=== PATIENT | male | born 1985 | race Caucasian/White ===

== ENCOUNTER 2022-01-25 21:24 | Observation (INO) ==
[2022-01-26 00:40] LABS: Basophils # (auto) 0.04 K/uL (0-0.2); Basophils % (auto) 0.2 %; Hematocrit (blood only) 40.2 % (40.1-51.0); Hemoglobin 14.2 g/dl (14.0-18.0); Immature Granulocytes # (auto) 0.11 K/uL (0.00-0.02); Immature Granulocytes % (auto) 0.6 %; Lymphocytes # (auto) 0.67 K/uL (1.2-3.4); Lymphocytes % (auto) 3.5 %; Mean Corpuscular Hemoglobin 32.7 pg (25.0-34.0); Mean Corpuscular Hgb Conc 35.3 g/dL (32.0-36.0); Mean Corpuscular Volume 92.6 fL (80.0-100.0); Mean Platelet Volume 10.8 fL (9.4-12.4); Monocytes # (auto) 1.21 K/uL (0.24-0.82); Monocytes % (auto) 6.3 %; Neutrophils # (auto) 17.33 K/uL (1.4-6.5); Neutrophils % (auto) 89.4 %; Platelet Count 249 K/uL (130-400); RDW Coefficient of Variation 11.7 % (11.5-14.5); RDW Standard Deviation 39.8 fL (36.4-46.3); Red Blood Count 4.34 M/uL (4.63-6.08); White Blood Count 19.36 K/ul (4.8-10.8)
[2022-01-26 00:53] LABS: Albumin Globulin Ratio 2.2 (0.9-2); Albumin Level 5.2 gm/dl (3.4-5.0); BUN Creatinine Ratio 23.1 (10-20); Bilirubin,Total 0.9 mg/dl (0.2-1.0); Creatinine Clr Calc Pharmacy 102.2 ml/min; Est GFR (African American) 126.1 ml/min; Est GFR (Non-African American) 108.8 ml/min; Globulin 2.4 gm/dl (2.5-4.0); Potassium 3.7 mmol/L (3.5-5.1); Total Protein 7.6 gm/dl (6.0-8.3)
[2022-01-26] MEDS ORDERED: LEVETIRACETAM IV STA (02:01)
[2022-01-26] MEDS ORDERED: SODIUM CHLORIDE 0.9% IV STA (02:01)
[2022-01-26] MEDS ORDERED: levETIRAcetam 1,000 MG in 0.9 % SODIUM CHLORIDE 100 ML IV STA (02:06)
--- NOTE | 2022-01-26 02:53 | History & Physical Report ---
Date of Service January 26, 2022 Assessment & Plan (1) Seizure-like activity: Plan: Patient is a 36 yo male with PMHx of anxiety, ADD, OCD, cyclic vomiting syndrome, and seizure admitted on 01/26/22 for seizure. Seizure - Patient with 2 reported seizures in the past 24 hours - Will admit to [id number] w/ tele - Head CT 01/25: IMPRESSION: No acute intracranial abnormality noting a motion compromised examination. - Mild leukocytosis with WBC 19.36, likely reactive - Lactate wnl at 1.1 and 1.3 - Prolactin elevated at 31.4 - UDS positive for marijuana, otherwise negative - Alcohol level negative - Keppra 1g IV given to patient in ER - Will start patient on Keppra 500mg BID. Further recommendations per neurology. - Ativan 2mg IV to be used prn for seizure activity - Seizure precautions - EEG ordered - Neurology consulted Alcohol use - Patient reports 3-5 glasses of red wine nightly - No reported hx of alcohol withdrawal - Will start AWSS at risk protocol Anxiety - No home medication for anxiety - Unknown current therapy for the anxiety - Patient does feel more stressed recently but denies recent changes in mood Dispo: Admit to [facility] w/ tele Diet: regular Code status: Full code History of Present Illness Chief Complaint: seizure Primary Care Provider: Logan Nails DO Patient is a 36 yo male with PMHx of anxiety, ADD, OCD, cyclic vomiting syndrome, and seizure who presented s/p seizure. Patient was seen in the ER yesterday afternoon for possible seizure. Patient was discharged home after a normal head CT, discussion with neurology, labs, and observation. After returning home, patient had another witnessed seizure episode by family members. Unfortunately there is no family at bedside at this time and history is limited by patient. Patient does have amnesia and does not recall being in the ER yesterday. He states that the last thing he remembers was waking up yesterday morning, going downstairs with his family, and reporting a hot flash / sweats. Patient states that he has had these abnormal hot flash episodes for about 8 years; episodes are described as periods of hot flash, "profuse sweating," nausea, confusion, and diffuse body aches/body burning. The episodes were occurring multiple times weekly but more recently have decreased in frequency, occurring about once every 2 weeks. Patient states that these hot flashes have been worked up many times with no specific diagnosis. Patient also reports a hx of seizures that started in high school but he has not had one "in a long time" and is not on an anti-epileptic medication. Previously had license taken away due to the seizure hx but has had his license back for some time. During the interview, patient did become confused, particularly about his age, and at one point said "well I'm 33 now..." When asked for clarification based on his documented age in the chart being 36, patient stated "no, that's wrong, I'm 33. Or maybe 34. No, 33. Wait, I was born in 1985." Patient did become frustrated by this confusion and memory loss. Patient states that he is currently completing his degree at [employer] in romance language studies. 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 Patient does admit to recent increased stress, especially at work during this football/busy season. He has a hx of anxiety but apart from being more stressed with work he does not feel that his mood has been more anxious. Patient is a regular alcohol user and drinks 3-5 glasses of red wine per night; denies beer or liquor consumption. He does not feel that he has had withdrawal in the past. He uses + medical marijuana, both smokes and uses capsules, multiple times daily; reports higher THC content with the medical marijuana which he buys from a distributor. Patient denies synthetic marijuana use. He denies other drug use. Patient reports mild CLANCY and nausea at this time. Denies CP, SOB, abd pain, vomiting, numbness, or tingling. Allergies Allergy/AdvReac Type Severity Reaction Status Date / Time Sulfa (Sulfonamide Allergy Unknown "SULFA = Verified 01/26/22 00:38 Antibiotics) UNSURE OF REACTION" Home Medications Medication Instructions Recorded Confirmed Type K-99 Mix A Pro 1 dose PO DAILY 01/26/22 01/26/22 History Selicore Binder 1 dose PO DAILY 01/26/22 01/26/22 History cetirizine 10 mg tablet (Zyrtec) 10 mg PO DAILY PRN Congestion 01/26/22 01/26/22 History cod liver oil 1 cap PO DAILY 01/26/22 01/26/22 History coenzyme Q10 100 mg capsule 100 mg PO DAILY 01/26/22 01/26/22 History (CoQ-10) famotidine 20 mg tablet (Pepcid) 20 mg PO DAILY 01/26/22 01/26/22 History magnesium oxide 500 mg tablet 500 mg PO DAILY 01/26/22 01/26/22 History Past Med/Surg History Medical History ADD (attention deficit disorder) Anxiety Cyclical vomiting Depression Hypokalemia OCD (obsessive compulsive disorder) Overdose (05/28/14) Seizures Suicidal ideation Surgical History No significant past surgical history Family History Other No significant family history Social History Smoking Status: Former smoker Tobacco Type: Cigarettes Age Started Using Tobacco: 17; Age Quit Using Tobacco: 33; packs per day: 1; Years Smoked: 16; Second Hand Exposure: No; Hx Alcohol Use: Yes Alcohol type: wine Hx Substance Use: Yes Last Used Substance: Days (ago) Preferred Language: Sammarinese Communication Ability: Effective Visual Impairment: Limited Hearing Ability: Normal Shovel Handle Assembler Required: No Beliefs That Will Affect Care: None marital status: Single Current Living Situation: Family current occupational status: employed Other Information That Helps Us Care for You: No Feels Safe at Home: Yes Safety Concerns: Feels Safe At This Time Childhood Exposure to Second-Hand Smoke: Yes Diet Comment: organic caffeine: Yes Dental Care, Regularly: Yes Physical Activity Frequency: 5-6 Times per Week Physical Activity Frequency Comment: run, cross country skiing weights and cardio Seatbelt Use: always Sunscreen Use: No Assistive Devices: None Review of Systems Review of Systems: see HPI Physical Exam Physical Exam: GENERAL: Laying in bed in no acute distress. Vital signs reviewed. EYES: PERRL. EOMI. Anicteric sclerae. HENT: Moist mucous membranes. RESPIRATORY: Clear to auscultation bilaterally. No wheezing, rales, or rhonchi. CARDIOVASCULAR: Regular rate and rhythm. No murmurs. No JVD. ABDOMEN: Soft, non-tender and non-distended. Normal bowel sounds. EXTREMITIES: No edema. Non-tender. 2+ pedal pulses. SKIN: Warm, dry. NEUROLOGIC: Normal speech. No focal neurological deficits. 5/5 strength in BUE and BLE. PSYCHIATRIC: Cooperative. Appropriate mood and affect. Results & Data Results & Data ([facility]) Vital Signs (Past 12 Hours) Vital Signs Temp Pulse Pulse Resp BP Pulse Ox O2 Del Method 01/26/22 02:00 73 20 115/59 L 97 Room Air 01/26/22 00:55 60 20 128/72 97 01/25/22 22:55 99 Room Air 01/25/22 21:30 36.7 C 67 18 99 Laboratory Results 01/26/22 01/26/22 01/26/22 Range/Units 03:15 03:15 01:19 WBC (4.8-10.8) K/ul RBC (4.63-6.08) M/uL Hgb (14.0-18.0) g/dl Hct (40.1-51.0) % MCV (80.0-100.0) fL MCH (25.0-34.0) pg MCHC (32.0-36.0) g/dL RDW Std Deviation (36.4-46.3) fL RDW Coeff of Debbie (11.5-14.5) % Plt Count (130-400) K/uL MPV (9.4-12.4) fL Immature Gran % (Auto) % Neut % (Auto) % Lymph % (Auto) % Nome % (Auto) % Eos % (Auto) % Baso % (Auto) % Neut # (Auto) (1.4-6.5) K/uL Lymph # (Auto) (1.2-3.4) K/uL Nome # (Auto) (0.24-0.82) K/uL Eos # (Auto) (0-0.50) K/uL Baso # (Auto) (0-0.2) K/uL Immature Gran # (Auto) (0.00-0.02) K/uL Sodium (136-145) mmol/L Potassium (3.5-5.1) mmol/L Chloride (98-107) mmol/L Carbon Dioxide (21-32) mmol/L Anion Gap (3-11) BUN (6-23) mg/dl Creatinine (0.6-1.4) mg/dl Est Cr Clr Drug Dosing ml/min Est GFR ( Amer) ml/min Est GFR (Non-Af Amer) ml/min BUN/Creatinine Ratio (10-20) Glucose (70-99(Fasting)) mg/dl Lactate (0.4-2.0) mmol/L Calcium (8.5-10.1) mg/dl Total Bilirubin (0.2-1.0) mg/dl AST (13-39) U/L ALT (7-52) U/L Alkaline Phosphatase (34-104) U/L Total Protein (6.0-8.3) gm/dl Albumin (3.4-5.0) gm/dl Globulin (2.5-4.0) gm/dl Albumin/Globulin Ratio (0.9-2) Urine Opiates Screen Neg (Neg) Ur Methadone, Qual Neg (Neg) Urine Barbiturates Neg (Neg) Ur Phencyclidine (PCP) Neg (Neg) U Amphetamin/Meth Scrn Neg (Neg) MDMA (Ecstasy) Screen Neg (Neg) U Benzodiazepines Scrn Neg (Neg) Ur Cocaine Metabolite Neg (Neg) U Marijuana (THC) Screen Pos H (Neg) U Marijuana THC Carboxy Pending Drug Screen Comment Pending SARS-CoV-2, RNA, NAAT NEGATIVE (NEGATIVE) 01/26/22 01/25/22 01/25/22 Range/Units 01:02 23:15 23:15 WBC 19.36 H (4.8-10.8) K/ul RBC 4.34 L (4.63-6.08) M/uL Hgb 14.2 (14.0-18.0) g/dl Hct 40.2 (40.1-51.0) % MCV 92.6 (80.0-100.0) fL MCH 32.7 (25.0-34.0) pg MCHC 35.3 (32.0-36.0) g/dL RDW Std Deviation 39.8 (36.4-46.3) fL RDW Coeff of Debbie 11.7 (11.5-14.5) % Plt Count 249 (130-400) K/uL MPV 10.8 (9.4-12.4) fL Immature Gran % (Auto) 0.6 % Neut % (Auto) 89.4 % Lymph % (Auto) 3.5 % Nome % (Auto) 6.3 % Eos % (Auto) 0.0 % Baso % (Auto) 0.2 % Neut # (Auto) 17.33 H (1.4-6.5) K/uL Lymph # (Auto) 0.67 L (1.2-3.4) K/uL Nome # (Auto) 1.21 H (0.24-0.82) K/uL Eos # (Auto) 0.00 (0-0.50) K/uL Baso # (Auto) 0.04 (0-0.2) K/uL Immature Gran # (Auto) 0.11 H (0.00-0.02) K/uL Sodium 135 L (136-145) mmol/L Potassium 3.7 (3.5-5.1) mmol/L Chloride 100 (98-107) mmol/L Carbon Dioxide 21 (21-32) mmol/L Anion Gap 14 H (3-11) BUN 21 (6-23) mg/dl Creatinine 0.91 (0.6-1.4) mg/dl Est Cr Clr Drug Dosing 102.2 ml/min Est GFR ( Amer) 126.1 ml/min Est GFR (Non-Af Amer) 108.8 ml/min BUN/Creatinine Ratio 23.1 H (10-20) Glucose 128 H (70-99(Fasting)) mg/dl Lactate 1.3 (0.4-2.0) mmol/L Calcium 10.0 (8.5-10.1) mg/dl Total Bilirubin 0.9 (0.2-1.0) mg/dl AST 32 (13-39) U/L ALT 21 (7-52) U/L Alkaline Phosphatase 46 (34-104) U/L Total Protein 7.6 (6.0-8.3) gm/dl Albumin 5.2 H (3.4-5.0) gm/dl Globulin 2.4 L (2.5-4.0) gm/dl Albumin/Globulin Ratio 2.2 H (0.9-2) Urine Opiates Screen (Neg) Ur Methadone, Qual (Neg) Urine Barbiturates (Neg) Ur Phencyclidine (PCP) (Neg) U Amphetamin/Meth Scrn (Neg) MDMA (Ecstasy) Screen (Neg) U Benzodiazepines Scrn (Neg) Ur Cocaine Metabolite (Neg) U Marijuana (THC) Screen (Neg) U Marijuana THC Carboxy Drug Screen Comment SARS-CoV-2, RNA, NAAT (NEGATIVE) Diagnostic Findings DAWSON MUNIZ(DAWSON)[id number] Allergy/Adv: Sulfa (Sulfonamide Antibiotics) (More) Close Head CT (Signed) Justin Perez - 01/25/22 Pelvis X-Ray (Signed) Faizan Dougherty - [birth year]19 [employer] [place], [place] [phone] CT Scan Report Patient:DAWSON MUNIZ Admit Date:01/25/22 MR#:[id number] Address1:[address] [place], [place] [address]PARESH MENDOZA Acct ID:[id number] Address2: Date:1985 [facility] Zip:[place] [address] Age:36 Location:ED Sex:M Room/Bed: Att Phy: Diagnosis:SEIZURE Josie Phy:Logan Nails, Service Date:01/25/22 Fam Phy: Interpreting Phy:Justin Perez MDAdmit Phy: Ordering Phy:Joe Irene MD cc: ~ CT SCAN OF THE BRAIN WITHOUT IV CONTRAST CLINICAL HISTORY: Change in mental status. COMPARISON STUDY: No priors TECHNIQUE: Unenhanced axial CT scan of the brain is performed from the vertex to the skull base. A dose lowering technique was utilized adhering to the principles of ALARA. The examination is compromised by motion artifact. The patient was scanned 3 times in an effort to improve image quality. CT DOSE: 1305.31 mGy.cm FINDINGS: Brain parenchyma: The brain parenchyma is normal in appearance. There is no hemorrhage, mass effect, or evidence of acute territorial ischemia by CT criteria. Serrano-white matter differentiation is preserved. No extra-axial fluid collection is seen. Ventricles, sulci, cisterns: Normal in configuration. Intracranial vasculature: The visualized intracranial vasculature at the skull base is normal in appearance. Calvarium: Unremarkable. Sinuses and mastoids: The visualized paranasal sinuses are clear. The mastoid air cells are well pneumatized. Orbits: The bony orbits are grossly intact. IMPRESSION: No acute intracranial abnormality noting a motion compromised examination. ACT 112: Negative or not required by law. Electronically signed by: Justin Perez M.D. 01/25/2022 2:37 PM Dictated:01/25/22 143 Transcribed: 01/25/221433 Supervising Physician Co-Signing Physician Notes Patient seen and examined, chart reviewed, case discussed with Dr. Flood and I agree with the assessment and plan as above. In brief, patient is a 36yo male with h/o ADD/Anxiety, OCD and Cyclic vomiting, he reports a prior history of seizures and was on medications for some time but is unable to provide further details. He presents to the ER x 2 for seizure at home, post ictal confusion and tongue trauma noted. On exam he is awake and alert, answering questions appropriately Skin - intact, no rash HEENT - tongue bruising, neck supple Heart - +S1/S2, regular Lungs - CTA Abd - +BS, soft, NT/ND Ext - warm, well perfused Neuro - grossly intact Labs and images reviewed Assessment/Plan Keppra administered in ER. Will continue 500mg BID MRI EEG Neuro consultation appreciated Remainder as above Resident Activity Tracking Resident Involvement: Resident Care Provided Care Provided: Adult Hospital Medicine
[2022-01-26 04:11] LABS: Amphetamines+Metham, Urine Neg (Neg); Barbiturates, Urine Neg (Neg); Benzodiazepine, Urine Neg (Neg); Cocaine, Urine Neg (Neg); MDMA (Ecstacy), Urine Neg (Neg); Methadone, Urine Neg (Neg); Opiate, Urine Neg (Neg); Phencyclidine, Urine Neg (Neg)
[2022-01-26] MEDS ORDERED: ONDANSETRON INJ 2 MG/ML 2 ML VIAL IV STA (04:24)
[2022-01-26] MEDS ORDERED: ACETAMINOPHEN 325 MG TAB PO PRN (05:23)
[2022-01-26] MEDS ORDERED: LORazepam 2 MG/2 ML SYR IV PRN (05:23)
[2022-01-26] MEDS ORDERED: LORazepam 1 MG TAB PO PRN (05:23)
[2022-01-26] MEDS ORDERED: ONDANSETRON INJ 2 MG/ML 2 ML VIAL IV PRN (05:23)
[2022-01-26] MEDS ORDERED: POLYETHYLENE (MIRALAX) 17 GM PACK PO PRN (05:23)
[2022-01-26] MEDS ORDERED: ALUMINUM/MAGNESIUM SUSP 30 ML UDC PO PRN (05:23)
[2022-01-26] MEDS ORDERED: diphenhydrAMINE 50 MG/ML VIAL IV ONE (05:23)
[2022-01-26] MEDS ORDERED: LORazepam 2 MG in SYRINGE 0 ML IV PRN ×2 (05:32→16:33)
[2022-01-26] MEDS: LACTATED RINGER'S 1,000 ML IV SCH ×3 (06:08→22:29)
[2022-01-26] MEDS: FOLIC ACID 1 MG TAB PO SCH (07:47)
[2022-01-26] MEDS: FAMOTIDINE 20 MG TAB PO SCH (07:47)
[2022-01-26] MEDS: THIAMINE HCL 100 MG TAB PO SCH (07:47)
[2022-01-26] MEDS: levETIRAcetam 500 MG TAB PO SCH ×2 (07:47→19:55)
[2022-01-26] MEDS: MAGNESIUM OXIDE 400 MG TAB PO SCH (07:47)
--- NOTE | 2022-01-26 08:25 | Emergency Department Note ---
Impression & Plan Seizures The patient will be evaluated by the [facility] for further inpatient care ED Provider Note NAME: DAWSON MUNIZ AGE: 36 SEX: M ARRIVES VIA: Walk-In INFORMANT: Patient and his brother by way of phone ED PROVIDER(S): Kelley Rueda DO CHIEF COMPLAINT: Seizure PLAN: Disposition: Admit to the [facility] for further inpatient care Condition: Guarded MEDICAL DECISION MAKING: This is a 36-year-old male patient who presents to the emergency department for recurrent seizure. The patient was seen here in the emergency department christiano ier today for seizure. Work-up at that time was negative. Department of transportation paperwork was submitted. Patient was instructed to follow-up with neurology. Unfortunately, the patient had another seizure this evening. Repeat blood work revealed no significant change. The patient was loaded with IV Keppra. He will require inpatient care and neurology evaluation. Triage Nursing notes reviewed and agree with them. Additional history obtained from the patient's brother by phone Prior medical records reviewed from emergency department visit earlier today Vital Signs: reviewed and unremarkable Differential diagnosis: Recurrent seizure, pseudoseizure, drug abuse ER treatment provided: IV Keppra Diagnostics interpreted by me: Cardiac Monitoring: Normal sinus rhythm at a rate of 64 Laboratory studies: See below HPI: 36/M arrives for evaluation of seizure. Patient was discharged back home from the emergency department late this afternoon/evening and apparently had another seizure around 7 PM according to the patient's brother. Patient states he has a longstanding history of episodes of hot flashes/confusion. He also does have a history of seizures. His mother was concerned that he had another seizure this afternoon after being at the hospital earlier today. ROS: See above HPI for pertinent positives & negatives. A total of 10 systems reviewed and were otherwise negative. PAST MEDICAL HISTORY:See Below PAST SURGICAL HISTORY:See Below FAMILY HISTORY:See Below SOCIAL HISTORY:See Below HOME MEDICATIONS:See list ALLERGIES:See list VITALS:See Below PHYSICAL EXAMINATION: HEENT: Head - normocephalic and atraumatic Pupils are equal, round, and reactive to light. Extraocular eye muscles are intact, and sclera are anicteric. Nose - moist nasal mucosa without discharge. Mouth - moist buccal mucosa. Oropharynx is nonerythematous and there is no tonsillar exudate or edema noted. Neck: Supple; no cervical lymphadenopathy Heart: Regular rate and rhythm. There is a normal S1 and S2 with no murmurs, clicks, or gallops appreciated. Lungs: Clear to auscultation bilaterally with no wheezes, rales, or rhonchi. Abdomen: Soft, completely nontender, nondistended, with good bowel sounds. There are no palpable pulsatile masses or hepatosplenomegaly. There is no guarding, rigidity, or rebound noted. Extremities: No evidence of cyanosis, clubbing, or edema. There are easily palpable peripheral pulses. Skin: warm and diaphoretic with good turgor and no rashes. ED COURSE: Times/Reassessments: 0035: The patient was evaluated in room B5. A complete history and physical was performed. Seizure precautions were taken. An order was placed for continuous cardiac monitoring. The patient was in a normal sinus rhythm at a rate of 64. Previous electronic medical records were reviewed. Laboratory studies were drawn as above. Patient was bolused with IV Keppra. I discussed the case with the [facility]ist and they will evaluate for further management. Kelley Rueda, Past Med/Surg History Medical History ADD (attention deficit disorder) Anxiety Cyclical vomiting Depression Hypokalemia OCD (obsessive compulsive disorder) Overdose (05/28/14) Seizures Suicidal ideation Surgical History No significant past surgical history Family History Other No significant family history Social History Smoking Status: Former smoker Tobacco Type: Cigarettes Age Started Using Tobacco: 17; Age Quit Using Tobacco: 33; packs per day: 1; Years Smoked: 16; Second Hand Exposure: No; Hx Alcohol Use: Yes Alcohol type: wine Hx Substance Use: Yes Last Used Substance: Days (ago) Preferred Language: Spanish Communication Ability: Effective Visual Impairment: Limited Hearing Ability: Normal Gang Pusher Required: No Beliefs That Will Affect Care: None marital status: Single Current Living Situation: Family current occupational status: employed Other Information That Helps Us Care for You: No Feels Safe at Home: Yes Safety Concerns: Feels Safe At This Time Childhood Exposure to Second-Hand Smoke: Yes Diet Comment: organic caffeine: Yes Dental Care, Regularly: Yes Physical Activity Frequency: 5-6 Times per Week Physical Activity Frequency Comment: run, cross country skiing weights and cardio Seatbelt Use: always Sunscreen Use: No Assistive Devices: None Allergies Allergies Allergy/AdvReac Type Severity Reaction Status Date / Time Sulfa (Sulfonamide Allergy Unknown "SULFA = Verified 01/26/22 00:38 Antibiotics) UNSURE OF REACTION" Home Meds Home Medications Medication Instructions Recorded Confirmed K-99 Mix A Pro 1 dose PO DAILY 01/26/22 01/26/22 Selicore Binder 1 dose PO DAILY 01/26/22 01/26/22 cetirizine 10 mg tablet (Zyrtec) 10 mg PO DAILY PRN Congestion 01/26/22 01/26/22 cod liver oil 1 cap PO DAILY 01/26/22 01/26/22 coenzyme Q10 100 mg capsule 100 mg PO DAILY 01/26/22 01/26/22 (CoQ-10) famotidine 20 mg tablet (Pepcid) 20 mg PO DAILY 01/26/22 01/26/22 magnesium oxide 500 mg tablet 500 mg PO DAILY 01/26/22 01/26/22 Results & Data (ED) Vital Signs Vital Signs - 24 hr 01/25/22 21:30 01/25/22 22:55 01/26/22 00:55 Temperature 36.7 C Temperature Source Temporal Artery Scan Pulse Rate 67 Pulse Rate [Left Radial] 60 Pulse Rhythm [Left Radial] Regular Respiratory Rate 18 20 Respiratory Effort / Characteristics Non-Labored Respiratory Depth Normal Blood Pressure [Left Arm] 128/72 Blood Pressure Mean [Left Arm] 90 Blood Pressure Position [Left Arm] Lying Pulse Oximetry 99 99 97 Oxygen Delivery Method Room Air Sepsis Recent Fever Within 48 Hours Yes Sepsis New/Unexplained Change in Mental Status No Sepsis Action Taken by Nursing No Action Required 01/26/22 02:00 Temperature Temperature Source Pulse Rate Pulse Rate [Left Radial] 73 Pulse Rhythm [Left Radial] Respiratory Rate 20 Respiratory Effort / Characteristics Non-Labored Respiratory Depth Normal Blood Pressure [Left Arm] 115/59 L Blood Pressure Mean [Left Arm] 77 Blood Pressure Position [Left Arm] Lying Pulse Oximetry 97 Oxygen Delivery Method Room Air Sepsis Recent Fever Within 48 Hours Sepsis New/Unexplained Change in Mental Status Sepsis Action Taken by Nursing Laboratory Data Result diagrams: 01/27/22 05:36 01/27/22 05:36 Lab Results 01/25/22 01/25/22 01/26/22 Range/Units 23:15 23:15 01:02 WBC 19.36 H (4.8-10.8) K/ul RBC 4.34 L (4.63-6.08) M/uL Hgb 14.2 (14.0-18.0) g/dl Hct 40.2 (40.1-51.0) % MCV 92.6 (80.0-100.0) fL MCH 32.7 (25.0-34.0) pg MCHC 35.3 (32.0-36.0) g/dL RDW Std Deviation 39.8 (36.4-46.3) fL RDW Coeff of Debbie 11.7 (11.5-14.5) % Plt Count 249 (130-400) K/uL MPV 10.8 (9.4-12.4) fL Immature Gran % (Auto) 0.6 % Neut % (Auto) 89.4 % Lymph % (Auto) 3.5 % [place] % (Auto) 6.3 % Eos % (Auto) 0.0 % Baso % (Auto) 0.2 % Neut # (Auto) 17.33 H (1.4-6.5) K/uL Lymph # (Auto) 0.67 L (1.2-3.4) K/uL Highlands # (Auto) 1.21 H (0.24-0.82) K/uL Eos # (Auto) 0.00 (0-0.50) K/uL Baso # (Auto) 0.04 (0-0.2) K/uL Immature Gran # (Auto) 0.11 H (0.00-0.02) K/uL Sodium 135 L (136-145) mmol/L Potassium 3.7 (3.5-5.1) mmol/L Chloride 100 (98-107) mmol/L Carbon Dioxide 21 (21-32) mmol/L Anion Gap 14 H (3-11) BUN 21 (6-23) mg/dl Creatinine 0.91 (0.6-1.4) mg/dl Est Cr Clr Drug Dosing 102.2 ml/min Est GFR ( Amer) 126.1 ml/min Est GFR (Non-Af Amer) 108.8 ml/min BUN/Creatinine Ratio 23.1 H (10-20) Glucose 128 H (70-99(Fasting)) mg/dl Lactate 1.3 (0.4-2.0) mmol/L Calcium 10.0 (8.5-10.1) mg/dl Total Bilirubin 0.9 (0.2-1.0) mg/dl AST 32 (13-39) U/L ALT 21 (7-52) U/L Alkaline Phosphatase 46 (34-104) U/L Total Protein 7.6 (6.0-8.3) gm/dl Albumin 5.2 H (3.4-5.0) gm/dl Globulin 2.4 L (2.5-4.0) gm/dl Albumin/Globulin Ratio 2.2 H (0.9-2) SARS-CoV-2, RNA, NAAT (NEGATIVE) 01/26/22 Range/Units 01:19 WBC (4.8-10.8) K/ul RBC (4.63-6.08) M/uL Hgb (14.0-18.0) g/dl Hct (40.1-51.0) % MCV (80.0-100.0) fL MCH (25.0-34.0) pg MCHC (32.0-36.0) g/dL RDW Std Deviation (36.4-46.3) fL RDW Coeff of Debbie (11.5-14.5) % Plt Count (130-400) K/uL MPV (9.4-12.4) fL Immature Gran % (Auto) % Neut % (Auto) % Lymph % (Auto) % [place] % (Auto) % Eos % (Auto) % Baso % (Auto) % Neut # (Auto) (1.4-6.5) K/uL Lymph # (Auto) (1.2-3.4) K/uL [place] # (Auto) (0.24-0.82) K/uL Eos # (Auto) (0-0.50) K/uL Baso # (Auto) (0-0.2) K/uL Immature Gran # (Auto) (0.00-0.02) K/uL Sodium (136-145) mmol/L Potassium (3.5-5.1) mmol/L Chloride (98-107) mmol/L Carbon Dioxide (21-32) mmol/L Anion Gap (3-11) BUN (6-23) mg/dl Creatinine (0.6-1.4) mg/dl Est Cr Clr Drug Dosing ml/min Est GFR ( Amer) ml/min Est GFR (Non-Af Amer) ml/min BUN/Creatinine Ratio (10-20) Glucose (70-99(Fasting)) mg/dl Lactate (0.4-2.0) mmol/L Calcium (8.5-10.1) mg/dl Total Bilirubin (0.2-1.0) mg/dl AST (13-39) U/L ALT (7-52) U/L Alkaline Phosphatase (34-104) U/L Total Protein (6.0-8.3) gm/dl Albumin (3.4-5.0) gm/dl Globulin (2.5-4.0) gm/dl Albumin/Globulin Ratio (0.9-2) SARS-CoV-2, RNA, NAAT NEGATIVE (NEGATIVE) Administered Medications Acetaminophen (Acetaminophen 325 Mg Tab) 650 mg PO Q4H PRN PRN Reason: pain/fever Stop: 02/25/22 05:22 Last Admin: 01/27/22 02:58 Dose: 650 mg Documented By: [facility] [place] Hydrox/Mg Hydrox/Simethicone (Aluminum/Magnesium Susp 30 Ml Udc) 30 ml PO Q6H PRN PRN Reason: Dyspepsia Stop: 02/25/22 05:22 Last Admin: 01/26/22 07:50 Dose: 30 ml Documented By: GODWIN Famotidine (Famotidine 20 Mg Tab) 20 mg PO DAILY [facility] Stop: 02/25/22 08:59 Last Admin: 01/26/22 07:47 Dose: 20 mg Documented By: GODWIN Folic Acid (Folic Acid 1 Mg Tab) 1 mg PO QAM VIKTOR Stop: 02/25/22 08:59 Last Admin: 01/26/22 07:47 Dose: 1 mg Documented By: GODWIN Lactated Ringer's (Lr) 1,000 mls @ 125 mls/hr IV .Q8H VIKTOR Stop: 02/25/22 05:22 Last Admin: 01/27/22 05:41 Dose: 125 mls/hr Documented By: Infusion: 01/27/22 05:41 Dose: 125 mls/hr Documented By: Admin: 01/26/22 22:29 Dose: 125 mls/hr Documented By: Infusion: 01/26/22 22:13 Dose: 125 mls/hr Documented By: Admin: 01/26/22 14:13 Dose: 125 mls/hr Documented By: Infusion: 01/26/22 14:08 Dose: 125 mls/hr Documented By: Admin: 01/26/22 06:08 Dose: 125 mls/hr Documented By: SASHA Lorazepam 1 mg/ Syringe 1 mls @ 2 mls/min IV UD PRN; Protocol PRN Reason: EtOH Withdrawal AWSS Score 6,7 Stop: 02/25/22 16:32 Last Admin: 01/26/22 19:55 Dose: 2 mls/min Documented By: LOUIE Levetiracetam (Levetiracetam 500 Mg Tab) 500 mg PO BID [facility] Stop: 02/25/22 08:59 Last Admin: 01/26/22 19:55 Dose: 500 mg Documented By: Admin: 01/26/22 07:47 Dose: 500 mg Documented By: GODWIN Magnesium Oxide (Magnesium Oxide 400 Mg Tab) 400 mg PO DAILY [facility] Stop: 02/25/22 08:59 Last Admin: 01/26/22 07:47 Dose: 400 mg Documented By: GODWIN Thiamine HCl (Thiamine Hcl 100 Mg Tab) 100 mg PO QAM [facility] Stop: 02/25/22 08:59 Last Admin: 01/26/22 07:47 Dose: 100 mg Documented By: GODWIN Discontinued Medications Diphenhydramine HCl (Diphenhydramine 50 Mg/Ml Vial) 25 mg IV NOW ONE Stop: 01/26/22 05:24 Last Admin: 01/26/22 06:08 Dose: 25 mg Documented By: SASHA Gadobutrol (Gadobutrol 65ml Vial) 6 ml IV ONCE ONE Stop: 01/26/22 21:21 Last Admin: 01/26/22 21:20 Dose: 6 ml Documented By: TAZ Levetiracetam 2,000 mg/ Sodium (Chloride) 270 mls @ 999 mls/hr IV NOW STA Stop: 01/26/22 02:14 Last Admin: 01/26/22 02:09 Dose: Not Given Documented By: AMBROSIO Levetiracetam 1,000 mg/ Sodium (Chloride) 110 mls @ 999 mls/hr IV NOW STA Stop: 01/26/22 02:12 Last Infusion: 01/26/22 02:37 Dose: 0 mls/hr Documented By: Admin: 01/26/22 02:22 Dose: 999 mls/hr Documented By: AMBROSIO Lorazepam (Lorazepam 1 Mg Tab) 1 mg PO ONE PRN; Protocol PRN Reason: EtoH Withdrawal AWSS 6,7,8,9,10 Last Admin: 01/26/22 10:58 Dose: 1 mg Documented By: GODWIN Ondansetron HCl (Ondansetron Inj 2 Mg/Ml 2 Ml Vial) 4 mg IV NOW STA Stop: 01/26/22 04:25 Last Admin: 01/26/22 04:32 Dose: 4 mg Documented By: AN Discharge Plan Visit Data Chief Complaint: Seizure Stated Complaint: SEIZURE ED Provider: Kelley Rueda Discharge Problem: Seizures Patient Disposition: Admitted As Inpatient Discharge Instructions Interventions: ED Discharge Assessment Last Done: 01/26/22 04:36
--- NOTE | 2022-01-26 08:25 | Hospitalist Progress Note ---
Date of Service January 26, 2022 Assessment & Plan (1) Seizure-like activity: Plan: Patient is a 36 yo male with PMHx of anxiety, ADD, OCD, cyclic vomiting syndrome, and seizure admitted on 01/26/22 for seizure. Seizure - Patient with 2 reported seizures in the past 24 hours - Will admit to medr w/ tele - Head CT 01/25: No acute intracranial abnormality noting a motion compromised examination. - Mild leukocytosis with WBC 19.36, likely reactive - Lactate wnl at 1.1 and 1.3 - Prolactin elevated at 31.4 - UDS positive for marijuana, otherwise negative. Possible link between symptoms and marijuana use. - Alcohol level negative - Keppra 1g IV given to patient in ER * Keppra 500mg BID. Regimen endorsed by neurology. * Ativan 2mg IV to be used prn for seizure activity * Seizure precautions * EEG ordered * Neurology consulted Alcohol use - Patient reports 3-5 glasses of red wine nightly - No reported hx of alcohol withdrawal * AWSS at risk protocol Anxiety - No home medication for anxiety - Unknown current therapy for the anxiety - Patient does feel more stressed recently but denies recent changes in mood. This is contradicted by his immediate family. Plan to suggest counseling in the future. Dispo: Admit to [facility] w/ tele Diet: regular Code status: Full code Admission and Anticipated Discharge Date Admission Date: January 26, 2022 Supervising Physician Co-Signing Physician Notes I saw and evaluated patient and agree with assessment plan as documented by Dr. Barber. Patient was admitted with seizure activity and will have an MRI done. He has been placed on CIWA protocol with mild doses of IV Ativan available only if needed. His brother admits that patient has a large amount of marijuana use on a regular basis. Patient admits that he has been using this marijuana use to self medicate given history of anxiety and depression. There is a lot of family psychosocial stressors including recent history of suicide by patient's father. This is affecting patient overall patient/family dynamics. Patient also consumes alcohol but not on a regular basis so there is some mild likelihood of potential alcohol withdrawal causing the seizures but I feel that this is more potentially secondary to marijuana use. We will appreciate neurology recommendations for further care. Patient may be a candidate to be on Keppra going forward./He is doing well overnight and can tolerate p.o. as well as has no episodes of nausea/vomiting or any further seizure episodes and does not require significant amounts of Ativan I do feel that he would be able to go home tomorrow. We would strongly recommend starting a medicine such as an SSRI for anxiety/depression upon discharge so that patient can follow-up with his outpatient primary care provider. Patient has seen psychiatry in the past but is not currently seeing psychiatry. Subjective Patient is awake and alert in bed upon arrival. He cannot recall what happened to him. He reports low appetite, headache, nausea, and anxiety. He reportedly had his last drink 2 days ago. Per his brother and [id number], he smokes a "massive amount of marijuana." They also report a pattern of mood changes from aggressive and abusive behavior to severe depression. His father apparently recently committed suicide 8 months ago, after which patient relapsed from sobriety and started drinking again. Despite his drug use, he reportedly holds down a job without incident. Review of Systems Review of Systems: All systems reviewed & are unremarkable except as noted in HPI & below Physical Exam Physical Exam: General: Anxious-appearing, but otherwise alert, interactive, and in mild acute distress. HEENT: Normocephalic, atraumatic. EOM intact. Good conjugate gaze. Nares patent. Moist mucosal membranes. Neck: Supple. No lymphadenopathy. Normal ROM. CV: Regular rate and rhythm. Normal S1 and S2. No murmurs gallops or rubs. Respiratory: Normal respiratory effort. Lungs clear to auscultation bilaterally. No crackles, rhonchi, or wheezes. Abdomen: Soft, nondistended abdomen. No bruits heard on auscultation. No tenderness to deep palpation. No guarding or rebound. Extremities: Capillary refill <2 sec. 2+ dp equal bilaterally. No pedal edema. Neuro: Alert and oriented x3. Skin: Clean, dry, and intact. No rashes, bruises, or erythema. Results & Data Results & Data ([facility]) Vital Signs (Past 12 Hours) Vital Signs Temp Pulse Pulse Resp BP BP Pulse Ox 01/26/22 07:40 37.4 C 76 22 115/65 99 01/26/22 05:23 01/26/22 05:07 37.4 C 55 L 16 125/65 100 01/26/22 05:06 01/26/22 04:36 59 L 18 111/61 100 01/26/22 03:32 55 L 16 105/50 L 97 01/26/22 02:00 73 20 115/59 L 97 01/26/22 00:55 60 20 128/72 97 01/25/22 22:55 99 01/25/22 21:30 36.7 C 67 18 99 O2 Del Method 01/26/22 07:40 Room Air 01/26/22 05:23 Room Air 01/26/22 05:07 Room Air 01/26/22 05:06 Room Air 01/26/22 04:36 Room Air 01/26/22 03:32 Room Air 01/26/22 02:00 Room Air 01/26/22 00:55 01/25/22 22:55 Room Air 01/25/22 21:30 Resident Activity Tracking Resident Involvement: Resident Care Provided Care Provided: Adult Hospital Medicine
--- NOTE | 2022-01-26 12:24 | Neurology Consultation ---
Date of Consultation January 26, 2022 Assessment & Plan (1) Seizures: Plan 36-year-old male with a history of cyclic vomiting syndrome beginning in his early 20s, presenting with several seizures recently. He did bite the left half of his tongue and does have a mildly elevated prolactin level. Patient was loaded with IV Keppra. He was started on Keppra 500 mg p.o. twice daily, may continue with this medication. EEG to be completed this morning. I would also like this patient to have a gadolinium enhanced brain MRI, seizure protocol. I will place the order in [employer] Patient will need to remain seizure-free for 6 months before he can resume operating a motor vehicle. A report was apparently already filed during his initial assessment in the emergency department. If routine bedside EEG is negative for epileptiform abnormalities, would consider obtaining an outpatient ambulatory EEG. He will likely need additional outpatient neurology follow-up after this hospitalization. History of Present Illness Reason for Consultation: seizure Requesting Physician: Yessy Flood DO Attending Physician: Vish Cardona DO History of Present Illness The patient is a 36-year-old male who had presented to the emergency department yesterday for further assessment of a seizure-like episode. He has a history of cyclic vomiting syndrome that was diagnosed in his early 20s. Episodes have been characterized by hot flashes, diaphoresis, nausea, emesis. He had presented to the emergency department yesterday after further assessment of a syncopal event that occurred in the context of 1 of these episodes. His eyes apparently rolled back and he started to violently shake, event witnessed by his mother. He apparently has not had emesis associated with these episodes in the past few years. He smokes marijuana regularly and was consuming red wine before the recent event. He had also taken an antihistamine, diphenhydramine. I had discussed his case with the emergency department attending physician, Dr. Irene yesterday. At that point in time, plan was for discharge from the emergency department with instructions for outpatient follow-up in my office including likely MRI and EEG. He was instructed not to drive and a report was filed. The patient apparently had another similar episode and he was brought back to the hospital for further evaluation and management. He is relatively amnestic for these recent events. He did bite the left half of his tongue. He recalls being treated with a seizure medicine several years ago. He does not follow regularly with a neurologist. A CT of the head completed yesterday was negative for hemorrhage or acute process. I did review the images as well as the radiologist's interpretation of this test. This morning, the patient appears mildly uncomfortable, he is diaphoretic and somewhat nauseous, no emesis. He denies headache or focal weakness at this time. He is aware that he bit his tongue. No other obvious injuries. Additional details as above. Allergies Allergy/AdvReac Type Severity Reaction Status Date / Time Sulfa (Sulfonamide Allergy Unknown "SULFA = Verified 01/26/22 00:38 Antibiotics) UNSURE OF REACTION" Home Medications Medication Instructions Recorded Confirmed Type K-99 Mix A Pro 1 dose PO DAILY 01/26/22 01/26/22 History Selicore Binder 1 dose PO DAILY 01/26/22 01/26/22 History cetirizine 10 mg tablet (Zyrtec) 10 mg PO DAILY PRN Congestion 01/26/22 01/26/22 History cod liver oil 1 cap PO DAILY 01/26/22 01/26/22 History coenzyme Q10 100 mg capsule 100 mg PO DAILY 01/26/22 01/26/22 History (CoQ-10) famotidine 20 mg tablet (Pepcid) 20 mg PO DAILY 01/26/22 01/26/22 History magnesium oxide 500 mg tablet 500 mg PO DAILY 01/26/22 01/26/22 History Patient History Medical History ADD (attention deficit disorder) Anxiety Cyclical vomiting Depression Hypokalemia OCD (obsessive compulsive disorder) Overdose (05/28/14) Seizures Suicidal ideation Surgical History No significant past surgical history Family History Other No significant family history Social History Smoking Status: Former smoker Tobacco Type: Cigarettes Age Started Using Tobacco: 17; Age Quit Using Tobacco: 33; packs per day: 1; Years Smoked: 16; Second Hand Exposure: No; Hx Alcohol Use: Yes Alcohol type: wine Hx Substance Use: Yes Last Used Substance: Days (ago) Preferred Language: Setswana Communication Ability: Effective Visual Impairment: Limited Hearing Ability: Normal Prepared Foods Supervisor Required: No Beliefs That Will Affect Care: None marital status: Single Current Living Situation: Family current occupational status: employed Other Information That Helps Us Care for You: No Feels Safe at Home: Yes Safety Concerns: Feels Safe At This Time Childhood Exposure to Second-Hand Smoke: Yes Diet Comment: organic caffeine: Yes Dental Care, Regularly: Yes Physical Activity Frequency: 5-6 Times per Week Physical Activity Frequency Comment: run, cross country skiing weights and cardio Seatbelt Use: always Sunscreen Use: No Assistive Devices: None Review of Systems Constitutional: as per Subjective / HPI and + sweats; no fever and no chills Eyes: no blind spots and no diplopia Ear, Nose, Mouth, Throat: no ear pain and no hearing loss Respiratory: no cough and no dyspnea Cardiovascular: no chest pain and no palpitations Gastrointestinal: as per Subjective / HPI and + nausea Genitourinary: no urinary incontinence Musculoskeletal: no back pain, no neck pain and no myalgia Integumentary: no rash and no lesions Neurologic: as per Subjective / HPI Psychiatric: + anxiety Hematologic / Lymphatic: no easy bleeding and no easy bruising Exam (Neuro) Constitutional: well developed, well nourished and + diaphoretic Eyes: normal visual caba by confrontation, PERRL, normal accommodation and EOM intact bilaterally; no fundoscopic abnormality, no nystagmus and no papilledema Cardiovascular: Vessels: normal carotid upstroke; no carotid bruit Neurologic: Oriented to:: Person, Place and Time Memory: Short Term Intact and Remote Intact Attention: Span Intact and Concentration Intact Language: Naming Objects and Repeating Phrases Speech Fluency: negative Dysarthria Speech Aphasia: negative Aphasia Fund of Knowledge: Current Events, Past History and Vocabulary Cranial Nerves: Normal II (Visual caba full to confrontation, visual acuity normal), III, IV, (Pupils equal round reactive to light and accommodation, eye movements normal), V (Facial sensation intact), VII (There is no facial droop or weakness), VIII (Hearing intact), IX, X (Palate elevates to midline), XI (Shoulder shrug intact) and XII (Tongue protrudes to midline) Motor Strength: Normal Lower Extremities and Normal Upper Extremities; negative Pronator Drift Motor Tone: Normal Lower Extremities and Normal Upper Extremities Muscle Bulk/Involuntary Movements: No Involuntary Movements; negative Muscle Atrophy Sensation: Light Touch Intact, Pain/Temperature Intact, Vibration Intact and Proprioception Intact Coordination: Normal; negative Limited Balance, Dysdiadochokinesia, Finger-Nose Abnormal or Heel-Pearson Abnormal Deep Tendon Reflexes: Rt Triceps: 2+, Lt Triceps: 2+, Rt Biceps: 2+, Lt Biceps: 2+, Rt Brachioradialis: 2+, Lt Brachioradialis: 2+, Rt Patellar: 2+, Lt Patellar: 2+, Rt Ankle: 2+ and Lt Ankle: 2+ Special Tests: negative Babinski Present Gait: Normal Station and Gait Results & Data ([facility]) Vital Signs (Past 12 Hours) Vital Signs Temp Pulse Pulse Resp BP BP Pulse Ox 01/26/22 11:16 37.4 C 62 20 124/63 97 01/26/22 07:40 37.4 C 76 22 115/65 99 01/26/22 05:23 01/26/22 05:07 37.4 C 55 L 16 125/65 100 01/26/22 05:06 01/26/22 04:36 59 L 18 111/61 100 01/26/22 03:32 55 L 16 105/50 L 97 01/26/22 02:00 73 20 115/59 L 97 01/26/22 00:55 60 20 128/72 97 O2 Del Method 01/26/22 11:16 Room Air 01/26/22 07:40 Room Air 01/26/22 05:23 Room Air 01/26/22 05:07 Room Air 01/26/22 05:06 Room Air 01/26/22 04:36 Room Air 01/26/22 03:32 Room Air 01/26/22 02:00 Room Air 01/26/22 00:55 Laboratory Results WBC 19.36, hemoglobin 14.2, hematocrit 40.2, MCV 92.6, platelet count 249, sodium 135, potassium 3.7, BUN 21, creatinine 0.91, glucose 128, magnesium 1.7, AST 32, ALT 21, prolactin 31.41, urine toxicology screen positive for marijuana, SARS-CoV-[address] Findings CT of the head is as described in the HPI, I reviewed the images as well as the radiologist interpretation of this test. An electrocardiogram reveals sinus bradycardia, 53 bpm. Coding Level of Care Code 77798 Initial Inpt Care Lvl 3 Diagnoses Seizures R56.9
--- NOTE | 2022-01-26 13:12 | Electroencephalogram ---
EEG Procedure Note Date of Service January 26, 2022 Start / End Times Start Time: 12:34 PM End Time: 12:54 PM Referring Physician Yessy Flood History Seizure-like episodes, cyclic vomiting syndrome Home Medication List Medication Instructions Recorded Confirmed Type K-99 Mix A Pro 1 dose PO DAILY 01/26/22 01/26/22 History Selicore Binder 1 dose PO DAILY 01/26/22 01/26/22 History cetirizine 10 mg tablet (Zyrtec) 10 mg PO DAILY PRN Congestion 01/26/22 01/26/22 History cod liver oil 1 cap PO DAILY 01/26/22 01/26/22 History coenzyme Q10 100 mg capsule 100 mg PO DAILY 01/26/22 01/26/22 History (CoQ-10) famotidine 20 mg tablet (Pepcid) 20 mg PO DAILY 01/26/22 01/26/22 History magnesium oxide 500 mg tablet 500 mg PO DAILY 01/26/22 01/26/22 History Inpatient Medication List Al Hydrox/Mg Hydrox/Simethicone (Aluminum/Magnesium Susp 30 Ml Udc) 30 ml PO Q6H PRN PRN Reason: Dyspepsia Stop: 02/25/22 05:22 Last Admin: 01/26/22 07:50 Dose: 30 ml Documented By: GODWIN Famotidine (Famotidine 20 Mg Tab) 20 mg PO DAILY [facility] Stop: 02/25/22 08:59 Last Admin: 01/26/22 07:47 Dose: 20 mg Documented By: GODWIN Folic Acid (Folic Acid 1 Mg Tab) 1 mg PO QAM [facility] Stop: 02/25/22 08:59 Last Admin: 01/26/22 07:47 Dose: 1 mg Documented By: GODWIN Lactated Ringer's (Lr) 1,000 mls @ 125 mls/hr IV .Q8H [facility] Stop: 02/25/22 05:22 Last Admin: 01/26/22 06:08 Dose: 125 mls/hr Documented By: SASHA Levetiracetam (Levetiracetam 500 Mg Tab) 500 mg PO BID [facility] Stop: 02/25/22 08:59 Last Admin: 01/26/22 07:47 Dose: 500 mg Documented By: GODWIN Magnesium Oxide (Magnesium Oxide 400 Mg Tab) 400 mg PO DAILY [facility] Stop: 02/25/22 08:59 Last Admin: 01/26/22 07:47 Dose: 400 mg Documented By: GODWIN Thiamine HCl (Thiamine Hcl 100 Mg Tab) 100 mg PO QAM [facility] Stop: 02/25/22 08:59 Last Admin: 01/26/22 07:47 Dose: 100 mg Documented By: GODWIN Discontinued Medications Diphenhydramine HCl (Diphenhydramine 50 Mg/Ml Vial) 25 mg IV NOW ONE Stop: 01/26/22 05:24 Last Admin: 01/26/22 06:08 Dose: 25 mg Documented By: SASHA Levetiracetam 2,000 mg/ Sodium (Chloride) 270 mls @ 999 mls/hr IV NOW STA Stop: 01/26/22 02:14 Last Admin: 01/26/22 02:09 Dose: Not Given Documented By: AMBROSIO Levetiracetam 1,000 mg/ Sodium (Chloride) 110 mls @ 999 mls/hr IV NOW STA Stop: 01/26/22 02:12 Last Infusion: 01/26/22 02:37 Dose: 0 mls/hr Documented By: Admin: 01/26/22 02:22 Dose: 999 mls/hr Documented By: AMBROSIO Lorazepam (Lorazepam 1 Mg Tab) 1 mg PO ONE PRN; Protocol PRN Reason: EtoH Withdrawal AWSS 6,7,8,9,10 Last Admin: 01/26/22 10:58 Dose: 1 mg Documented By: GODWIN Ondansetron HCl (Ondansetron Inj 2 Mg/Ml 2 Ml Vial) 4 mg IV NOW STA Stop: 01/26/22 04:25 Last Admin: 01/26/22 04:32 Dose: 4 mg Documented By: AN Description This is a 21 electrode EEG with a single channel dedicated to limited EKG. The electrodes were placed in accordance with the International 10-20 system. There is a posterior dominant rhythm of 10 Hz which is symmetrically distributed and attenuates with eye opening. There is a normal anterior to posterior organi zation. Photic stimulation is unremarkable. Hyperventilation is not performed. There is a symmetric frontal beta rhythm. There is admixed generalized polymorphic theta activity. There are a few vertex waves and sleep spindles. There is no focal slowing. There are no epileptiform abnormalities. Interpretation Normal-appearing awake/sleepy EEG. A normal EEG does not completely exclude a diagnosis of epilepsy. Further clinical correlation may be needed.
[2022-01-26 13:31] LABS: Lyme Ab IgG w/WB Rflx Negative (Negative); Lyme Ab IgM w/WB Rflx Negative (Negative)
--- NOTE | 2022-01-26 15:54 | Electrocardiogram Report ---
Test Reason : Blood Pressure : / mmHG Vent. Rate : 055 BPM Atrial Rate : 055 BPM P-R Int : 142 ms QRS Dur : 092 ms QT Int : 430 ms P-R-T Axes : 042 032 055 degrees QTc Int : 411 ms Sinus bradycardia with sinus arrhythmia Otherwise normal ECG When compared with ECG of 25-JAN-2022 14:05, No significant change was found Confirmed by Dale Sotelo ([id number]) on 01/26/2022 3:54:23 PM Referred By: REFERRED SELF Confirmed By:Mark Sotelo
[2022-01-26] MEDS ORDERED: Ativan IV Alcohol Withdrawal--Active Protocol IV PRN (16:33)
[2022-01-26] MEDS ORDERED: LORazepam 3 MG in SYRINGE 0 ML IV PRN (16:33)
[2022-01-26] MEDS ORDERED: LORazepam 1 MG in SYRINGE 0 ML IV PRN (16:33)
--- NOTE | 2022-01-26 19:49 | Billing Data ---
Date of Service January 26, 2022 Coding Level of Care Code INT OBSERVATION CARE 50M LVL 2
[2022-01-26] MEDS ORDERED: GADOBUTROL 65ML VIAL IV ONE (21:20)
[2022-01-27] MEDS: LACTATED RINGER'S 1,000 ML IV SCH (05:41)
[2022-01-27 05:56] LABS: Hematocrit (blood only) 39.9 % (40.1-51.0); Hemoglobin 13.9 g/dl (14.0-18.0); Mean Corpuscular Hemoglobin 32.4 pg (25.0-34.0); Mean Corpuscular Hgb Conc 34.8 g/dL (32.0-36.0); Mean Platelet Volume 10.1 fL (9.4-12.4); Platelet Count 233 K/uL (130-400); RDW Coefficient of Variation 11.9 % (11.5-14.5); RDW Standard Deviation 40.5 fL (36.4-46.3); Red Blood Count 4.29 M/uL (4.63-6.08); White Blood Count 14.77 K/ul (4.8-10.8)
[2022-01-27 06:21] LABS: Albumin Globulin Ratio 2.1 (0.9-2); Albumin Level 4.5 gm/dl (3.4-5.0); BUN Creatinine Ratio 18.6 (10-20); Bilirubin,Total 1.2 mg/dl (0.2-1.0); Calcium 9.2 mg/dl (8.5-10.1); Creatinine Clr Calc Pharmacy 108.2 ml/min; Est GFR (African American) 130.2 ml/min; Est GFR (Non-African American) 112.3 ml/min; Globulin 2.1 gm/dl (2.5-4.0); Potassium 3.8 mmol/L (3.5-5.1); Total Protein 6.6 gm/dl (6.0-8.3)
--- NOTE | 2022-01-27 08:10 | Magnetic Resonance Report ---
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 There is no restricted diffusio n. The midline structures appear unremarkable. Mild enlargement of the adenoid tonsils. The imaged up per cervical spine is unremarkable. The study is mildly motion degraded. There is no acute intracranial hemorrhage, midline shift, abnormal extra-axial collection, hydrocepha joe or intracranial mass. Numerous foci of susceptibility artifact noted within the scalp. Cerebral v enous sinuses and major arterial flow voids appear patent. The skull, and orbits are unremarkable. Th e mastoid air cells are clear. There is mild mucosal thickening of the paranasal sinuses and nasal tu rbinates. There is mild cortical thickening with homogeneously increased T2 and FLAIR signal involving the medi al right temporal lobe and hippocampus. No definite underlying mass, or canseco matter heterotopia ident ified. No atrophy to suggest mesial temporal sclerosis. No abnormal enhancement. IMPRESSION: 1. No acute intracranial hemorrhage, acute or subacute territorial infarct. 2. There is cortical thickening with increased T2/FLAIR signal involving the medial right temporal lo be and hippocampus. Based on the patient history, this is suggestive of an acute seizure focus. [facility] is recommended to exclude cortical dysplasia. 3. No abnormal enhancement. ACT 112: Negative or not required by law. The above report was generated using voice recognition software. It may contain grammatical, syntax o r spelling errors. Electronically signed by: Iron Enriquez M.D. 01/27/2022 8:08 AM
[2022-01-27 08:21] LABS: Estimated Average Glucose 100 mg/dl; Hemoglobin A1C 5.1 % (4.5-5.6)
[2022-01-27] MEDS: levETIRAcetam 500 MG TAB PO SCH (09:40)
[2022-01-27] MEDS: FOLIC ACID 1 MG TAB PO SCH (09:40)
[2022-01-27] MEDS: THIAMINE HCL 100 MG TAB PO SCH (09:40)
[2022-01-27] MEDS: FAMOTIDINE 20 MG TAB PO SCH (09:40)
[2022-01-27] MEDS: MAGNESIUM OXIDE 400 MG TAB PO SCH (09:40)
--- NOTE | 2022-01-27 11:30 | Neurology Progress Note ---
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 History of chronic intermittent autonomic symptoms, autonomic seizures? Recent brain MRI does reveal a seizure focus within the right mesial temporal lobe and hippocampal region. Seizure semiology in his case may not be highly specific for temporal lobe epilepsy, however. No dj vu, fear, gustatory, or olfactory symptoms. No reported automatisms. History may suggest focal aware as well as more recent tonic-clonic seizures. Has prominent gastrointestinal/autonomic symptoms, diaphoresis, nausea, episodes of flushing, more recent generalized tonic-clonic seizure, left-sided tongue bite. Increase dosage of Keppra to 750 mg twice daily. Patient will need to remain seizure-free for 6 months before his driving privileges can be reinstated. Department of Transportation was already contacted. I may consider obtaining an ambulatory EEG as well. Follow-up with me or an CRISTIN in outpatient neurology clinic in 2 to 3 weeks. Admission and Anticipated Discharge Date Admission Date: January 26, 2022 Subjective Follow-up for seizure The patient has not had any further convulsive episodes. He denies headache or focal weakness. He continues to have some diaphoresis and low-grade nausea. An EEG completed yesterday was fairly normal-appearing. However, upon further review, there was some focal right frontotemporal slowing. A brain MRI was completed as well, with and without gadolinium enhancement, seizure protocol. The study does reveal cortical thickening and increased T2/flair signal involving the medial right temporal lobe and hippocampus potentially consistent with a seizure focus. Follow-up MRI in 3 months recommended. I did independently review these images and was able to identify these findings. Review of Systems Constitutional: no fever Eyes: no blind spots and no diplopia Gastrointestinal: + nausea Neurologic: no gait abnormality, no localized weakness, no loss of sensation and no headache(s) Results & Data ([facility]) Vital Signs (Past 12 Hours) Vital Signs Temp Pulse Pulse Resp BP Pulse Ox O2 Del Method 01/27/22 10:55 36.8 C 53 L 16 117/68 99 Room Air 01/27/22 08:00 86 01/27/22 07:22 37.0 C 45 L 18 116/62 99 Room Air 01/27/22 03:21 37.5 C 71 18 125/70 97 Laboratory Results WBC 14.77, hemoglobin 13.9, hematocrit 39.9, MCV 93.0, platelet count 233, sodium 137, potassium 3.8, BUN 16, creatinine 0.86, glucose 116, hemoglobin A1c 5.1, calcium 9.2, AST 78, ALT 26, triglycerides 84, cholesterol 176, LDL 101, VLDL 17, HDL 58, TSH 1.587, Lyme screen negative, SARS-CoV-2 negative. Diagnostic Findings MRI and EEG are as described above. Exam (Neuro) Neurologic: Oriented to:: Person, Place and Time Attention: Span Intact and Concentration Intact Speech Fluency: negative Dysarthria or Dysfluency Fund of Knowledge: Past History and Vocabulary Cranial Nerves: Normal II, III, IV, and VII Motor Strength: Normal Lower Extremities and Normal Upper Extremities Muscle Bulk/Involuntary Movements: No Involuntary Movements Coding Level of Care Code 92992 Subseq Hosp Care Lvl 2 Diagnoses Temporal lobe seizure G40.109
[2022-01-27 14:11] LABS: HBSAG NON-REACTIVE (NON-REACTIVE); Hepatitis B Core Antibody Total NON-REACTIVE (NON-REACTIVE)
[2022-01-27 19:31] LABS: Marijuana Quant, GCMS Urine >5000 ng/mL (<5)
[2022-01-27] MEDS ORDERED: levETIRAcetam 250 MG TAB PO SCH (21:00)
[2022-01-31 06:27] LABS: T4 Free by Equ Dialysis 1.8 ng/dL (0.9-2.2)
--- NOTE | 2022-02-02 14:01 | Discharge Summary ---
Date of Service February 02, 2022 Admission HPI Per Admitting Provider Patient is a 36 yo male with PMHx of anxiety, ADD, OCD, cyclic vomiting syndrome, and seizure who presented s/p seizure. Patient was seen in the ER yesterday afternoon for possible seizure. Patient was discharged home after a normal head CT, discussion with neurology, labs, and observation. After returning home, patient had another witnessed seizure episode by family members. Unfortunately there is no family at bedside at this time and history is limited by patient. Patient does have amnesia and does not recall being in the ER yesterday. He states that the last thing he remembers was waking up yesterday morning, going downstairs with his family, and reporting a hot flash / sweats. Patient states that he has had these abnormal hot flash episodes for about 8 years; episodes are described as periods of hot flash, "profuse sweating," nausea, confusion, and diffuse body aches/body burning. The episodes were occurring multiple times weekly but more recently have decreased in frequency, occurring about once every 2 weeks. Patient states that these hot flashes have been worked up many times with no specific diagnosis. Patient also reports a hx of seizures that started in high school but he has not had one "in a long time" and is not on an anti-epileptic medication. Previously had license taken away due to the seizure hx but has had his license back for some time. During the interview, patient did become confused, particularly about his age, and at one point said "well I'm 33 now..." When asked for clarification based on his documented age in the chart being 36, patient stated "no, that's wrong, I'm 33. Or maybe 34. No, 33. Wait, I was born in 1985." Patient did become frustrated by this confusion and memory loss. Patient states that he is currently completing his degree at [employer] in modulR. 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 Patient does admit to recent increased stress, especially at work during this football/busy season. He has a hx of anxiety but apart from being more stressed with work he does not feel that his mood has been more anxious. Patient is a regular alcohol user and drinks 3-5 glasses of red wine per night; denies beer or liquor consumption. He does not feel that he has had withdrawal in the past. He uses + medical marijuana, both smokes and uses capsules, multiple times daily; reports higher THC content with the medical marijuana which he buys from a distributor. Patient denies synthetic marijuana use. He denies other drug use. Patient reports mild CLANCY and nausea at this time. Denies CP, SOB, abd pain, vomiting, numbness, or tingling. Admission Exam Per Admitting Provider GENERAL: Laying in bed in no acute distress. Vital signs reviewed. EYES: PERRL. EOMI. Anicteric sclerae. HENT: Moist mucous membranes. RESPIRATORY: Clear to auscultation bilaterally. No wheezing, rales, or rhonchi. CARDIOVASCULAR: Regular rate and rhythm. No murmurs. No JVD. ABDOMEN: Soft, non-tender and non-distended. Normal bowel sounds. EXTREMITIES: No edema. Non-tender. 2+ pedal pulses. SKIN: Warm, dry. NEUROLOGIC: Normal speech. No focal neurological deficits. 5/5 strength in BUE and BLE. PSYCHIATRIC: Cooperative. Appropriate mood and affect. Principal Diagnosis Right temporal lobe seizure Discharge Exam General: Anxious-appearing, but otherwise alert, interactive, and in mild acute distress. HEENT: Normocephalic, atraumatic. EOM intact. Good conjugate gaze. Nares patent. Moist mucosal membranes. Neck: Supple. No lymphadenopathy. Normal ROM. CV: Bradycardic. Regular rhythm. No murmurs gallops or rubs. Respiratory: Normal respiratory effort. Lungs clear to auscultation bilaterally. No crackles, rhonchi, or wheezes. Abdomen: Soft, nondistended abdomen. No bruits heard on auscultation. No tenderness to deep palpation. No guarding or rebound. Extremities: Capillary refill <2 sec. 2+ dp equal bilaterally. No pedal edema. Neuro: Alert and oriented x3. Skin: Clean, dry, and intact. No rashes, bruises, or erythema. Discharge Data Allergies Allergy/AdvReac Type Severity Reaction Status Date / Time Sulfa (Sulfonamide Allergy Unknown "SULFA = Verified 01/26/22 00:38 Antibiotics) UNSURE OF REACTION" Consultations 01/26/22 02:11 ED Decision to Admit Stat 01/26/22 05:23 Consult Neurology Routine Ordered Studies 01/26/22 12:29 MR brain seizure wo/w con Routine Hospital Course (1) Seizure-like activity: Patient is a 36 yo male with PMHx of anxiety, ADD, OCD, cyclic vomiting syndrome, and seizure admitted on 01/26/22 for seizure. Seizure - Patient with 2 reported seizures in the past 24 hours - Will admit to [facility] w/ tele - Head CT 01/25: No acute intracranial abnormality noting a motion compromised examination. - Mild leukocytosis with WBC 19.36, likely reactive - Lactate wnl at 1.1 and 1.3 - Prolactin elevated at 31.4 - UDS positive for marijuana, otherwise negative. Possible link between symptoms and marijuana use. - Alcohol level negative - Keppra 1g IV given to patient in ER * Keppra 500mg BID. * Ativan 2mg IV to be used prn for seizure activity * Seizure precautions * EEG ordered * Neurology consulted: increased Keppra to 750 mg bid, recommended outpatient follow-up. Alcohol use - Patient reports 3-5 glasses of red wine nightly - No reported hx of alcohol withdrawal * AWSS at risk protocol. Anxiety - No home medication for anxiety. Started on Fluvoxamine 50 mg qhs. Recommended PCP follow-up to continue. - Patient does feel more stressed recently but denies recent changes in mood. This is contradicted by his immediate family. Plan to suggest counseling in the future. Plan 20 Total Time Total Time Spent Total Time Spent (In Minutes): 20 Discharge Plan Discharge Items Patient Disposition: Home - Self-Care Reason For Visit: SEIZURE Non-emergency contact: Primary Care Provider Call non-emergency contact if: you have any medication questions Follow-up/Referrals: Logan Hernandez MD [Physician] - Logan Nails DO [Primary Care Provider] - 02/03/22 9:00 am Diet: Regular Addtl Attending Provider Instructions: Dear Rohith, You are brought to the hospital by family because you appear to be having a seizure. You were admitted to the hospital and were treated with medications to help prevent more seizures. When you stabilize, we then consulted neurology. At their recommendation, you received an MRI of the brain, and an electro encephalogram or an EEG, which measures brainwave activity. These tests showed some evidence of seizure activity located in the temporal lobe of your brain on the right side. It is been recommended that you follow-up with the neurologist on an outpatient basis but we feel that you are now ready to be safely discharged home today. * We are sending a new medication called Keppra, or levetiracetam, to your pharmacy. Please take Keppra 750 mg twice daily. * We have requested an appointment with Dr. Logan Hernandez of [facility]. If you do not hear from the office in the next 2-3 business days, you may call them at [phone]. * We have also requested an appointment with Dr. Logan Nails, your primary care physician. If you do not hear from the office in the next 2-3 business days, you may call them at [phone]. Please take your medications as instructed. It is very important that you continue to take them regularly and consistently, as this will help lower your risk of seizure the longer you take them. If you have any questions or concerns about your medications, or you feel that they are not working as well as they should, contact your neurologist. It has been a pleasure taking care of you here at [facility]. If you have any questions about your care or stay here, you may contact the hospital at [phone]. Pending Studies at Discharge: Yes Studies:: Hep Bs antigen, Hep Bc total Ab, Hep C Ab, HIV Ag and Ab Stand-Alone Forms: My [facility], Smoking Cessation Medications and DC Order Prescriptions: New levetiracetam [Keppra] 250 mg Tablet 750 mg PO BID 30 Days Qty: 180 0RF escitalopram oxalate [Lexapro] 10 mg tablet 10 mg PO DAILY 30 Days Qty: 30 0RF Continued cetirizine [Zyrtec] 10 mg Tablet 10 mg PO DAILY PRN (Reason: Congestion) cod liver oil Capsule 1 cap PO DAILY famotidine [Pepcid] 20 mg Tablet 20 mg PO DAILY magnesium oxide 500 mg Tablet 500 mg PO DAILY coenzyme Q10 [CoQ-10] 100 mg Capsule 100 mg PO DAILY K-99 Mix A Pro 1 dose PO DAILY Selicore Binder 1 dose PO DAILY Discharge Orders: Discharge Order (Routine); Ordered 01/27/22 Ordered By: Juany Barber Admission Data Admit Date/Time: 01/26/22 03:07 Attending Provider: Vish Cardona Admit Provider: Yessy Flood Primary Care Provider: Logan Nails Other Providers: Logan Hernandez Other Interventions: Discharge Summary Assessment (RN) Last Done: 01/27/22 14:20 Resident Activity Tracking Resident Involvement: Resident Care Provided Care Provided: Adult [facility]
== END 2022-01-27 14:50 | disposition home or self-care (01) ==
LOC: ED 21:24 → 2S 21:24 → SUATTDRO 01-26 03:07 → 2S 01-26 04:36
DX: R11.15 Cyclical vomiting syndrome unrelated to migraine; Z88.2 Allergy status to sulfonamides; F17.210 Nicotine dependence, cigarettes, uncomplicated; G40.109 Localization-related (focal) (partial) symptomatic epilepsy and epileptic syndromes with simple partial seizures, not intractable, without status epilepticus; Z87.891 Personal history of nicotine dependence; Z79.899 Other long term (current) drug therapy

== ENCOUNTER 2022-07-13 14:23 | Inpatient (IN) ==
[2022-07-13] MEDS ORDERED: oxyCODONE HCL IR 5 MG TAB (IMMEDIATE RELEASE) PO STA (14:44)
--- NOTE | 2022-07-13 14:45 | Emergency Department Note ---
History of Present Illness General Chief complaint: Wrist Pain Stated complaint: BROKE L WRIST Time Seen by Provider: 07/13/22 14:40 History of Present Illness Maximum Pain Intensity: 9 This is a 36-year-old male that presents to the emergency department via private vehicle with complaints of "left wrist injury". He is right-hand dominant. Patient notes yesterday around 5 PM he was running down the driveway when he notes that he tripped, fell with his arms outstretched injuring his left wrist. He notes left wrist pain since that time. He denies striking the head or loss of consciousness. No other areas of pain. No headache, neck pain, chest pain, back pain or abdominal pain. He points to the left wrist at the location of discomfort that he currently rates as a 9/10. No numbness or tingling. Home Medications Medication Instructions Recorded Confirmed Type K-99 Mix A Pro 1 dose PO DAILY 01/26/22 07/13/22 History Selicore Binder 1 dose PO DAILY 01/26/22 07/13/22 History cetirizine 10 mg tablet (Zyrtec) 10 mg PO DAILY PRN Congestion 01/26/22 07/13/22 History cod liver oil 1 cap PO DAILY 01/26/22 07/13/22 History coenzyme Q10 100 mg capsule 200 mg PO DAILY 01/26/22 07/13/22 History (CoQ-10) magnesium oxide 500 mg tablet 500 mg PO DAILY 01/26/22 07/13/22 History betaine-minerals capsule 1 cap PO DAILY 02/03/22 07/13/22 History levetiracetam 1,000 mg tablet 1,000 mg PO BID #60 tabs 02/09/22 07/13/22 Rx (Keppra) levocarnitine 500 mg capsule 1,000 mg PO DAILY 07/13/22 07/13/22 History (L-Carnitine) Allergies Allergy/AdvReac Type Severity Reaction Status Date / Time Sulfa (Sulfonamide Allergy Unknown "SULFA = Verified 07/13/22 16:49 Antibiotics) UNSURE OF REACTION" Past Med/Surg History Medical History ADD (attention deficit disorder) Anxiety Cyclical vomiting Depression OCD (obsessive compulsive disorder) Overdose (05/28/14) Seizure-like activity Seizures Seizures Suicidal ideation Surgical History No significant past surgical history Family History (Updated 07/13/22 @ 17:40 by Arsenio Costello PA-C) Father Mother Skin cancer Other No significant family history Denies family history of Ovarian cancer Prostate cancer Myocardial infarction Breast cancer Lung cancer Colorectal cancer Hypertension Social History Smoking Status: Former smoker Tobacco Type: Cigarettes Age Started Using Tobacco: 17; Age Quit Using Tobacco: 33; packs per day: 1; Second Hand Exposure: No; Hx Alcohol Use: Yes Alcohol type: wine Hx Substance Use: Yes Prescribed Medications: Marijuana Last Used Substance: Days (ago) Preferred Language: Sami Communication Ability: Effective Visual Impairment: Limited Hearing Ability: Normal Eligibility Analyst Required: No Beliefs That Will Affect Care: None marital status: Single Current Living Situation: Family current occupational status: employed 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 Feels Safe at Home: Yes Childhood Exposure to Second-Hand Smoke: Yes Diet Comment: organic caffeine: Yes Dental Care, Regularly: Yes Physical Activity Frequency: 5-6 Times per Week Physical Activity Frequency Comment: run, cross country skiing weights and cardio Seatbelt Use: always Sunscreen Use: No Assistive Devices: None Review of Systems A total of 10 systems reviewed and were otherwise negative Physical Exam Vital Signs Vital Signs - 24 hr 07/13/22 14:38 07/13/22 15:07 Temperature 36.8 C Temperature Source Temporal Artery Scan Pulse Rate 74 Pulse Rate [Left Finger] 68 Pulse Rhythm [Left Finger] Regular Pulse Strength [Left Finger] Normal Respiratory Rate 18 20 Respiratory Effort / Characteristics Non-Labored Spontaneous Respiratory Depth Normal Respiratory Pattern Regular Blood Pressure 133/62 Blood Pressure [Right Arm] 132/70 Blood Pressure Mean 85 Blood Pressure Mean [Right Arm] 90 Blood Pressure Position [Right Arm] Sitting Pulse Oximetry 97 98 Oxygen Delivery Method Room Air Room Air Sepsis Recent Fever Within 48 Hours No Sepsis New/Unexplained Change in Mental Status No Sepsis Action Taken by Nursing No Action Required VITAL SIGNS - Vital signs and triage nursing notes were reviewed. Stable and afebrile. GENERAL -36-year-old male appearing his stated age who is in no acute distress. Communicates well with provider and answers questions appropriately. SKIN - Without rashes. There are superficial abrasions present overlying the palmar aspect of the proximal hands bilaterally. No repairable lacerations. No evidence of infection. There is circumferential edema present overlying the left wrist region. No break in the integument overlying the left wrist. No evidence of open fracture. HEAD - NC/AT. EYES - Sclera anicteric. No hyphema. EARS - No deformities of external structures noted on gross examination bilaterally. No blood from the ear canals. NOSE - Midline and without cyanosis. No epistaxis or purulent drainage noted. MOUTH/OROPHARYNX - Without perioral cyanosis. Tongue protrudes midline. NECK - No C-spine tenderness. No nuchal rigidity. LUNGS -clear to auscultation. CARDIAC - RRR ABDOMEN - Abdominal contour normal without pulsations or visible masses. Normoactive bowel sounds and no tenderness. EXTREMITIES - No clubbing or peripheral cyanosis. Point tenderness overlying the left wrist and distal left forearm. No other tenderness of the upper extremities. No other signs of trauma. Patient is warm and well-perfused and left upper extremity without deficit. Cap refill within normal limits. Left radial pulse intact. +5/5 strength noted in UE/LE bilaterally. NEUROLOGIC -no deficits. Neurovascularly intact throughout the extremities. PSYCH - A&O, and cooperates fully with examiner. Pt is very pleasant and interacts well with examiner. Course Administered Medications Lactated Ringer's (Lr) 1,000 mls @ 100 mls/hr IV .Q10H VIKTOR Stop: 07/14/22 18:29 Last Admin: 07/13/22 22:19 Dose: 100 mls/hr Documented By: LEI Discontinued Medications Levetiracetam 1,000 mg/ Sodium (Chloride) 110 mls @ 440 mls/hr IV NOW STA Stop: 07/13/22 19:45 Last Infusion: 07/13/22 20:29 Dose: 0 mls/hr Documented By: Admin: 07/13/22 19:51 Dose: 440 mls/hr Documented By: LEI Lactated Ringer's (Lr) 1,000 mls @ 999 mls/hr IV .Q1H1M ONE Stop: 07/13/22 20:58 Last Infusion: 07/13/22 21:27 Dose: 0 mls/hr Documented By: Admin: 07/13/22 20:09 Dose: 999 mls/hr Documented By: LEI Lorazepam (Lorazepam 2 Mg/1 Ml Vial) 1 mg IV NOW STA Stop: 07/13/22 18:06 Last Admin: 07/13/22 18:34 Dose: 1 mg Documented By: TOMMY Oxycodone HCl (Oxycodone Hcl Ir 5 Mg Tab (Immediate Release)) 5 mg PO NOW STA Stop: 07/13/22 14:45 Last Admin: 07/13/22 14:50 Dose: 5 mg Documented By: LEI Medical Decision Making Laboratory Data 07/13/22 17:58 07/13/22 17:58 Imaging Data Radiologist's Impression: Forearm X-Ray 07/13/22 14:44 XR forearm LT 2V CLINICAL HISTORY: Fall, L hand, wrist and forearm pain TECHNIQUE: 2 views of the left forearm were obtained. Comparison: None available at the time of this dictation. FINDINGS: There is an acute comminuted fracture of the distal radius with intra-articular extension. No ulnar fracture is seen. Joint spaces are well-preserved. Soft tissue swelling is seen. IMPRESSION: Comminuted fracture of the distal radius with intra-articular extension and associated soft tissue swelling. ACT 112: Negative or not required by law. Electronically signed by: Jose Chahal M.D. 07/13/2022 3:47 PM Hand X-Ray 07/13/22 14:44 XR hand LT min 3V routine CLINICAL HISTORY: Fall, L hand, wrist and forearm pain COMPARISON: None FINDINGS: Note is made of an acute comminuted displaced distal left radial fracture with intra-articular extension. Fracture displacement and intra- articular extension is best depicted on lateral projection. No acute fracture within the left hand is noted. Carpal bones appear intact. There is wrist soft tissue swelling. IMPRESSION: 1. Acute comminuted displaced distal left radial fracture with significant intra-articular extension, best depicted on lateral projection. 2. No additional fractures. ACT 112: Negative or not required by law. Electronically signed by: Faizan Dougherty M.D. 07/13/2022 3:44 PM Wrist X-Ray 07/13/22 14:44 LEFT WRIST 3 VIEWS CLINICAL HISTORY: Left wrist injury. FINDINGS: 3 views of the left wrist are obtained. No prior studies are available for comparison at the time of dictation. The skeletal structures are well- mineralized. There is impacted and comminuted fracture of the distal radial metaphysis with intra-articular extension and apex dorsal angulation. There are depressed fragments at the articular surface. Additional anteriorly displaced fragments are noted. There is overlying soft tissue edema. The distal ulna is intact. No additional fracture is identified. IMPRESSION: Intra-articular fracture of the distal radius as detailed above. Electronically signed by: Justin Perez M.D. 07/13/2022 3:48 PM MDM Narrative Patient was seen and evaluated as above in room D06. Review was performed of triage nursing notes and vital signs. I did review pertinent previous visits and patient history. After obtaining a thorough history and physical examination the above work up was performed. Patient presents to us today for assessment of injury to the left wrist status post fall. He clinically is well-appearing and nontoxic. No other signs of bony injury beyond the left hand, wrist, forearm area. There is an abrasion to the palmar aspect of the right hand but this is minimal. Small abrasion to the left hand as well. Options of care were discussed with the patient. X-ray was obtained of the left forearm, wrist and hand. The patient does have an acute, comminuted displaced distal left radial fracture with significant intra-articular extension. This clinically correlates. This is a closed injury clinically. I discussed this with the orthopedist, Dr. Bonilla. He would like to repair this tomorrow in the operating room. Patient happy with this plan. Orthopedics came to evaluate the patient. They did splint the wrist as well. I then was notified by case management that there was a 302 warrant filed for the patient external to the hospital here. Please refer to the ED attending note regarding the 302. I will note that while here in the ED the patient did not make any statements or exhibit any concerning behavior. I did inform the patient and the 302 warrant. The patient after being informed upon this did seem concerned and continues to note that he seemed confused about why this was occurring. I informed him that the plan at this present time is to repair the wrist but also to proceed with mental health assessment. Patient agreeable to proceeding with laboratory studies and testing. At this time we will proceed with inpatient management with Ortho service as well as medical service and then psychiatric consult. This is felt to be reasonable. While here in the ED the patient was medicated with oral oxycodone for his pain. Labs reveal leukocytosis 12.18. No concerning anemia. T. bili elevation 1.8. Euthyroid state. Salicylates and acetaminophen are negative. Urine drug screen positive for marijuana. COVID-negative. Alcohol negative. EKG was obtained and reveals normal sinus rhythm with sinus arrhythmia at a rate of 64 bpm. QTc 420. QRS 94. No ST elevation. Admission process was already underway and orders were placed. The hospitalist service did place a CT scan order for the head. I then will note that a code purple was called and CT scan as the patient was there. I then immediately went to evaluate the patient in CT scan. Many medical personnel were already present at bedside. Patient administered Ativan noting the seizure. Seizure precautions were observed. He has a history of seizures. CT imaging was able to be obtained. Patient was stable and doing well overall. Please refer to further documentation regarding his stay. GCS on arrival: 15 In the evaluation and treatment of this patient the following differential diagnoses were entertained: Wrist fracture, wrist dislocation, open fracture, neurovascular compromise, head trauma, among others. Impression & Plan Closed fracture of left wrist, Seizure, Abrasion, hand Discharge Plan Visit Data Chief Complaint: Wrist Pain Stated Complaint: BROKE L WRIST ED Provider: Dolores Valderrama ED Midlevel Provider: Osmin Williamson Discharge Problem: Closed fracture of left wrist, Seizure, Abrasion, hand Patient Disposition: Admitted As Inpatient Condition: Good Discharge Instructions Interventions: ED Discharge Assessment Last Done: 07/13/22 20:38
--- NOTE | 2022-07-13 15:45 | XRay Report ---
XR hand LT min 3V routine CLINICAL HISTORY: Fall, L hand, wrist and forearm pain COMPARISON: None FINDINGS: Note is made of an acute comminuted displaced distal left radial fracture with intra-artic ular extension. Fracture displacement and intra-articular extension is best depicted on lateral proje ction. No acute fracture within the left hand is noted. Carpal bones appear intact. There is wrist so ft tissue swelling. IMPRESSION: 1. Acute comminuted displaced distal left radial fracture with significant intra-articular extension, best depicted on lateral projection. 2. No additional fractures. ACT 112: Negative or not required by law. Electronically signed by: Faizan Dougherty M.D. 07/13/2022 3:44 PM
--- NOTE | 2022-07-13 15:48 | XRay Report ---
XR forearm LT 2V CLINICAL HISTORY: Fall, L hand, wrist and forearm pain TECHNIQUE: 2 views of the left forearm were obtained. Comparison: None available at the time of this dictation. FINDINGS: There is an acute comminuted fracture of the distal radius with intra-articular extension. No ulnar f racture is seen. Joint spaces are well-preserved. Soft tissue swelling is seen. IMPRESSION: Comminuted fracture of the distal radius with intra-articular extension and associated soft tissue sw elling. ACT 112: Negative or not required by law. Electronically signed by: Jose Chahal M.D. 07/13/2022 3:47 PM
--- NOTE | 2022-07-13 15:50 | XRay Report ---
LEFT WRIST 3 VIEWS CLINICAL HISTORY: Left wrist injury. FINDINGS: 3 views of the left wrist are obtained. No prior studies are available for comparison at th e time of dictation. The skeletal structures are well-mineralized. There is impacted and comminuted f racture of the distal radial metaphysis with intra-articular extension and apex dorsal angulation. Th ere are depressed fragments at the articular surface. Additional anteriorly displaced fragments are n oted. There is overlying soft tissue edema. The distal ulna is intact. No additional fracture is iden tified. IMPRESSION: Intra-articular fracture of the distal radius as detailed above. Electronically signed by: Justin Perez M.D. 07/13/2022 3:48 PM
[2022-07-13] MEDS ORDERED: ONDANSETRON INJ 2 MG/ML 2 ML VIAL IV PRN (17:10)
[2022-07-13] MEDS ORDERED: MAGNESIUM HYDROXIDE SUSP 30 ML UDC PO PRN (17:10)
[2022-07-13] MEDS ORDERED: diphenhydrAMINE 50 MG/ML VIAL IV PRN (17:10)
[2022-07-13] MEDS ORDERED: ALUMINUM/MAGNESIUM SUSP 30 ML UDC PO PRN (17:10)
[2022-07-13] MEDS ORDERED: METOCLOPRAMIDE HCL INJ 5 MG/ML 2 ML VIAL IV PRN (17:10)
[2022-07-13] MEDS ORDERED: ZOLPIDEM TARTRATE 5 MG TAB PO PRN (17:10)
[2022-07-13] MEDS ORDERED: SODIUM CHLORIDE 0.9% 1000ML 1,000 ML IV SCH (17:15)
[2022-07-13] MEDS ORDERED: HYDROCODONE/ACETAMOPHEN 5/325MG TAB PO PRN (17:25)
[2022-07-13] MEDS ORDERED: HYDROmorphone INJ 0.5 MG/0.5 ML SYR IV PRN (17:25)
--- NOTE | 2022-07-13 17:37 | Hospitalist Consultation ---
Date of Consultation July 13, 2022 Assessment & Plan (1) Fracture of radius, distal, left, closed: -The patient is currently afebrile, hemodynamically stable, and stable on RA -Came to the hospital today due to left wrist pain, found to have a Intra- articular fracture of the distal radius -Orthopedics was consulted and is admitted the patient to their service and will take the patient to the OR tomorrow -His admission is complicated due to acute psychiatric and social issues, currently with a 302 placed -The patient will need to be medically cleared before his 302 can be upheld or denied, he will not be medically cleared until his procedure tomorrow -Pain control, perioperative abx, IV fluids and DVT PPX per the primary team -Will order and follow AM CBC and CMP (2) Temporal lobe seizure: -Has a previous history, now with apparent seizure in the CT machine, broke with 2 mg IV ativan -Unsure at this time if this was a true seizure or pseudoseizure -Will await final read of his CT head but on my initial read there was no large hemorrhage or space-occupying lesion -Loading with 1gm IV keppra now, then will continue with 1000 mg PO BID moving forward -Seizure precautions ordered -Patient will be [facility] for closer monitoring -Will consult Neurology to assist with continued treatment and medical clearance for Surgery (3) Encephalopathy: -The differential is broad at this time including but not limited to seizures, acute brain hemorrhage with recent fall, drug/alcohol abuse, metabolic encephalopathy, infection and psychosis -He has a mild leukocytosis but this is likely reactive, no other obvious signs of infection at this time, AG at 13 but with bicarb WNL and no other metabolic abnormalities, total bili of 1.8 but no abdominal pain -Awaiting final read of his CT head, urine tox screen and TSH are in process -Will give 1 mg IV Ativan now for anxiety/agitation -Psychiatry consulted by Orthopedics, they will see the patient tomorrow -For now will order suicide precautions and a 1:1 until he is seen by Psychiatry -The patient does not have the capacity to leave the hospital or make medical decisions at the time of admission Plan The patient was discussed with Dr. Walton at the time of the admission Supervising Physician Co-Signing Physician Notes I personally saw and examined the patient. I verified all nicholas points and agree with Alphonso Hickey PA-C with the following exceptions and/or additions: 36 year old male presents to the ER on 302 due to concern for suicidal ideation. He fractured his left wrist which orthopedics planning on operating on this tomorrow. When performing consultation he noted to PA feeling like he was having aura that he sometimes has prior to seizures. While being taken to CT he reportedly had a tonic-clonic movements concerning for a seizure. Please see full history above as I only saw the patient after lorazepam 3mg total given and he was drowsy and unable to provide any history to myself. O/E Alert but drowsy, saying words but sentences incomplete and don't make sense. Following simple commands poorly. Moving all extremities other than left arm which is currently splinted. PERRL. HS1+2, no murmurs, Chest CTAB, Abdo SNT A/P Seizure-like activity - patient will need to be medically cleared by neurology prior to surgery. Likely lower seizure threshold due to alcohol use and not completely clear if he missed any doses of Keppra. Loaded with Keppra now, then continue 1000mg PO BID. Left wrist fracture - orthopedics are currently the primary team but consider switching tomorrow given seizure like activity. Operation can still take place tomorrow as long as medically cleared by neurology. Suicidal ideation - consult psychiatry, [address] History of Present Illness Reason for Consultation: Medical management in the perioperative period Requesting Physician: Dr. Jean-Paul stewart Attending Physician: Dr. Rodney Walton History of Present Illness Rohith is a 36 yo male with a PMHx of anxiety, ADD, OCD, cyclic vomiting syndrome, and seizure who presented to the [facility] ED on 07/13/22 with a chief complaint of wrist pain. Per the ortho staff, the patient was having an argument with his mother as he was having suicidal ideations and was trying to leave his home. During their argument the patient reportedly fell, landing on his left wrist. In the ED the patient was found to be afebrile, hemodynamically stable, and stable on RA. Labs were remarkable for a CBC with a leukocytosis of 12 and left shift of 9, stable Hgb and platelets, stable renal function and electrolytes, AG of 13 with bicarb of 28, total bili of 1.8, otherwise LFT's WNL. Xray of the left forearm was read as "Comminuted fracture of the distal radius with intra-articular extension and associated soft tissue swelling". Xray of the left hand was read as "Acute comminuted displaced distal left radial fracture with significant intra-articular extension, best depicted on lateral projection. 2. No additional fractures.". And xray of the left wrist was read as "Intra-articular fracture of the distal radius as detailed above.". The patient is being admitted to the Orthopedic service who will take him to the OR tomorrow. We have been asked to consult for medical management in the p erioperative period and to ensure he will be medically cleared for Psychiatric evaluation after his surgery tomorrow. At the time of the exam the patient was lying in bed and appeared anxious. He states that he does not remember what has been going on to bring him to the hospital. He just recently found out from the ED staff that someone placed a 302 on him and this has made him very anxious. The only information he is able to provide me was that he had approximately 6-8 alcoholic drinks last night and that he used some of his medical Marijuana. The patient's only complaints at this time are pain from his left wrist and his chronic thoracic back pain from a previous injury when he had a previous seizure. The patient states that his last seizure was approximately 6 months ago. He is still taking keppra BID and thinks he has a follow-up with Neurology next week. The patient did give me permission to speak with his Brother (Kvng [phone]) to gather more information about the current situation. I was able to get in touch with Kvng who was able to provide clarity on the situation. He states that the patient's Girlfriend reportedly broke up with him on 07/08. Since then the patient has been using alcohol and drugs consistently. His brother states that the patient's behavior has been chaotic and dangerous. He has made threats to harm himself. The patient had been living with his mother as he has a long history of Psychiatric issues. Unfortunately their father took his own life last year due to increased stress with their family situation. The patient's Brother states that their mother attempted to leave the house yesterday evening but the patient would not let her leave. He jumped on the ferris of her car and stayed their for approximately 30 min before his mother was able to drive to Kvng's house. She told Kvng that she does not feel safe living with the patient at this time. His family stressed that they love the patient and want to make sure he gets help. His brother added that the patient was asking why he could not get in touch with their father and told Kvng he did not remember their father passing. Update (1999): Shortly after the admission the patient was taken over for his STAT CT of the head. A code purple was called as the patient began to have seizure activity as he laid flat on the CT table. Per the dietetic technician's, the patient first went stiff then began to have full-body shaking which lasted for approximately 30 seconds. He was given 2 mg IV ativan in the CT room and became alert shortly after. He appeared to be in a post-ictal state after his seizure but did not lose control of his bowel's or bladder. He was given 1gm IV keppra shortly after. Please refer to Dr. Walton for any changes to the treatment plan Allergies Allergy/AdvReac Type Severity Reaction Status Date / Time Sulfa (Sulfonamide Allergy Unknown "SULFA = Verified 07/13/22 16:49 Antibiotics) UNSURE OF REACTION" Home Medications Medication Instructions Recorded Confirmed Type K-99 Mix A Pro 1 dose PO DAILY 01/26/22 07/13/22 History Selicore Binder 1 dose PO DAILY 01/26/22 07/13/22 History cetirizine 10 mg tablet (Zyrtec) 10 mg PO DAILY PRN Congestion 01/26/22 07/13/22 History cod liver oil 1 cap PO DAILY 01/26/22 07/13/22 History coenzyme Q10 100 mg capsule 200 mg PO DAILY 01/26/22 07/13/22 History (CoQ-10) magnesium oxide 500 mg tablet 500 mg PO DAILY 01/26/22 07/13/22 History betaine-minerals capsule 1 cap PO DAILY 02/03/22 07/13/22 History levetiracetam 1,000 mg tablet 1,000 mg PO BID #60 tabs 02/09/22 07/13/22 Rx (Keppra) levocarnitine 500 mg capsule 1,000 mg PO DAILY 07/13/22 07/13/22 History (L-Carnitine) Patient History Medical History ADD (attention deficit disorder) Anxiety Cyclical vomiting Depression OCD (obsessive compulsive disorder) Overdose (05/28/14) Seizure-like activity Seizures Seizures Suicidal ideation Surgical History No significant past surgical history Family History (Updated 07/13/22 @ 17:40 by Arsenio Costello PA-C) Father Mother Skin cancer Other No significant family history Denies family history of Ovarian cancer Prostate cancer Myocardial infarction Breast cancer Lung cancer Colorectal cancer Hypertension Social History Smoking Status: Former smoker Tobacco Type: Cigarettes Age Started Using Tobacco: 17; Age Quit Using Tobacco: 33; packs per day: 1; Second Hand Exposure: No; Hx Alcohol Use: Yes Alcohol type: wine Hx Substance Use: Yes Prescribed Medications: Marijuana Last Used Substance: Days (ago) Preferred Language: Armenian Communication Ability: Effective Visual Impairment: Limited Hearing Ability: Normal Casino Runner Required: No Beliefs That Will Affect Care: None marital status: Single Current Living Situation: Family current occupational status: employed 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 Feels Safe at Home: Yes Childhood Exposure to Second-Hand Smoke: Yes Diet Comment: organic caffeine: Yes Dental Care, Regularly: Yes Physical Activity Frequency: 5-6 Times per Week Physical Activity Frequency Comment: run, cross country skiing weights and cardio Seatbelt Use: always Sunscreen Use: No Assistive Devices: None Review of Systems Review of Systems: Denies current fever, chills, headache, changes in vision, hearing, taste, and smell, chest pain, SOB, cough, abdominal pain, nausea, vomiting, diarrhea, hematemesis, melena, dysuria, hematuria All systems have been reviewed and are otherwise negative. Physical Exam Physical Exam: Physical Exam: General: In moderate distress due to anxiety regarding the current situation, stated age, well-nourished, good hygiene HEENT: Normocephalic, atraumatic, no scleral icterus, pupils around round, symmetrical, and reactive to light, moist mucus membranes, trachea midline, no thyromegaly Chest/Pulm: No respiratory distress, symmetrical chest expansion, clear breath sounds throughout Cardiac: RRR, no murmurs noted Abdomen: Negative for ascites and bruising, normoactive bowel sounds, soft, non-tender to palpation throughout Musculoskeletal: Patient with left wrist currently splinted and with intact sensation and motor function, no trauma or tenderness to palpation of the head, cervical spine, lumbar spine and other extremities. Patient with chronic pain with palpation to the thoracic spine due to an old injury Extremities: Radial, dorsalis pedis, and posterior tibial pulses are intact and symmetrical, no edema noted in the BL LE's Skin: Warm, dry, no rashes , lesions, or scars noted Neuro: Alert and oriented to person, place, month, year, and president, no focal defects, CN II-XII tested and intact, Psych: Very anxious and confused, not agitated and cooperative with the entire exam Results & Data Results & Data Vital Signs (Past 12 Hours) Vital Signs Temp Pulse Pulse Resp BP BP Pulse Ox 07/13/22 15:07 68 20 132/70 98 07/13/22 14:38 36.8 C 74 18 133/62 97 O2 Del Method 07/13/22 15:07 Room Air 07/13/22 14:38 Room Air Laboratory Results Abnormal lab results 07/13/22 07/13/22 07/13/22 Range/Units 17:58 17:58 17:58 WBC 12.18 H (4.8-10.8) K/ul RBC 4.66 L (4.70-6.10) M/uL Neut # (Auto) 9.13 H (1.40-6.50) K/uL Meriwether # (Auto) 1.47 H (0.11-0.59) K/uL Chloride 96 L (98-107) mmol/L Anion Gap 13 H (3-11) BUN/Creatinine Ratio 20.9 H (10-20) Glucose 110 H (70-99(Fasting)) mg/dl Total Bilirubin 1.8 H (0.2-1.0) mg/dl Total Protein 8.8 H (6.0-8.3) gm/dl Albumin 5.5 H (3.4-5.0) gm/dl Urine Appearance (Clear) Urine pH (4.5-7.5) Urine Protein (Negative) Urine Ketones (Negative) U Epithel Cells (Auto) (0-5) /lpf Salicylates < 3.0 L (3.0-30) mg/dl Acetaminophen < 3 L (10-30) ug/ml 07/13/22 Range/Units 18:23 WBC (4.8-10.8) K/ul RBC (4.70-6.10) M/uL Neut # (Auto) (1.40-6.50) K/uL Meriwether # (Auto) (0.11-0.59) K/uL Chloride (98-107) mmol/L Anion Gap (3-11) BUN/Creatinine Ratio (10-20) Glucose (70-99(Fasting)) mg/dl Total Bilirubin (0.2-1.0) mg/dl Total Protein (6.0-8.3) gm/dl Albumin (3.4-5.0) gm/dl Urine Appearance Turbid A (Clear) Urine pH 8.0 H (4.5-7.5) Urine Protein Trace H (Negative) Urine Ketones 3+ H (Negative) U Epithel Cells (Auto) 5-10 H (0-5) /lpf Salicylates (3.0-30) mg/dl Acetaminophen (10-30) ug/ml Diagnostic Findings Forearm X-Ray 07/13/22 14:44 XR forearm LT 2V CLINICAL HISTORY: Fall, L hand, wrist and forearm pain TECHNIQUE: 2 views of the left forearm were obtained. Comparison: None available at the time of this dictation. FINDINGS: There is an acute comminuted fracture of the distal radius with intra-articular extension. No ulnar fracture is seen. Joint spaces are well-preserved. Soft tissue swelling is seen. IMPRESSION: Comminuted fracture of the distal radius with intra-articular extension and associated soft tissue swelling. ACT 112: Negative or not required by law. Electronically signed by: Jose Chahal M.D. 07/13/2022 3:47 PM Hand X-Ray 07/13/22 14:44 XR hand LT min 3V routine CLINICAL HISTORY: Fall, L hand, wrist and forearm pain COMPARISON: None FINDINGS: Note is made of an acute comminuted displaced distal left radial fracture with intra-articular extension. Fracture displacement and intra- articular extension is best depicted on lateral projection. No acute fracture within the left hand is noted. Carpal bones appear intact. There is wrist soft tissue swelling. IMPRESSION: 1. Acute comminuted displaced distal left radial fracture with significant intra-articular extension, best depicted on lateral projection. 2. No additional fractures. ACT 112: Negative or not required by law. Electronically signed by: Faizan Dougherty M.D. 07/13/2022 3:44 PM Wrist X-Ray 07/13/22 14:44 LEFT WRIST 3 VIEWS CLINICAL HISTORY: Left wrist injury. FINDINGS: 3 views of the left wrist are obtained. No prior studies are available for comparison at the time of dictation. The skeletal structures are well- mineralized. There is impacted and comminuted fracture of the distal radial metaphysis with intra-articular extension and apex dorsal angulation. There are depressed fragments at the articular surface. Additional anteriorly displaced fragments are noted. There is overlying soft tissue edema. The distal ulna is intact. No additional fracture is identified. IMPRESSION: Intra-articular fracture of the distal radius as detailed above. Electronically signed by: Justin Perez M.D. 07/13/2022 3:48 PM ECG Additional Comments: Normal sinus rhythm with sinus arrhythmia Normal ECG When compared with ECG of 26-JAN-2022 11:31, No significant change was found PG Care Time/CCT Total # of Minutes Spent Total Time Spent with Patient: Total time spent is greater than 50% in coordination of care (as documented) at patient's floor/unit and/or counseling patient: [place] [address] IN/OBS CONSULT LVL 5,80M Patient Type Established Medical Decision Making High Complexity Diagnoses Fracture of radius, distal, left, closed S52.502A Temporal lobe seizure G40.109 Encephalopathy G93.40
--- NOTE | 2022-07-13 17:51 | History & Physical Report ---
Date of Service July 13, 2022 Assessment & Plan (1) Fracture of radius, distal, left, closed: Plan: Patient will be admitted tonight for anticipated surgery tomorrow morning. He may eat this evening but will be n.p.o. after midnight. Patient was splinted in a volar Ortho-Glass splint. This must remain in place at all times. L arm to be elevated on pillows. Oral and IV pain medication was ordered. He will be admitted to the orthopedic service with hospitalist and psychiatric consultation. If he is deemed safe, plan will be for him to be discharged after the OR tomorrow. If he is found to be in need of additional psychiatric evaluation, he can be moved to the psychiatric wing at that time. Continue with ice and elevation of the wrist to reduce pain and swelling. Informed written consent was obtained by Dr. Bonilla to proceed with surgical intervention tomorrow. History of Present Illness Chief Complaint: Left wrist fracture Suicidal ideation Primary Care Provider: Logan Nails DO This 36-year-old male injured himself last evening around 5 PM. He states he was running down his driveway in [facility] and slipped, falling forward onto both hands. He sustained an injury to his wrists as well as his right hip. He did not seek treatment last night because he did not have a ride to the hospital. 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 He has been seizure- free since then. He is now on Keppra. He sees Dr. Hernandez from neurology for management. No prior history of wrist injury. He denies any numbness but does have some tingling to his fingers. He describes some soreness in the left upper arm and forearm, but his worst pain is at the wrist. He notes limitation in motion of the elbow, wrist, and digits. [id number]. Radiographic imaging has been obtained. Further exploration of his medical record reveals a 302 petition that states he threatened to kill himself last evening with a gun. He recently broke up with his girlfriend. His mother had taken away all firearms without him knowing. He became irate at not being able to find a gun, and threatened to drive himself to a bridge and jump off. He was not able to find keys to the car. His mother had the keys and attempted to leave. He reportedly jumped on the ferris of the car, attempting to prevent her from leaving. Allergies Allergy/AdvReac Type Severity Reaction Status Date / Time Sulfa (Sulfonamide Allergy Unknown "SULFA = Verified 07/13/22 16:49 Antibiotics) UNSURE OF REACTION" Home Medications Medication Instructions Recorded Confirmed Type K-99 Mix A Pro 1 dose PO DAILY 01/26/22 07/13/22 History Selicore Binder 1 dose PO DAILY 01/26/22 07/13/22 History cetirizine 10 mg tablet (Zyrtec) 10 mg PO DAILY PRN Congestion 01/26/22 07/13/22 History cod liver oil 1 cap PO DAILY 01/26/22 07/13/22 History coenzyme Q10 100 mg capsule 200 mg PO DAILY 01/26/22 07/13/22 History (CoQ-10) magnesium oxide 500 mg tablet 500 mg PO DAILY 01/26/22 07/13/22 History betaine-minerals capsule 1 cap PO DAILY 02/03/22 07/13/22 History levetiracetam 1,000 mg tablet 1,000 mg PO BID #60 tabs 02/09/22 07/13/22 Rx (Keppra) levocarnitine 500 mg capsule 1,000 mg PO DAILY 07/13/22 07/13/22 History (L-Carnitine) Past Med/Surg History Medical History ADD (attention deficit disorder) Anxiety Cyclical vomiting Depression OCD (obsessive compulsive disorder) Overdose (05/28/14) Seizure-like activity Seizures Seizures Suicidal ideation Surgical History No significant past surgical history Family History (Updated 07/13/22 @ 17:40 by Arsenio Costello PA-C) Father Mother Skin cancer Other No significant family history Denies family history of Ovarian cancer Prostate cancer Myocardial infarction Breast cancer Lung cancer Colorectal cancer Hypertension Social History Smoking Status: Former smoker Tobacco Type: Cigarettes Age Started Using Tobacco: 17; Age Quit Using Tobacco: 33; packs per day: 1; Second Hand Exposure: No; Hx Alcohol Use: Yes Alcohol type: wine Hx Substance Use: Yes Prescribed Medications: Marijuana Last Used Substance: Days (ago) Preferred Language: Kyrgyz Communication Ability: Effective Visual Impairment: Limited Hearing Ability: Normal Animal Trainer Required: No Beliefs That Will Affect Care: None marital status: Single Current Living Situation: Family current occupational status: 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 Physical Exam Physical Exam: General: Well-developed, well-nourished, young male, in no acute distress. No obvious discomfort. Sitting on the bed. Alert and oriented. Skin: Warm and dry with good turgor. No rashes or lesions. Mild ecchymosis developing at the left wrist. The patient is not diaphoretic. Multiple abrasions present on both palms as well as the right hip. None of these look infected. No appreciable foreign material. There is edema present at his left wrist and forearm. HEENT: Normocephalic atraumatic. Eyes PERRLA, EOMI. No conjunctiva or scleral injection. Nares patent bilaterally without turbinate enlargement. No significant drainage. No epistaxis. Oropharynx without erythema or exudate. Uvula midline, oral mucosa moist. No lesions present. Heart: Heart RRR. No MGR. Peripheral pulses are 2+. Lungs: Lungs are clear to auscultation. No crackles rhonchi or wheezing. Good air movement. The patient is able to take a deep breath. Abdomen: Abdomen was inspected, auscultated, and palpated. Bowel sounds present x 4. Soft, nontender to palpation. No hepato-splenomegaly. No masses noted. No rebound. Musculoskeletal: Gross motor function of the upper and lower extremities is intact for the right arm, and both legs. Left arm has full range of motion of the shoulder. He has full flexion and extension of the elbow but there is limited supination and pronation secondary to wrist pain. There is very limited motion of the wrist secondary to pain. Full pronation, supination to just past neutral. Very limited flexion and extension as well as radial and ulnar deviation. Motor function of the digits is intact but causes pain at the wrist. Thumb circumduction and opposition are intact. He has discomfort with palpation over the mid bicep, midshaft forearm, and wrist. Neurologic: Gross sensation is intact across both lower extremities by soft touch. Sensation is also intact to the right arm and hand. He complains of some tingling to the fingers on the left hand, but sensation is intact. Psych: Patient is anxious at this time. Makes good eye contact with conversation. Normal thought process. No tangential or grandiose thoughts. Results & Data Results & Data Vital Signs (Past 12 Hours) Vital Signs Temp Pulse Pulse Resp BP BP Pulse Ox 07/13/22 15:07 68 20 132/70 98 07/13/22 14:38 36.8 C 74 18 133/62 97 O2 Del Method 07/13/22 15:07 Room Air 07/13/22 14:38 Room Air Laboratory Results CBC and chemistry panels as well as Tylenol level and alcohol level are pending. Diagnostic Findings Radiographic imaging previously obtained of the left wrist show an intra- articular fracture of the distal radius that is impacted, displaced and comminuted. Unstable volar Lu pattern injury. Code Status & VTE Plan VTE Prophylaxis Plan VTE Prophylaxis will be ordered: Yes Supervising Physician Co-Signing Physician Notes I saw and examined the patient, reviewed his imaging, formulated the above plan, and performed the substantive portion of the visit. Agree with the above note. Surgery recommended treatment for this unstable pattern injury. I reviewed risks/benefits of surgery, alternatives and expected outcomes. Patient elects to proceed. Informed consent signed. NPO after midnight tonight for surgery tomorrow.
--- NOTE | 2022-07-13 18:00 | Emergency Department Note ---
ED Visit Note I agree with the diagnosis and management decisions and have been personally involved in the case, seen primarily by Osmin Williamson PA-C. 302 warrant has been issued on grounds of suicidal statements and actions. Pt is unable to be medically cleared d/t need for surgery. Psychiatric consultation recommended once medically stable. . 302 Evaluation Medically Cleared Patient was unable to be medically cleared for psychiatric evaluation to determine need for immediate mental health treatment as of time of admission. 302 warrant has been submitted and will require disposition.
[2022-07-13] MEDS ORDERED: LORazepam 2 MG/1 ML VIAL IV STA (18:05)
[2022-07-13 18:16] LABS: Basophils # (auto) 0.06 K/uL (0-0.2); Basophils % (auto) 0.5 %; Eosinophils # (auto) 0.02 K/uL (0-0.50); Eosinophils % (auto) 0.2 %; Hematocrit (blood only) 44.4 % (42.0-52.0); Hemoglobin 15.5 g/dl (14.0-18.0); Immature Granulocytes # (auto) 0.06 K/uL (0.01-0.20); Immature Granulocytes % (auto) 0.5 %; Lymphocytes # (auto) 1.44 K/uL (1.2-3.4); Lymphocytes % (auto) 11.8 %; Mean Corpuscular Hemoglobin 33.3 pg (25.0-34.0); Mean Corpuscular Hgb Conc 34.9 g/dL (32.0-36.0); Mean Corpuscular Volume 95.3 fL (80.0-100.0); Mean Platelet Volume 9.6 fL (9.4-12.4); Monocytes # (auto) 1.47 K/uL (0.11-0.59); Monocytes % (auto) 12.1 %; Neutrophils # (auto) 9.13 K/uL (1.40-6.50); Neutrophils % (auto) 74.9 %; Platelet Count 256 K/uL (130-400); RDW Coefficient of Variation 12.6 % (11.5-14.5); RDW Standard Deviation 43.8 fL (36.4-46.3); Red Blood Count 4.66 M/uL (4.70-6.10); White Blood Count 12.18 K/ul (4.8-10.8)
[2022-07-13 18:33] LABS: Albumin Globulin Ratio 1.7 (0.9-2); Albumin Level 5.5 gm/dl (3.4-5.0); BUN Creatinine Ratio 20.9 (10-20); Bilirubin,Total 1.8 mg/dl (0.2-1.0); Calcium 10.3 mg/dl (8.6-10.3); Creatinine Clr Calc Pharmacy 102.6 ml/min; Est GFR (African American) 130.2 ml/min; Est GFR (Non-African American) 112.3 ml/min; Globulin 3.3 gm/dl (2.5-4.0); Potassium 4.1 mmol/L (3.5-5.1); Total Protein 8.8 gm/dl (6.0-8.3)
[2022-07-13 18:46] LABS: Appearance Urine Turbid (Clear); Bacteria Urine Automated Negative (Negative); Bilirubin Urine Negative (Negative); Blood Urine Negative (Negative); Cast Urine Automated 0 /lpf (0-5); Color Urine Yellow; Glucose Urine UA Negative (Negative); Ketones Urine 3+ (Negative); Leukocyte Esterase Urine Negative (Negative); Nitrite Urine Negative (Negative); RBC Urine Automated 0-4 /hpf (0-4); Specific Gravity Urine 1.018 (1.000-1.030); Urobilinogen Urine Negative (Negative); WBC Urine Automated 0 /hpf (0-5)
[2022-07-13 18:49] LABS: Acetaminophen < 3 ug/ml (10-30); Salicylate < 3.0 mg/dl (3.0-30)
[2022-07-13 18:53] LABS: Protein Urine Trace (Negative)
[2022-07-13 19:18] LABS: Amphetamines+Metham, Urine Neg (Neg); Barbiturates, Urine Neg (Neg); Benzodiazepine, Urine Neg (Neg); Cocaine, Urine Neg (Neg); MDMA (Ecstacy), Urine Neg (Neg); Methadone, Urine Neg (Neg); Opiate, Urine Neg (Neg); Phencyclidine, Urine Neg (Neg)
[2022-07-13] MEDS ORDERED: levETIRAcetam 1,000 MG in 0.9 % SODIUM CHLORIDE 100 ML IV STA (19:31)
[2022-07-13] MEDS ORDERED: HALOPERIDOL LACTATE 5 MG/ML 1 ML VIAL IV PRN (19:37)
[2022-07-13] MEDS ORDERED: LORazepam 2 MG/1 ML VIAL IV PRN ×4 (19:38→20:33)
--- NOTE | 2022-07-13 19:52 | CT Scan Report ---
Exam(s): CT HEAD Without Contrast EXAM: CT Head Without Intravenous Contrast CLINICAL HISTORY: Reason for exam: fall, AMS. TECHNIQUE: Axial computed tomography images of the head/brain without intravenous contrast. CTDI is 54.84 mGy and DLP is 884.08 mGy-cm. Automated exposure control was utilized for the study. A dose lowering technique was utilized adhering to the principles of ALARA. COMPARISON: MRI brain on 01/26/[address] head on 01/25/2022. FINDINGS: Brain: No acute infarct or hemorrhage. No extra-axial fluid collection. No mass effect or midline shift. Ventricles and sulci: Normal. No ventriculomegaly or intraventricular hemorrhage. Bones: Normal. No bony lesion or acute fracture. Subcutaneous tissues: Normal. Sinuses: Normal. No air-fluid levels or mucosal thickening. Mastoid air cells: Normal. Orbits: Grossly unremarkable. IMPRESSION: No acute intracranial abnormality. Electronically signed by: Ronna Zimmer M.D. 07/13/22 19:51 PM
[2022-07-13] MEDS ORDERED: LACTATED RINGER'S 1,000 ML IV ONE (19:58)
[2022-07-13] MEDS ORDERED: levETIRAcetam 500 MG TAB PO SCH ×2 (21:00)
[2022-07-13] MEDS: LACTATED RINGER'S 1,000 ML IV SCH (22:19)
[2022-07-14 05:02] LABS: Hematocrit (blood only) 37.9 % (42.0-52.0); Hemoglobin 13.5 g/dl (14.0-18.0); Mean Corpuscular Hemoglobin 33.3 pg (25.0-34.0); Mean Corpuscular Hgb Conc 35.6 g/dL (32.0-36.0); Mean Corpuscular Volume 93.6 fL (80.0-100.0); Mean Platelet Volume 9.4 fL (9.4-12.4); Platelet Count 200 K/uL (130-400); RDW Coefficient of Variation 12.2 % (11.5-14.5); RDW Standard Deviation 42.4 fL (36.4-46.3); Red Blood Count 4.05 M/uL (4.70-6.10); White Blood Count 10.36 K/ul (4.8-10.8)
[2022-07-14 05:18] LABS: Albumin Globulin Ratio 1.7 (0.9-2); Albumin Level 4.5 gm/dl (3.4-5.0); BUN Creatinine Ratio 21.9 (10-20); Bilirubin,Total 1.9 mg/dl (0.2-1.0); Calcium 9.3 mg/dl (8.6-10.3); Creatinine Clr Calc Pharmacy 120.9 ml/min; Est GFR (African American) 139.3 ml/min; Est GFR (Non-African American) 120.2 ml/min; Globulin 2.7 gm/dl (2.5-4.0); Potassium 4.3 mmol/L (3.5-5.1); Total Protein 7.2 gm/dl (6.0-8.3)
[2022-07-14] MEDS ORDERED: ceFAZolin 2000MG 2,000 MG/15 ML SYR IV SCH (06:00)
[2022-07-14] MEDS ORDERED: ONDANSETRON INJ 2 MG/ML 2 ML VIAL ONE (07:26)
[2022-07-14] MEDS ORDERED: MIDAZOLAM HCL 1 MG/ML 2ML VIAL ONE (07:26)
[2022-07-14] MEDS ORDERED: PROPOFOL IV EMULSION 10 MG/ML 20 ML VIAL IV ONE (07:26)
[2022-07-14] MEDS ORDERED: DEXAMETHASONE SOD INJ 4 MG/ML VIAL ONE (07:26)
[2022-07-14] MEDS ORDERED: fentaNYL citrate PF 100 MCG/2 ML VIAL ONE (07:26)
[2022-07-14] MEDS ORDERED: KETAMINE 50 MG/5 ML SYRINGE ONE (07:30)
[2022-07-14] MEDS ORDERED: ROPIVACAINE 0.5% 5 MG/ML 30 ML VIAL ONE (07:40)
[2022-07-14] MEDS ORDERED: EPINEPHrine INJ 1 MG/ML AMP ONE (07:40)
[2022-07-14] MEDS ORDERED: ROCURONIUM BROMIDE 10 MG/ML 5 ML VIAL IV ONE ×3 (08:09→10:54)
[2022-07-14] MEDS ORDERED: SUGAMMADEX SODIUM 200 MG/2 ML VIAL IV ONE (08:12)
[2022-07-14] MEDS ORDERED: METOCLOPRAMIDE HCL INJ 5 MG/ML 2 ML VIAL ONE (08:14)
[2022-07-14] MEDS ORDERED: SUCCINYLCHOLINE CHLORIDE 20 MG/ML 10 ML VIAL IV ONE (08:36)
--- NOTE | 2022-07-14 08:40 | Anesthesiology Consultation ---
Date of Service July 14, 2022 Assessment & Plan Chart Review Chart Review: Acceptable Risk for Surgery and Patient NOT seen in Pre Admission Testing Consults Requested none ASA ASA3 Proposed Anesthesia Anesthesia Type: General Regional Regional Laterality: Left Site: Supraclavicular Risk / Benefits Reviewed With: PT / POA / Parent / Guardian, Accepts Plan and Informed Consent Obtained History Surgery Operation Date: 07/14/22 09:10 Proposed Procedures p Left Wrist Open Reduction Internal Fixation - Jean-Paul Bonilla MD Height/Weight Height: 5 ft 6 in Weight: 60.5 kg Allergies Allergy/AdvReac Type Severity Reaction Status Date / Time Sulfa (Sulfonamide Allergy Unknown "SULFA = Verified 07/13/22 16:49 Antibiotics) UNSURE OF REACTION" Medications Home Medications Medication Instructions Recorded Confirmed Last Taken K-99 Mix A Pro 1 dose PO DAILY 01/26/22 07/13/22 07/13/22 Selicore Binder 1 dose PO DAILY 01/26/22 07/13/22 07/13/22 cetirizine 10 mg tablet (Zyrtec) 10 mg PO DAILY PRN Congestion 01/26/22 07/13/22 Unknown cod liver oil 1 cap PO DAILY 01/26/22 07/13/22 07/13/22 coenzyme Q10 100 mg capsule 200 mg PO DAILY 01/26/22 07/13/22 07/13/22 (CoQ-10) magnesium oxide 500 mg tablet 500 mg PO DAILY 01/26/22 07/13/22 07/13/22 betaine-minerals capsule 1 cap PO DAILY 02/03/22 07/13/22 07/13/22 levetiracetam 1,000 mg tablet 1,000 mg PO BID #60 tabs 02/09/22 07/13/22 07/13/22 08:00 (Keppra) levocarnitine 500 mg capsule 1,000 mg PO DAILY 07/13/22 07/13/22 07/13/22 (L-Carnitine) Active Medications Generic Name Dose Route Start Last Admin Trade Name Freq PRN Reason Stop Dose Admin Hydromorphone HCl 0.5 mg 07/13/22 17:25 07/13/22 23:46 Hydromorphone Inj 0.5 Mg/0.5 Ml Syr IV 07/27/22 17:24 0.5 mg Q6H PRN Administration Pain Lactated Ringer's 1,000 mls @ 100 mls/hr 07/13/22 22:30 07/13/22 22:19 Lr IV 07/14/22 18:29 100 mls/hr .Q10H VIKTOR Administration Zolpidem Tartrate 5 mg 07/13/22 17:10 07/14/22 00:39 Zolpidem Tartrate 5 Mg Tab PO 08/12/22 17:09 5 mg HS PRN Administration Sleep NPO Date Last Intake of Fluids: 07/13/22 Time Last Intake of Fluids: 21:00 Date Last Intake of Solids: 07/13/22 Time Last Intake of Solids: 08:00 Past Medical History Medical History ADD (attention deficit disorder) Anxiety Cyclical vomiting Depression OCD (obsessive compulsive disorder) Overdose (05/28/14) Seizure-like activity Seizures Seizures Suicidal ideation Exercise / Class Metabolic Activity II 4-5 Yardwork/Stairs/Walk up hill Past Family History Family History Father Mother Skin cancer Other No significant family history Denies family history of Ovarian cancer Prostate cancer Myocardial infarction Breast cancer Lung cancer Colorectal cancer Hypertension Past Surgical History Surgical History No significant past surgical history Past Anesthesia History No Hx of Anesthesia Complications and No Family Hx of Anesthesia Complications History of PONV No Hx of PONV and No Hx of Motion Sickness Social History Smoking Status: Former smoker tobacco type: cigarettes Hx Alcohol Use: Yes Alcohol type: wine alcohol intake frequency: 0-2 drinks per day Hx Substance Use: Yes substance use type: marijuana Last Used Substance: Days (ago) Physical Exam Vital Signs Last Vital Signs Temp 37.1 C 07/13/22 23:00 Pulse 65 07/14/22 06:51 Resp 16 07/14/22 03:54 BP 122/69 07/14/22 03:54 Pulse Ox 94 07/14/22 03:54 O2 Del Method Room Air 07/14/22 03:54 Constitutional no acute distress and not cachectic ENMT Mouth: no dentition abnormality Thyromental Distance: > or= 3.5 Finger Breadths Mallampati Class: II Neck normal visual inspection and trachea midline; neck extension not limited Respiratory normal respiratory effort Auscultation: lungs clear to auscultation bilaterally Cardiovascular Rate/Rhythm: regular rate and regular rhythm Heart Sounds: no murmur Musculoskeletal Spine: normal cervical ROM and no pain with cervical ROM Extremities: full ROM of extremities Neurologic moves all extremities Motor/Sensory: no sensory deficit Psychiatric Orientation: alert and oriented x 3 Testing Laboratory Results 07/14/22 04:51 07/14/22 04:51 Urine Color Yellow 07/13/22 18: Urine Appearance Turbid (Clear) A 07/13/22 18: Urine pH 8.0 (4.5-7.5) H 07/13/22 18: Ur Specific [place] 1.018 (1.000-1.030) 07/13/22 18: Urine Protein Trace (Negative) H 07/13/22 18:23 Urine Glucose (UA) Negative (Negative) 07/13/22 18: Urine Ketones 3+ (Negative) H 07/13/22 18: Urine Nitrite Negative (Negative) 07/13/22 18:23 Ur Leukocyte Esterase Negative (Negative) 07/13/22 18:23 Urine WBC (Auto) 0 /hpf (0-5) 07/13/22 18:23 Urine RBC (Auto) 0-4 /hpf (0-4) 07/13/22 18: U Hyaline Cast (Auto) 0 /lpf (0-5) 07/13/22 18: U Epithel Cells (Auto) 5-10 /lpf (0-5) H 07/13/22 18: Urine Bacteria (Auto) Negative (Negative) 07/13/22 18: Electrocardiogram Date: 07/13/22 Findings: + NSR @ (@ 65 w/ sinus arrhythmia)
--- NOTE | 2022-07-14 08:48 | Hospitalist Consultation ---
Date of Consultation July 14, 2022 Assessment & Plan (1) Closed fracture of left wrist: 36 year old man with hx of epilepsy, anxiety, admitted for surgical repair of left wrist fracture. Now admitted for medical management, pending resolution of 302 petition due to concern of suicidal ideation/intent. Closed fracture of left wrist -Now s/p ORIF. Medically cleared postop by orthopedic surgery. * Pain control: Percocet 5 mg every 4 hours as needed Epilepsy -Patient of Dr. Logan Hernandez. Takes Keppra 1000 mg twice daily at home. -Poor compliance due to patient's reportedly poor tolerance. Plan to cross taper from Keppra to lamotrigine over the next few weeks. * Continue Keppra 1000 mg twice daily * Starting lamotrigine 25 mg p.o. twice daily. * A.m. Keppra level Suicidal ideation -Voluntary 302 petition currently under evaluation by psychiatry due to aforementioned events (see HPI, H&P document on admission). -No beds in psych unit. Psych liaison will begin bed search at facilities approved by patient. * One-to-one sitter * Consult psych liaison if patient attempts to leave AMA, as 302 criteria still in effect. Patient will then be converted to involuntary status. Anxiety * P.o. Ativan 0.5 mg every 4 hours as needed. Insomnia * Melatonin 6 mg p.o. as needed. Code: Full code Dispo: Med-Surg telemetry FEN/GI: Gluten-free diet DVT Prophylaxis: None PT/OT: No Consults: Psychiatry, neurology, hospitalist (2) Seizure disorder: (3) Fracture of radius, distal, left, closed: (4) OCD (obsessive compulsive disorder): (5) Anxiety: Supervising Physician Co-Signing Physician Notes 36 yr old on admission for left radial fracture s/p ORIF POD 0. Psychiatry consulted for suicidal thoughts and currently under 302 petition. Patient endors es worsening psychiatric status with AED keppra. Neurology consulted for possible cross taper to alternative AED. Psychiatry working on bed placement. I personally examined the patient and verified all nicholas points of history and exam, discussed case, and agree with decision making and plan documented by Dr. Barber. History of Present Illness Reason for Consultation: Medical management Attending Physician: Jean-Paul Bonilla MD History of Present Illness Rohith is a 36 year old man who presents to the hospital for a left wrist intra- articular comminuted distal radius fracture, ORIF. His medical history is significant only for a relatively recent diagnosis of epilepsy in January 2022, now managed on Keppra. Last night patient fell onto his outstretched hands and broke his left wrist in an incident in which he expressed suicidal ideation. According to his mother, he recently broke up with his girlfriend, after which he threatened to kill himself with a gun. Mom had moved the guns by the time he went looking for them, at which point he became more agitated. He then tried to drive off (his license is suspended due to the seizures until July) but mom had also hidden the keys. He then stood in front of his mother's vehicle to prevent her from leaving. It is unclear what happened afterwards, but he apparently fell and fractured his wrist while attempting to break his fall. On arrival, he's now post-op ORIF procedure. He reports some anxiety at the prospect of being 302'd. He reports poor tolerance of the Keppra and he blames it for his current state. When asked to elaborate, he does not respond. Allergies Allergy/AdvReac Type Severity Reaction Status Date / Time Sulfa (Sulfonamide Allergy Unknown "SULFA = Verified 07/13/22 16:49 Antibiotics) UNSURE OF REACTION" Home Medications Medication Instructions Recorded Confirmed Type K-99 Mix A Pro 1 dose PO DAILY 01/26/22 07/13/22 History Selicore Binder 1 dose PO DAILY 01/26/22 07/13/22 History cetirizine 10 mg tablet (Zyrtec) 10 mg PO DAILY PRN Congestion 01/26/22 07/13/22 History cod liver oil 1 cap PO DAILY 01/26/22 07/13/22 History coenzyme Q10 100 mg capsule 200 mg PO DAILY 01/26/22 07/13/22 History (CoQ-10) magnesium oxide 500 mg tablet 500 mg PO DAILY 01/26/22 07/13/22 History betaine-minerals capsule 1 cap PO DAILY 02/03/22 07/13/22 History levetiracetam 1,000 mg tablet 1,000 mg PO BID #60 tabs 02/09/22 07/13/22 Rx (Keppra) levocarnitine 500 mg capsule 1,000 mg PO DAILY 07/13/22 07/13/22 History (L-Carnitine) Patient History Medical History ADD (attention deficit disorder) Anxiety Cyclical vomiting Depression OCD (obsessive compulsive disorder) Overdose (05/28/14) Seizure-like activity Seizures Seizures Suicidal ideation Surgical History No significant past surgical history Family History Father Mother Skin cancer Other No significant family history Denies family history of Ovarian cancer Prostate cancer Myocardial infarction Breast cancer Lung cancer Colorectal cancer Hypertension Social History Smoking Status: Former smoker Tobacco Type: Cigarettes Age Started Using Tobacco: 17; Age Quit Using Tobacco: 33; packs per day: 1; Second Hand Exposure: No; Hx Alcohol Use: Yes Alcohol type: wine Hx Substance Use: Yes Prescribed Medications: Marijuana Last Used Substance: Days (ago) Preferred Language: Indonesian Communication Ability: Effective Visual Impairment: Limited Hearing Ability: Normal Logistics Lead Required: No Beliefs That Will Affect Care: None marital status: Single Current Living Situation: Parent 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 Normal conjunctiva, anicteric sclera. Oropharynx normal. Respiratory: Normal respiratory effort, CTABL. Cardiovascular: RRR without murmurs, gallops, or rubs. No edema. GI: Soft abdomen with normal bowel sounds heard on auscultation. Nontender x4 quadrants Neuro: Alert and oriented x3. Results & Data Results & Data Vital Signs (Past 12 Hours) Vital Signs Temp Pulse Pulse Resp BP Pulse Ox O2 Del Method 07/14/22 06:51 65 07/14/22 03:54 59 L 16 122/69 94 Room Air 07/13/22 23:49 64 16 114/83 99 Room Air 07/13/22 23:25 49 L 07/13/22 23:00 37.1 C 07/13/22 21:50 97 H 17 96 07/13/22 21:40 56 L 15 97 07/13/22 21:30 88 23 07/13/22 21:20 57 L 22 07/13/22 21:10 60 21 07/13/22 21:00 56 L 20 07/13/22 20:50 84 15 Resident Activity Tracking Resident Involvement: Resident Care Provided Care Provided: Adult Hospital Medicine
[2022-07-14] MEDS ORDERED: DexMEDEtomidine HCL IV 100 MCG/ML VIAL IV ONE (08:53)
[2022-07-14] MEDS ORDERED: NON-FORMULARY MEDICATION (Magnesium Oxide 500 mg Tablet) PO SCH (09:00)
--- NOTE | 2022-07-14 09:14 | History & Physical Bridge Note ---
Date of Service July 14, 2022 History & Physical Bridge Note I have examined the patient, reviewed the History & Physical and in the interval since the performance of the History & Physical I have noted the following changes of clinical significance: no changes noted
[2022-07-14] MEDS ORDERED: ATROPINE SULFATE 0.1 MG/ML 10ML SYR IV PRN (11:00)
[2022-07-14] MEDS ORDERED: ePHEDrine sulfate 50 MG/ML AMP IV PRN (11:00)
[2022-07-14] MEDS ORDERED: LABETALOL HCL IV 5 MG/ML 20ML IV PRN (11:00)
[2022-07-14] MEDS ORDERED: fentaNYL citrate PF 100 MCG/2 ML VIAL IV PRN (11:00)
[2022-07-14] MEDS ORDERED: PROMETHAZINE HCL 12.5 MG in SODIUM CHLORIDE 0.9% 50 ML IV PRN (11:00)
[2022-07-14] MEDS ORDERED: FLUMAZENIL 0.1 MG/1 ML 10 ML VIAL IV PRN (11:00)
[2022-07-14] MEDS ORDERED: HYDROmorphone INJ 1 MG/ML SYRINGE IV PRN (11:00)
[2022-07-14] MEDS ORDERED: NALOXONE HCL 0.4 MG/1 ML VIAL/CARP IV PRN (11:00)
[2022-07-14] MEDS ORDERED: ONDANSETRON INJ 2 MG/ML 2 ML VIAL IV PRN (11:36)
--- NOTE | 2022-07-14 11:36 | Operative Report ---
Post Operative Report Pre & Post Diagnosis Operation Date: 07/14/22 09:10 Pre-Op Diagnosis: Fracture of radius, distal, left, closed Post-Op Diagnosis: Fracture of radius, distal, left, closed I identified the patient and participated in the time-out.: Yes Procedure Operation Date: 07/14/22 09:10 Actual Procedures p Left Wrist Intra-articular Comminuted Distal Radius Fracture, Open Reduction Internal Fixation(Left) - Jean-Paul Bonilla MD Surgeon Jean-Paul Bonilla MD Fabricating Machine Operator Tianna Hoyos PA-C Estimated Blood Loss 5 Findings Consistent with Post-Op Diagnosis Specimens none Description of Procedure I was present during the entire case assisting with positioning, prepping, draping, wound retraction, wound closure, dressing and splint application. No fellow present. Please see Dr. Bonilla procedure note for specifics of the case. I attest to the content of the Intraoperative Record and any orders documented therein. Any exceptions are noted below.
--- NOTE | 2022-07-14 11:49 | Fluoroscopy Report ---
FL wrist LT 3V RTN CLINICAL HISTORY: LEFT WRIST ORIF TECHNIQUE: 3 views were obtained with the C-arm in the OR with the above procedure. Total fluoroscopy time was 12.4 seconds. Radiation dose was 0.23 mGy. Comparison: Comparison is made to forearm radiograph 07/11/2022 FINDINGS/IMPRESSION: Intraoperative images were obtained of open reduction internal fixation of the d istal radius. Please correlate with intraoperative fluoroscopy and operative report. ACT 112: Negative or not required by law. Electronically signed by: Jose Chahal M.D. 07/14/2022 11:48 AM
--- NOTE | 2022-07-14 11:52 | Anesthesiology Progress Note ---
Date of Service July 14, 2022 Anesthesia Post Procedure Vital Signs Vital Signs: Temp Pulse Pulse Pulse Resp BP BP 07/14/22 11:50 64 18 135/89 07/14/22 11:40 73 16 140/77 07/14/22 11:34 36 C L 63 14 132/77 07/14/22 09:15 36.9 C 74 18 130/66 07/14/22 06:51 65 07/14/22 03:54 59 L 16 122/69 07/13/22 23:49 64 16 114/83 07/13/22 23:25 49 L 07/13/22 23:00 37.1 C 07/13/22 21:50 97 H 17 07/13/22 21:40 56 L 15 07/13/22 21:30 88 23 07/13/22 21:20 57 L 22 07/13/22 21:10 60 21 07/13/22 21:00 56 L 20 07/13/22 20:50 84 15 07/13/22 20:40 71 22 07/13/22 20:30 60 15 07/13/22 20:20 80 17 07/13/22 20:10 85 22 07/13/22 20:00 72 20 07/13/22 19:50 99 H 20 07/13/22 19:47 86 18 07/13/22 19:46 138/88 07/13/22 19:55 90 138/88 07/13/22 19:49 92 H 07/13/22 15:07 68 20 132/70 07/13/22 14:38 36.8 C 74 18 133/62 Pulse Ox O2 Del Method O2 Flow Rate 07/14/22 11:50 98 Room Air 07/14/22 11:40 99 Oxymask 6 07/14/22 11:34 96 Oxymask 9 07/14/22 09:15 98 Room Air 07/14/22 06:51 07/14/22 03:54 94 Room Air 07/13/22 23:49 99 Room Air 07/13/22 23:25 07/13/22 23:00 07/13/22 21:50 96 07/13/22 21:40 97 07/13/22 21:30 07/13/22 21:20 07/13/22 21:10 07/13/22 21:00 07/13/22 20:50 03/22/23 20:40 07/13/22 20:30 07/13/22 20:20 07/13/22 20:10 07/13/22 20:00 07/13/22 19:50 07/13/22 19:47 99 07/13/22 19:46 07/13/22 19:55 92 Room Air 07/13/22 19:49 07/13/22 15:07 98 Room Air 07/13/22 14:38 97 Room Air Pain Intensity Left Arm: Pain Intensity: 5 Transfer of Care Handoff Completed per policy Notes Mental Status: alert / awake / arousable Patient Amnestic to Procedure: Yes Nausea / Vomiting: adequately controlled Pain: adequately controlled Airway Patency, RR, SpO2: stable & adequate BP & HR: stable & adequate Hydration State: stable & adequate Anesthetic Complications: no major complications apparent
[2022-07-14] MEDS: LACTATED RINGER'S 1,000 ML IV SCH (13:21)
[2022-07-14] MEDS: levETIRAcetam 500 MG TAB PO SCH ×2 (13:21→20:09)
--- NOTE | 2022-07-14 13:57 | Operative Report ---
Post Operative Report Pre & Post Diagnosis Operation Date: 07/14/22 09:10 Pre-Op Diagnosis: Closed, displaced, intra-articular left distal radius fracture, volar Lu pattern, involving greater than 3 fragments. Post-Op Diagnosis: Closed, displaced, intra-articular left distal radius fracture, volar Lu pattern, involving greater than 3 fragments. I identified the patient and participated in the time-out.: Yes Procedure Operation Date: 07/14/22 09:10 Actual Procedures Open Reduction Internal Fixation closed, displaced, intra-articular left distal radius fracture, volar Lu pattern, involving greater than 3 fragments. - Jean-Paul Bonilla MD Surgeon Jean-Paul Bonilla MD Fountain Clerk Tianna Hoyos PA-C. No resident or fellow was available to assist. Estimated Blood Loss 5 Findings Consistent with Post-Op Diagnosis Specimens None Anesthesia Type General Regional Complications none Disposition Disposition: Recovery Room Indications 36-year-old male, presented to the emergency room yesterday with left wrist pain following a fall onto his outstretched left wrist. He had reportedly been experiencing suicidal ideations the day of his injury and had been using marijuana, reportedly for medical purposes. On exam he was noted to have swelling and deformity in his wrist as well as an abrasion over the palm. X- rays in the emergency room yesterday demonstrated a displaced, comminuted, intra-articular, volar Lu pattern left distal radius fracture. This is an unstable pattern injury. Therefore surgery was the recommended treatment. I had a long discussion with him about the risks and benefits of surgery, alternatives to surgery, and expected outcomes. After reviewing all these he elected to proceed with surgery. All questions were answered. Informed consent was signed. He was admitted to the hospital overnight last night in preparation for surgery this morning. Description of Procedure Patient was identified in the mental health unit in the emergency room where his surgical site was marked. He was brought directly from that location to the operating room where he was placed on the operating table. A regional block was administered by anesthesia. General anesthesia was then induced. All bony prominences were padded. Perioperative antibiotics were administered. He was prepped and draped in the usual sterile fashion. A Coban was wrapped over the hand in order to cover the skin and abrasion and decrease the risk of infection. Prior to incision a multidisciplinary timeout was called. All in the room were in agreement. I began by making a 7 cm long incision starting at the distal wrist crease and moving proximally overlying the FCR tendon. I dissected down through subcutaneous tissues onto the FCR tendon. Fascia overlying the FCR was incised and the tendon was retracted ulnarly. The subsheath was then incised throughout the length of the incision. Parona space was entered. Significant amount of hematoma was encountered and was evacuated. The pronator quadratus was then reflected from radial to ulnar to expose the underlying fracture. Inspection of the fracture revealed significant displacement particularly along the ulnar side of the fracture which was shortened and displaced volarly. The fracture site was cleaned, and the fracture was reduced with a combination of traction and a dorsally directed force applied to the volarly displaced fragments. The fracture was noted to be fairly unstable and tended to easily displaced. Therefore we elected to apply the plate onto the bone to hold the fracture. We started with a wide plate however the this was just a little too wide for his bone distally. Therefore we switched this out to a standard width plate which was a perfect width. The plate was secured to the bone using K wires and we checked the location of the plate on the AP and lateral fluoroscopic views which we are very happy with. I then placed two 3.5 mm cortical screws through the proximal screw holes in order to compress the plate to the bone. 2 of the distal locking screw holes were then filled. Fluoroscopy was brought in and we checked our reduction, screw lengths, and position of the plate all of which we are very happy with. The K wires were then removed and the remaining screw holes were then filled using locking screws distally and a third 3.5 mm cortical screw proximally. Final fluoroscopic images were then obtained. Tourniquet was let down. Wound was irrigated out with copious amounts of normal saline. Meticulous hemostasis was ensured. Deep dermis was then closed with interrupted buried 3-0 Vicryl sutures. Skin was closed with 3- 0 nylon sutures in horizontal mattress fashion. Patient was then placed into a well-padded volar plaster slab splint leaving the elbow, MCP, DIP, and PIP joints free. Patient was then awoke from anesthesia and transferred to recovery room in stable condition. Postoperative course: Patient will be readmitted to the hospital under the internal medicine and psychiatry services. Orthopedics will continue to follow him while he is an inpatient. He will need to elevate his arm on pillows. Aspirin for DVT prophylaxis. No lifting with the left arm. However he should be encouraged to begin immediate finger and elbow range of motion to decrease the risk of stiffness. I attest to the content of the Intraoperative Record and any orders documented therein. Any exceptions are noted below.
--- NOTE | 2022-07-14 14:06 | Electrocardiogram Report ---
Test Reason : Blood Pressure : / mmHG Vent. Rate : 064 BPM Atrial Rate : 064 BPM P-R Int : 140 ms QRS Dur : 094 ms QT Int : 408 ms P-R-T Axes : 061 057 060 degrees QTc Int : 420 ms Normal sinus rhythm with sinus arrhythmia Normal ECG When compared with ECG of 26-JAN-2022 11:31, No significant change was found Confirmed by Dale Sotelo ([id number]) on 07/14/2022 2:06:27 PM Referred By: REFERRED SELF Confirmed By:Mark Sotelo
--- NOTE | 2022-07-14 14:18 | Neurology Consultation ---
Date of Consultation July 14, 2022 Assessment & Plan (1) Seizure disorder: (2) Seizure: (3) Cyclical vomiting: Plan 36-year-old male with a history of cyclic vomiting syndrome and seizure disorder, inpatient evaluation this past January suggested a right temporal lobe seizure focus. He has been on Keppra as an outpatient but does endorse some medication noncompliance recently. Admission records also indicate misuse of alcohol, recent suicidal ideation, ongoing use of medical marijuana. The patient apparently had a seizure episode while getting a CT of his head last night and was subsequently treated with IV lorazepam and additional levetiracetam. The above issues occur in the context of a recent distal left radius fracture for which he is now open reduction, internal fixation. I would recommend completion of an up-to-date brain MRI with and without contrast, seizure protocol to reassess the suspected right temporal lobe seizure focus which had been seen previously. Patient should continue with Keppra 1000 mg twice daily for the time being. However, this anticonvulsant could in part contribute to some mood irritability. I would therefore recommend starting lamotrigine 25 mg twice daily with intention to cross taper from Keppra to lamotrigine over the next few weeks. Would also recommend checking a Keppra level with morning labs tomorrow. History of Present Illness Reason for Consultation: History of seizures, 302 admit, seizures while admitted Requesting Physician: Alphonso Hickey PA-C Attending Physician: Yara Head DO History of Present Illness The patient is a 36-year-old male with a history of cyclic vomiting syndrome and seizures, I had initially evaluated him during a hospitalization this past January for seizure-like episode. Symptoms have been characterized by hot flashes, diaphoresis, nausea, emesis which is typical for his cyclic vomiting syndrome. However, he did have an associated syncopal event with eyes rolling back, violent shaking, episode witnessed by his mother. He smokes marijuana regularly and has been consuming red wine, also taking antihistamine. He had another similar episode with associated left-sided tongue bite. An EEG at that time revealed possible intermittent right frontotemporal sharps and slow waves. A brain MRI had revealed cortical thickening with increased T2/flair signal involving the medial right temporal lobe and hippocampus potentially consistent with a seizure focus. A 3-month follow-up brain MRI was recommended to exclude cortical dysplasia. He was seen in our clinic for a follow-up appointment February 03, 2022 with one of our extenders, Elsi Toro PA-C. Results of his evaluation including EEG and MRI were reviewed including potential right temporal lobe seizure focus. His dosage of Keppra was subsequently increased to 750 mg twice daily. An ambulatory EEG was recommended as well and completed on March 08, 2022. 24- hour study. 0 pushbutton events. Study felt to be normal. A follow-up Keppra level was obtained on February 04, 2022 and was slightly low, 4.9. The dosage was subsequently increased to 1000 mg twice daily. A follow-up Keppra level from February 21, 2022 was 13.3. The patient was seen in the emergency department yesterday afternoon for an injury to his left wrist resulting in a fracture of the distal left radius with significant intra-articular extension. It looks like there has been a 302 warrant issued on the grounds of suicidal statements. He apparently threatened to kill himself with a gun and had broken up with his girlfriend. His mother had taken away all of his firearms without him knowing. He apparently became irate not being able to find a gun and threatened to drive himself to a bridge and jump off. He was not able to find the car keys because his mother had them and was attempting to leave. The patient apparently jumped in the ferris of the car attempting to prevent her from leaving. Further review of the admission record indicates that the patient had consumed 6-8 alcoholic drinks the previous night and has been using medical marijuana. Patient's girlfriend had indicated in the medical record that they had broken up on July 08 but he had been using alcohol and drugs consistently since that time. The patient did have a CT of the head ordered during his initial evaluation. A code purple was called at that time as the patient began to exhibit seizure activity. The episode lasted approximately 30 seconds, he was treated with IV lorazepam. There is no incontinence. He was postictal. He was given 1 g of IV levetiracetam as well. The patient is a guarded historian today. He indicates that he did not have a seizure last night while getting a CAT scan. However, I did explain that seizure activity was observed by healthcare providers at that time and he was t reated with medication. He is upset about not being able to have his driving privileges reinstated. He does report experiencing olfactory and gustatory aura. I did review the results of his previous evaluations including MRI, inpatient and outpatient ambulatory EEG monitoring. He indicates that he thought his seizure disorder was ruled out given his more recent negative ambulatory EEG. Event, however, indicated that he has been taking his Keppra consistently until recently, admitting that h did not take his medication just prior to his hospitalization. He does endorse some moodiness which she potentially attributes to the levetiracetam. Psychiatry has also been consulted recently given suicidal threats. Allergies Allergy/AdvReac Type Severity Reaction Status Date / Time Sulfa (Sulfonamide Allergy Unknown "SULFA = Verified 07/13/22 16:49 Antibiotics) UNSURE OF REACTION" Home Medications Medication Instructions Recorded Confirmed Type K-99 Mix A Pro 1 dose PO DAILY 01/26/22 07/13/22 History Selicore Binder 1 dose PO DAILY 01/26/22 07/13/22 History cetirizine 10 mg tablet (Zyrtec) 10 mg PO DAILY PRN Congestion 01/26/22 07/13/22 History cod liver oil 1 cap PO DAILY 01/26/22 07/13/22 History coenzyme Q10 100 mg capsule 200 mg PO DAILY 01/26/22 07/13/22 History (CoQ-10) magnesium oxide 500 mg tablet 500 mg PO DAILY 01/26/22 07/13/22 History betaine-minerals capsule 1 cap PO DAILY 02/03/22 07/13/22 History levetiracetam 1,000 mg tablet 1,000 mg PO BID #60 tabs 02/09/22 07/13/22 Rx (Keppra) levocarnitine 500 mg capsule 1,000 mg PO DAILY 07/13/22 07/13/22 History (L-Carnitine) Patient History Medical History (Updated 07/14/22 @ 14:36 by Logan Hernandez MD) ADD (attention deficit disorder) Anxiety Cyclical vomiting Depression OCD (obsessive compulsive disorder) Overdose (05/28/14) Seizure-like activity Seizures Seizures Suicidal ideation Surgical History No significant past surgical history Family History Father Mother Skin cancer Other No significant family history Denies family history of Ovarian cancer Prostate cancer Myocardial infarction Breast cancer Lung cancer Colorectal cancer Hypertension Social History Smoking Status: Former smoker Tobacco Type: Cigarettes Age Started Using Tobacco: 17; Age Quit Using Tobacco: 33; packs per day: 1; Second Hand Exposure: No; Hx Alcohol Use: Yes Alcohol type: wine Hx Substance Use: Yes Prescribed Medications: Marijuana Last Used Substance: Days (ago) Preferred Language: Bulgarian Communication Ability: Effective Visual Impairment: Limited Hearing Ability: Normal Senior Sql Database Developer Required: No Beliefs That Will Affect Care: None marital status: Single Current Living Situation: Parent current occupational status: employed 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 Feels Safe at Home: No Is there a partner from a previous relationship who is making you feel unsafe now?: No Childhood Exposure to Second-Hand Smoke: Yes Diet Comment: organic caffeine: Yes Dental Care, Regularly: Yes Physical Activity Frequency: 5-6 Times per Week Physical Activity Frequency Comment: run, cross country skiing weights and cardio Seatbelt Use: always Sunscreen Use: No Assistive Devices: Glasses Review of Systems Constitutional: no fever and no chills Eyes: no blind spots and no diplopia Ear, Nose, Mouth, Throat: no hearing loss Respiratory: no cough and no dyspnea Cardiovascular: no chest pain and no palpitations Gastrointestinal: as per Subjective / HPI, + nausea and + vomiting Genitourinary: no dysuria or no urinary incontinence Musculoskeletal: as per Subjective / HPI and + joint pain (Left wrist pain, currently status post surgery to address distal radius fracture) Integumentary: no rash and no lesions Neurologic: as per Subjective / HPI Psychiatric: as per Subjective / HPI and + irritability Hematologic / Lymphatic: no easy bleeding and no easy bruising Exam (Neuro) Constitutional: well developed; no acute distress Eyes: normal visual caba by confrontation, PERRL and EOM intact bilaterally; no papilledema Cardiovascular: Vessels: no carotid bruit Neurologic: Oriented to:: Person, Place and Time Memory: Short Term Intact and Remote Intact Attention: Span Intact and Concentration Intact Speech Fluency: negative Dysarthria or Dysfluency Speech Aphasia: negative Aphasia Fund of Knowledge: Current Events, Past History and Vocabulary Cranial Nerves: Normal II, III, IV, , V, VII, VIII, IX, X, XI and XII Motor St rength: Normal Lower Extremities and Normal Upper Extremities (Evaluation of distal left upper extremity limited is currently postsurgical with dressing and splint) Motor Tone: Normal Lower Extremities and Normal Upper Extremities Muscle Bulk/Involuntary Movements: No Involuntary Movements; negative Muscle Atrophy Sensation: Light Touch Intact, Pain/Temperature Intact, Vibration Intact and Proprioception Intact Coordination: Normal; negative Finger-Nose Abnormal or Heel-Pearson Abnormal Deep Tendon Reflexes: Rt Triceps: 2+, Lt Triceps: 2+, Rt Biceps: 2+, Lt Biceps: 2+, Rt Brachioradialis: 2+, Lt Brachioradialis: 2+, Rt Patellar: 2+, Lt Patellar: 2+, Rt Ankle: 2+ and Lt Ankle: 2+ Details: Gait cannot be tested Results & Data Vital Signs (Past 12 Hours) Vital Signs Temp Pulse Pulse Resp BP Pulse Ox O2 Del Method 07/14/22 12:15 36.9 C 77 24 142/73 H 97 Room Air 07/14/22 12:00 36.3 C L 65 20 131/80 97 Room Air 07/14/22 11:50 64 18 135/89 98 Room Air 07/14/22 11:40 73 16 140/77 99 Oxymask 07/14/22 11:34 36 C L 63 14 132/77 96 Oxymask 07/14/22 09:15 36.9 C 74 18 130/66 98 Room Air 07/14/22 06:51 65 07/14/22 03:54 59 L 16 122/69 94 Room Air O2 Flow Rate 07/14/22 12:15 07/14/22 12:00 07/14/22 11:50 07/14/22 11:40 6 07/14/22 11:34 9 07/14/22 09:15 07/14/22 06:51 07/14/22 03:54 Laboratory Results WBC 10.36, hemoglobin 13.5, hematocrit 37.9, platelet count 200, sodium 135, potassium 4.3, BUN 16, creatinine 0.73, glucose 108, calcium 9.3, AST 29, ALT 21, TSH 2.862, urine drug screen positive for marijuana Diagnostic Findings CT of the head completed yesterday negative for hemorrhage or acute process. I independently reviewed these images and agree with these findings as described by the interpreting radiologist. I did re review the images pertaining to the previous brain MRI that had been completed this past January as well. There is an area of increased T2/flair signal within the right mesial temporal lobe/hippocampal region, potentially consistent with cortical thickening or seizure focus in this area. There is no associated abnormal postcontrast enhancement. Previous EEG findings are as described in the HPI. An electrocardiogram completed yesterday revealed a normal sinus rhythm, 64 bpm. PG Care Time/CCT Total # of Minutes Spent Total Time Spent with Patient: Total time spent is greater than 50% in coordination of care (as documented) at patient's floor/unit and/or counseling patient: Coding Level of Care Code 08674 INT INP/OBS CARE MIN Diagnoses Seizure disorder G40.909 Seizure R56.9 Cyclical vomiting G43.A0
[2022-07-14] MEDS ORDERED: LORazepam 0.5 MG TAB PO STA (15:43)
[2022-07-14] MEDS: oxyCODONE/ACETAMINOPHEN 5mg/325mg TAB PO PRN ×2 (16:08→20:10)
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
[2022-07-14] MEDS ORDERED: GADOBUTROL 65ML VIAL IV ONE (17:01)
[2022-07-14] MEDS ORDERED: ceFAZolin 2000MG 2,000 MG/15 ML SYR IV ONE (18:00)
--- NOTE | 2022-07-14 20:07 | Magnetic Resonance Report ---
Brain MRI WITH AND WITHOUT CONTRAST HISTORY: seizure, right temporal lobe abnormality on prior MRI TECHNIQUE: Multiplanar multisequence MRI of the brain was performed both before and after the intrave nous administration of contrast. COMPARISON STUDY: Head CT 07/13/2022. Brain MRI 01/26/2022. FINDINGS: There are no areas of restricted diffusion to suggest acute infarction. The midline structu res are intact. The paranasal sinuses are clear. The mastoid air cells are clear. The ventricles and sulci are within normal limits for age. There is no mass, hematoma, midline shift. The major vascular flow-voids at the skull base are well maintained. Postcontrast sequences show no areas of abnormal e nhancement. There is again noted increased T2 signal within the medial right temporal lobe/hippocampu s. There is also suggestion of mild atrophy of the hippocampus which is new from the prior study. The associated cortical thickening of the medial right temporal lobe seen on the prior study has improve d/resolved. IMPRESSION: 1. No acute infarct or intracranial hemorrhage. 2. Redemonstration of the abnormal signal within the medial right temporal lobe which now demonstrate s mild hippocampal atrophy. 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 ACT 112: Negative or not required by law. Electronically signed by: Hermann Mckeon M.D. 07/14/2022 8:05 PM
[2022-07-14] MEDS: lamoTRIgine 25 MG TAB PO SCH (20:09)
[2022-07-14] MEDS: LORazepam 0.5 MG TAB PO PRN (20:10)
[2022-07-14] MEDS: MELATONIN 3 MG TAB PO PRN (23:20)
[2022-07-14] MEDS: ACETAMINOPHEN 325 MG TAB PO PRN (23:21)
[2022-07-15] MEDS: oxyCODONE/ACETAMINOPHEN 5mg/325mg TAB PO PRN ×3 (00:12→09:19)
[2022-07-15] MEDS: LORazepam 0.5 MG TAB PO PRN ×5 (00:12→22:58)
[2022-07-15 06:10] LABS: Hematocrit (blood only) 38.1 % (42.0-52.0); Hemoglobin 13.3 g/dl (14.0-18.0); Mean Corpuscular Hemoglobin 33.2 pg (25.0-34.0); Mean Corpuscular Hgb Conc 34.9 g/dL (32.0-36.0); Mean Platelet Volume 9.8 fL (9.4-12.4); Platelet Count 205 K/uL (130-400); RDW Coefficient of Variation 12.4 % (11.5-14.5); RDW Standard Deviation 43.4 fL (36.4-46.3); Red Blood Count 4.01 M/uL (4.70-6.10); White Blood Count 11.83 K/ul (4.8-10.8)
[2022-07-15 06:24] LABS: Albumin Globulin Ratio 1.6 (0.9-2); Albumin Level 4.4 gm/dl (3.4-5.0); BUN Creatinine Ratio 17.9 (10-20); Bilirubin,Total 1.7 mg/dl (0.2-1.0); Calcium 9.5 mg/dl (8.6-10.3); Est GFR (African American) 131.5 ml/min; Est GFR (Non-African American) 113.4 ml/min; Globulin 2.7 gm/dl (2.5-4.0); Potassium 3.8 mmol/L (3.5-5.1); Total Protein 7.1 gm/dl (6.0-8.3)
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
[2022-07-15] MEDS: levETIRAcetam 500 MG TAB PO SCH ×2 (09:11→22:12)
[2022-07-15] MEDS: lamoTRIgine 25 MG TAB PO SCH ×2 (09:11→22:12)
[2022-07-15] MEDS: MAGNESIUM OXIDE 400 MG TAB PO SCH (09:19)
--- NOTE | 2022-07-15 09:52 | Orthopedic Progress Note ---
Date of Service July 15, 2022 Assessment & Plan (1) Closed fracture of left wrist: Plan: Patient is postop day 1 status post a left wrist ORIF. Patient will remain in splint. Keep splint clean and dry. Encouraged to continue to flex and extend digits and move elbow as tolerated. Advised patient on elevating the left upper extremity on a pillow and her blankets which ever is more comfortable. Did encourage use of ice and this was requested to be applied frequently. Recommend no pushing pulling or lifting with the left upper extremity. Discussed with nurse pain control. Per nurse he always answers is 8 out of 10 regardless of when he gets his medications. I would defer to primary team for pain management. Patient will need to follow-up in our office in 2 weeks. Present on Admission?: Yes Admission and Anticipated Discharge Date Admission Date: July 13, 2022 Subjective Patient is a 36-year-old [id number] male who is being seen this morning bedside. MANAGER SOCIAL MEDIA is present sitting in chair during his visit. He is sleeping however he is easily aroused. He is postop day 1 status post a left wrist ORIF with Dr. Heller off. He reports his pain is 8/10 in the wrist. He states he has been elevating it however he has the left upper extremity resting on his side. He states he has some tingling in his fingers denies any change of temperature in the fingers. He states he is moving the fingers and elbow without any discomfort or difficulty. He is getting narcotic last dose of narcotic was at 5:30 AM. He denies any fever, chills, chest pain or shortness of breath. Review of Systems Review of Systems: Please refer to HPI Physical Exam Physical Exam: General: Patient is sleeping however he is easily aroused. He is alert and oriented x3 no acute distress seems disinterested Musculoskeletal/integumentary: Left upper extremity has volar splint. This is in place. Fingers are exposed able to freely flex and extend digits. He is able to flex and extend the elbow. Able to supinate forearm however this is limited which is to be anticipated. He has full pronation. Sensation is intact over all digits. Capillary refills less than 2 seconds. Left upper extremity with elevated on blanket and ice pack was requested to place on the left upper extremity Results & Data Vital Signs (Past 12 Hours) Vital Signs Temp Pulse Pulse Pulse Resp BP Pulse Ox 03/24/23 06:53 37.1 C 60 13 117/71 96 07/15/22 03:59 37.3 C 64 20 120/68 95 07/14/22 23:34 37.0 C 59 L 20 128/74 95 07/14/22 23:12 63 O2 Del Method 07/15/22 06:53 Room Air 07/15/22 03:59 Room Air 07/14/22 23:34 Room Air 07/14/22 23:12 Laboratory Results 07/15/22 07/15/22 07/15/22 Range/Units 05:48 05:48 05:48 WBC 11.83 H (4.8-10.8) K/ul RBC 4.01 L (4.70-6.10) M/uL Hgb 13.3 L (14.0-18.0) g/dl Hct 38.1 L (42.0-52.0) % MCV 95.0 (80.0-100.0) fL MCH 33.2 (25.0-34.0) pg MCHC 34.9 (32.0-36.0) g/dL RDW Std Deviation 43.4 (36.4-46.3) fL RDW Coeff of Debbie 12.4 (11.5-14.5) % Plt Count 205 (130-400) K/uL MPV 9.8 (9.4-12.4) fL Sodium 138 (136-145) mmol/L Potassium 3.8 (3.5-5.1) mmol/L Chloride 103 (98-107) mmol/L Carbon Dioxide 27 (21-32) mmol/L Anion Gap 8 (3-11) BUN 15 (6-23) mg/dl Creatinine 0.84 (0.6-1.4) mg/dl Est Cr Clr Drug Dosing 105.0 ml/min Est GFR ( Amer) 131.5 ml/min Est GFR (Non-Af Amer) 113.4 ml/min BUN/Creatinine Ratio 17.9 (10-20) Glucose 112 H (70-99(Fasting)) mg/dl Calcium 9.5 (8.6-10.3) mg/dl Total Bilirubin 1.7 H (0.2-1.0) mg/dl AST 28 (13-39) U/L ALT 20 (7-52) U/L Alkaline Phosphatase 42 (34-104) U/L Total Protein 7.1 (6.0-8.3) gm/dl Albumin 4.4 (3.4-5.0) gm/dl Globulin 2.7 (2.5-4.0) gm/dl Albumin/Globulin Ratio 1.6 (0.9-2) Levetiracetam Pending Diagnostic Findings Wrist X-Ray 07/14/22 00:00 FL wrist LT 3V RTN CLINICAL HISTORY: LEFT WRIST ORIF TECHNIQUE: 3 views were obtained with the C-arm in the OR with the above procedure. Total fluoroscopy time was 12.4 seconds. Radiation dose was 0.23 mGy. Comparison: Comparison is made to forearm radiograph 07/11/2022 FINDINGS/IMPRESSION: Intraoperative images were obtained of open reduction internal fixation of the distal radius. Please correlate with intraoperative fluoroscopy and operative report. ACT 112: Negative or not required by law. Electronically signed by: Jose Chahal M.D. 07/14/2022 11:48 AM Brain MRI 07/14/22 14:45 Brain MRI WITH AND WITHOUT CONTRAST HISTORY: seizure, right temporal lobe abnormality on prior MRI TECHNIQUE: Multiplanar multisequence MRI of the brain was performed both before and after the intravenous administration of contrast. COMPARISON STUDY: Head CT 07/13/2022. Brain MRI 01/26/2022. FINDINGS: There are no areas of restricted diffusion to suggest acute infarction. The midline structures are intact. The paranasal sinuses are clear. The mastoid air cells are clear. The ventricles and sulci are within normal limits for age. There is no mass, hematoma, midline shift. The major vascular flow-voids at the skull base are well maintained. Postcontrast sequences show no areas of abnormal enhancement. There is again noted increased T2 signal within the medial right temporal lobe/hippocampus. There is also suggestion of mild atrophy of the hippocampus which is new from the prior study. The associated cortical thickening of the medial right temporal lobe seen on the prior study has improved/resolved. IMPRESSION: 1. No acute infarct or intracranial hemorrhage. 2. Redemonstration of the abnormal signal within the medial right temporal lobe which now demonstrates mild hippocampal atrophy. 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 ACT 112: Negative or not required by law. Electronically signed by: Hermann Mckeon M.D. 07/14/2022 8:05 PM
--- NOTE | 2022-07-15 12:49 | Psychiatric Progress Note ---
Date of Service July 15, 2022 Impression / Recommendations Impression This is a 36 yo admitted medically following a wrist injury sustained during an episode of intoxication during which he made multiple statements of suicidal ideation with plans of shooting himself or jumping from a bridge in the context of a recent breakup. Diagnostically consistent with unspecified mood changes with differential including MDD versus substance-induced vs adjustment disorder with depressed mood versus medication effects from Keppra in the context of recent stressors including breakup, new diagnosis of seizure disorder this summer limiting driving ability and of his father by suicide last year. Acute risk of self-harm remains elevated and high given concerning suicidal statements reported prior to admission, minimization of events leading to hospitalization, impulsivity, social isolation, irritability, limited insight, substance use. Given elevated risk of harm to self they meet criteria for inpatient psychiatric care for diagnostic clarification, safety/stabilization, development of additional coping skills, medication management and disposition/safety planning. He is agreeable at this time for voluntary treatment. If he changes his mind he would meet criteria for 302 status based on high risk of self-harm, lack of outpatient providers and ongoing modifiable risk factors. 07/15/2022: Ongoing minimization of events but more accepting of treatment discussions and hopeful he can be placed at the [facility] as he prefers a smoking facility. Bed search continues. Remains in need of inpatient psychiatric hospitalization. He verbally revoked MELECIO for his mother (1) Depression: (2) Seizure disorder: (3) Closed fracture of left wrist: (4) Alcohol use: Plan -Continue 1-on-1 for risk of harm to self -Voluntary for inpt psych treatment, psych liason continuing with bed search -Do not discharge or allow to leave AMA, call psych liason if he attempts to do so as he would meet 302 criteria -Neurology recommended cross-taper from Keppra to Lamictal which has been started in case this has contributed to mood irritability Interval History Identifying Information 36 yo man with history of depression and seizures (on Keppra) admitted medically following left wrist injury and s/p surgical reduction now in cast. Psychiatry consulted for risk assessment and recommendations. Chief Complaint "I'm doing fine". Review of Systems Notes stable sleep, stable appetite Subjective Subjective Patient was seen & assessed and interval progress reviewed with treatment team. He reports his mood is "fine". He slept "ok". He declined [facility] due to it's distance. He'd prefer the [facility], reviewed that they declined this morning given concerns for his need for oxycodone for pain. He states "I want to go to the [facility], I can be done with the oxycodone if that's what they need, I won't take anymore of it". Discussed goal to allow him to continue to receive medications for pain and that bed search will continue but he states preference for [facility] when they re-review (which they agreed to do). Discussed that psych liason got phone call from his mother expressing option for him to go to [place] to receive treatment that family would pay for. He states he would prefer [facility] over going to [place] and asked that we not speak with anyone who states they are his mother as he thinks his sister has been impersonating his mom so that his mom doesn't have to worry about dealing with phone calls. Continues to deny any substance use that would explain why his family was discussing involving a professional flag maker and treatment facility in [place]. He then asks to sleep and requests we leave. Procedures Performed Operation Date: 07/14/22 09:10 Actual Procedures p Left Wrist Intra-articular Comminuted Distal Radius Fracture, Open Reduction Internal Fixation(Left) - Jean-Paul Bonilla MD Physical Exam Psychiatric Orientation: alert and oriented x 3 Apperance: appropriately dressed and appropriately groomed Eye Contact: + fair eye contact Motor Behavior: no abnormal motor movements Speech: normal rate/rhythm/volume of speech Affect: + depressed affect and + anxious affect Mood: + depressed mood and + anxious mood Thought Process: clear/coherent thought process Thought Content: reality based without delusions Suicidal Thoughts: denies suicidal thoughts (but collateral from 302 notes multiple recent statements), denies suicidal plan and denies suicidal intent Homicidal Thoughts: denies homicidal thoughts Hallucinations: no auditory hallucinations and no visual hallucinations Cognition: recent memory grossly intact, remote memory grossly intact, attention grossly intact and language grossly intact Estimated Intelligence: consistent with education level Insight: + limited insight Judgment: + limited judgement Vital Signs (Past 24 Hours) Last Vital Signs Temp 36.7 C 07/15/22 11:33 Pulse 52 L 07/15/22 11:33 Resp 14 07/15/22 11:33 BP 129/72 07/15/22 11:33 Pulse Ox 96 07/15/22 11:33 O2 Del Method Room Air 07/15/22 11:33 O2 Flow Rate 6 07/14/22 11:40 Results & Data ([facility]) Laboratory Results Laboratory Results - last 24 hr 07/15/22 07/15/22 07/15/22 05:48 05:48 05:48 WBC 11.83 H RBC 4.01 L Hgb 13.3 L Hct 38.1 L MCV 95.0 MCH 33.2 MCHC 34.9 RDW Std Deviation 43.4 RDW Coeff of Debbie 12.4 Plt Count 205 MPV 9.8 Sodium 138 Potassium 3.8 Chloride 103 Carbon Dioxide 27 Anion Gap 8 BUN 15 Creatinine 0.84 Est Cr Clr Drug Dosing 105.0 Est GFR ( Amer) 131.5 Est GFR (Non-Af Amer) 113.4 BUN/Creatinine Ratio 17.9 Glucose 112 H Calcium 9.5 Total Bilirubin 1.7 H AST 28 ALT 20 Alkaline Phosphatase 42 Total Protein 7.1 Albumin 4.4 Globulin 2.7 Albumin/Globulin Ratio 1.6 Levetiracetam Pending Current Inpatient Medications Current Inpatient Medications: Current Inpatient Medications Acetaminophen (Acetaminophen 325 Mg Tab) 650 mg PO Q6H PRN PRN Reason: Fever or Headache Stop: 08/12/22 17:09 Last Admin: 07/14/22 23:21 Dose: 650 mg Al Hydrox/Mg Hydrox/Simethicone (Aluminum/Magnesium Susp 30 Ml Udc) 30 ml PO Q6H PRN PRN Reason: Dyspepsia Stop: 08/12/22 17:09 Diphenhydramine HCl (Diphenhydramine 50 Mg/Ml Vial) 25 mg IV Q8H PRN PRN Reason: Itching Stop: 08/12/22 17:09 Sodium Chloride (Nss 1000ml) 1,000 mls @ 0 mls/hr IV .Q0M VIKTOR Stop: 08/12/22 17:14 Lamotrigine (Lamotrigine 25 Mg Tab) 25 mg PO BID VIKTOR Stop: 08/13/22 20:59 Last Admin: 07/15/22 09:11 Dose: 25 mg Levetiracetam (Levetiracetam 500 Mg Tab) 1,000 mg PO BID VIKTOR Stop: 08/13/22 08:59 Last Admin: 07/15/22 09:11 Dose: 1,000 mg Lorazepam (Lorazepam 2 Mg/1 Ml Vial) 2 mg IV Q8H PRN PRN Reason: Seizure lasting 4 min or more Stop: 08/12/22 20:32 Lorazepam (Lorazepam 0.5 Mg Tab) 0.5 mg PO Q4H PRN PRN Reason: Anxiety/Agitation Stop: 08/13/22 18:35 Last Admin: 07/15/22 05:21 Dose: 0.5 mg Magnesium Hydroxide (Magnesium Hydroxide Susp 30 Ml Udc) 30 ml PO Q6H PRN PRN Reason: Constipation Stop: 08/12/22 17:09 Magnesium Oxide (Magnesium Oxide 400 Mg Tab) 400 mg PO QAM VIKTOR Stop: 08/14/22 08:59 Last Admin: 07/15/22 09:19 Dose: 400 mg Melatonin (Melatonin 3 Mg Tab) 6 mg PO HS PRN PRN Reason: Sleep Stop: 08/13/22 18:51 Last Admin: 07/14/22 23:20 Dose: 6 mg Metoclopramide HCl (Metoclopramide Hcl Inj 5 Mg/Ml 2 Ml Vial) 10 mg IV Q6H PRN PRN Reason: Nausea/Vomiting Stop: 08/12/22 17:09 Ondansetron HCl (Ondansetron Inj 2 Mg/Ml 2 Ml Vial) 4 mg IV Q6H PRN PRN Reason: Nausea/Vomiting Stop: 08/12/22 17:09
[2022-07-15] MEDS: ACETAMINOPHEN 325 MG TAB PO PRN ×2 (15:19→22:13)
--- NOTE | 2022-07-15 15:23 | Neurology Progress Note ---
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 Patient had another partial seizure activity on this admission. Recommendations/plan: As suggested by Dr. Hernandez, we will keep the patient on Keppra without change of dosage, with new antiepileptic medication, lamotrigine, 25 mg twice a day. The plan is switching patient from Keppra to lamotrigine due to reported irritability, and mood changes, which can be partially secondary to levetiracetam. The patient should not drive motor vehicles until getting clearance from outpatient neurology. The patient should be followed by Dr. Hernandez, in neurology clinic as suggested before. Other seizure precautions are fully explained to patient. Please recontact with neurology in case of recurrence of seizures or new neurological issues. Otherwise, we will sign off. (2) Seizure: (3) Cyclical vomiting: Plan As seen above. Admission and Anticipated Discharge Date Admission Date: July 13, 2022 Subjective The patient has been stable neurologically, without any seizure or seizure-like activities since yesterday. He had left forearm surgery with plate placement. Pain level is very low. The patient denies any suicidal ideation. He has been followed by behavioral health. The patient has understood driving restrictions, and importance of avoidance from alcohol and other recreational drugs, as well as importance of compliance on antiepileptic medications. Review of Systems Review of Systems: All systems reviewed & are unremarkable except as noted in Subjective Physical Exam Physical Exam: General Examination: Constitutional: Well developed person in no acute distress. HENT: Normal exam with inspection. CV: Hearth rhythm is regular. Neck: Supple, no carotid bruits. Lungs: Non-labored and comfortable breathing. Abdomen: Soft, non-tender, non-distended. Skin: No rash or ecchymosis. Extremities: No edema or cyanosis. Left forearm is in cast. NEUROLOGICAL EXAMINATION: Mental Status: Alert and oriented to place, person and time. Cranial Nerves: II-XII are intact. No nystagmus. Funduscopy: Normal looking optic discs. Motor: 5/5 in all extremities without asymmetry. Tone: Normal without spasticity or rigidity. Sensory: Intact to all sensory modalities. Left forearm exam is limited due to Cast. Coordination: No dysmetria with FTN testing. Speech: Fluent. Comprehension is intact. Gait: Not assessed Musculoskeletal: Normal muscle bulk, no atrophy. Results & Data Vital Signs (Past 12 Hours) Vital Signs Temp Pulse Pulse Resp BP Pulse Ox O2 Del Method 07/15/22 11:33 36.7 C 52 L 14 129/72 96 Room Air 07/15/22 06:53 37.1 C 60 13 117/71 96 Room Air 07/15/22 03:59 37.3 C 64 20 120/68 95 Room Air Laboratory Results Laboratory Results - last 24 hr 07/15/22 07/15/22 07/15/22 05:48 05:48 05:48 WBC 11.83 H RBC 4.01 L Hgb 13.3 L Hct 38.1 L MCV 95.0 MCH 33.2 MCHC 34.9 RDW Std Deviation 43.4 RDW Coeff of Debbie 12.4 Plt Count 205 MPV 9.8 Sodium 138 Potassium 3.8 Chloride 103 Carbon Dioxide 27 Anion Gap 8 BUN 15 Creatinine 0.84 Est Cr Clr Drug Dosing 105.0 Est GFR ( Amer) 131.5 Est GFR (Non-Af Amer) 113.4 BUN/Creatinine Ratio 17.9 Glucose 112 H Calcium 9.5 Total Bilirubin 1.7 H AST 28 ALT 20 Alkaline Phosphatase 42 Total Protein 7.1 Albumin 4.4 Globulin 2.7 Albumin/Globulin Ratio 1.6 Levetiracetam Pending Diagnostic Findings Forearm X-Ray 07/13/22 14:44 XR forearm LT 2V CLINICAL HISTORY: Fall, L hand, wrist and forearm pain TECHNIQUE: 2 views of the left forearm were obtained. Comparison: None available at the time of this dictation. FINDINGS: There is an acute comminuted fracture of the distal radius with intra-articular extension. No ulnar fracture is seen. Joint spaces are well-preserved. Soft tissue swelling is seen. IMPRESSION: Comminuted fracture of the distal radius with intra-articular extension and associated soft tissue swelling. ACT 112: Negative or not required by law. Electronically signed by: Jose Chahal M.D. 07/13/2022 3:47 PM Hand X-Ray 07/13/22 14:44 XR hand LT min 3V routine CLINICAL HISTORY: Fall, L hand, wrist and forearm pain COMPARISON: None FINDINGS: Note is made of an acute comminuted displaced distal left radial fracture with intra-articular extension. Fracture displacement and intra- articular extension is best depicted on lateral projection. No acute fracture within the left hand is noted. Carpal bones appear intact. There is wrist soft tissue swelling. IMPRESSION: 1. Acute comminuted displaced distal left radial fracture with significant intra-articular extension, best depicted on lateral projection. 2. No additional fractures. ACT 112: Negative or not required by law. Electronically signed by: Faizan Dougherty M.D. 07/13/2022 3:44 PM Wrist X-Ray 07/13/22 14:44 LEFT WRIST 3 VIEWS CLINICAL HISTORY: Left wrist injury. FINDINGS: 3 views of the left wrist are obtained. No prior studies are available for comparison at the time of dictation. The skeletal structures are well- mineralized. There is impacted and comminuted fracture of the distal radial metaphysis with intra-articular extension and apex dorsal angulation. There are depressed fragments at the articular surface. Additional anteriorly displaced fragments are noted. There is overlying soft tissue edema. The distal ulna is intact. No additional fracture is identified. IMPRESSION: Intra-articular fracture of the distal radius as detailed above. Electronically signed by: Justin Perez M.D. 07/13/2022 3:[address] 07/13/22 18:43 Exam(s): CT HEAD Without Contrast EXAM: CT Head Without Intravenous Contrast CLINICAL HISTORY: Reason for exam: fall, AMS. TECHNIQUE: Axial computed tomography images of the head/brain without intravenous contrast. CTDI is 54.84 mGy and DLP is 884.08 mGy-cm. Automated exposure control was utilized for the study. A dose lowering technique was utilized adhering to the principles of ALARA. COMPARISON: MRI brain on 01/26/[address] head on 01/25/2022. FINDINGS: Brain: No acute infarct or hemorrhage. No extra-axial fluid collection. No mass effect or midline shift. Ventricles and sulci: Normal. No ventriculomegaly or intraventricular hemorrhage. Bones: Normal. No bony lesion or acute fracture. Subcutaneous tissues: Normal. Sinuses: Normal. No air-fluid levels or mucosal thickening. Mastoid air cells: Normal. Orbits: Grossly unremarkable. IMPRESSION: No acute intracranial abnormality. Electronically signed by: Ronna Zimmer M.D. 07/13/22 19:51 PM Wrist X-Ray 07/14/22 00:00 FL wrist LT 3V RTN CLINICAL HISTORY: LEFT WRIST ORIF TECHNIQUE: 3 views were obtained with the C-arm in the OR with the above procedure. Total fluoroscopy time was 12.4 seconds. Radiation dose was 0.23 mGy. Comparison: Comparison is made to forearm radiograph 07/11/2022 FINDINGS/IMPRESSION: Intraoperative images were obtained of open reduction internal fixation of the distal radius. Please correlate with intraoperative fluoroscopy and operative report. ACT 112: Negative or not required by law. Electronically signed by: Jose Chahal M.D. 07/14/2022 11:48 AM Brain MRI 07/14/22 14:45 Brain MRI WITH AND WITHOUT CONTRAST HISTORY: seizure, right temporal lobe abnormality on prior MRI TECHNIQUE: Multiplanar multisequence MRI of the brain was performed both before and after the intravenous administration of contrast. COMPARISON STUDY: Head CT 07/13/2022. Brain MRI 01/26/2022. FINDINGS: There are no areas of restricted diffusion to suggest acute infarction. The midline structures are intact. The paranasal sinuses are clear. The mastoid air cells are clear. The ventricles and sulci are within normal limits for age. There is no mass, hematoma, midline shift. The major vascular flow-voids at the skull base are well maintained. Postcontrast sequences show no areas of abnormal enhancement. There is again noted increased T2 signal within the medial right temporal lobe/hippocampus. There is also suggestion of mild atrophy of the hippocampus which is new from the prior study. The associated cortical thickening of the medial right temporal lobe seen on the prior study has improved/resolved. IMPRESSION: 1. No acute infarct or intracranial hemorrhage. 2. Redemonstration of the abnormal signal within the medial right temporal lobe which now demonstrates mild hippocampal atrophy. 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 ACT 112: Negative or not required by law. Electronically signed by: Hermann Mckeon M.D. 07/14/2022 8:05 PM
[2022-07-15] MEDS: MELATONIN 3 MG TAB PO PRN (22:58)
[2022-07-16] MEDS: IBUPROFEN 600 MG TAB PO PRN ×3 (03:32→19:07)
[2022-07-16] MEDS: LORazepam 0.5 MG TAB PO PRN ×4 (03:32→22:55)
[2022-07-16 06:07] LABS: Hematocrit (blood only) 39.9 % (42.0-52.0); Hemoglobin 13.8 g/dl (14.0-18.0); Mean Corpuscular Hemoglobin 33.2 pg (25.0-34.0); Mean Corpuscular Hgb Conc 34.6 g/dL (32.0-36.0); Mean Corpuscular Volume 95.9 fL (80.0-100.0); Mean Platelet Volume 10.1 fL (9.4-12.4); Platelet Count 219 K/uL (130-400); RDW Coefficient of Variation 12.1 % (11.5-14.5); RDW Standard Deviation 42.5 fL (36.4-46.3); Red Blood Count 4.16 M/uL (4.70-6.10); White Blood Count 9.43 K/ul (4.8-10.8)
[2022-07-16 06:32] LABS: Albumin Globulin Ratio 1.4 (0.9-2); Albumin Level 4.4 gm/dl (3.4-5.0); BUN Creatinine Ratio 21.3 (10-20); Bilirubin,Total 1.6 mg/dl (0.2-1.0); Calcium 9.7 mg/dl (8.6-10.3); Creatinine Clr Calc Pharmacy 99.5 ml/min; Est GFR (African American) 128.4 ml/min; Est GFR (Non-African American) 110.8 ml/min; Globulin 3.2 gm/dl (2.5-4.0); Potassium 3.7 mmol/L (3.5-5.1); Total Protein 7.6 gm/dl (6.0-8.3)
--- NOTE | 2022-07-16 07:01 | Hospitalist Progress Note ---
Date of Service July 16, 2022 Assessment & Plan (1) Closed fracture of left wrist: Plan: 36 y/o male w/ PMHx of epilepsy, anxiety, admitted for surgical repair of left wrist fracture. Now admitted for medical management w/ voluntary stay for suicidal ideation/intent; per psychiatry, converts to 302 involuntary if decides to leave. Closed fracture of left wrist - Now s/p ORIF 07/14/22. Medically cleared postop by orthopedic surgery. Wearing cast. - Pain control: Tylenol. Percocet discontinued. Epilepsy - Patient of Dr. Logan Hernandez. Takes Keppra 1000 mg twice daily at home. - 07/14/22 brain MRI w/ redemonstration of likelymesial temporal sclerosis which would be consistent w/ epilepsy. - Poor compliance due to patient's reportedly poor tolerance. Plan to cross taper from Keppra to lamotrigine over the next few weeks. - Continue Keppra 1000 mg twice daily - Starting lamotrigine 25 mg p.o. twice daily. - A.m. Keppra level - Lamotrigine cross taper d/t concern for a/w suicidal ideations Suicidal ideation - Voluntary petition evaluated by psychiatry due to aforementioned events (see HPI, H&P document on admission). - Awaiting [facility] at [facility]. If no placement, possible transfer to behavioral health unit. - One-on-one sitter and suicidal precautions/checks ordered. - Consult psych liaison if patient attempts to leave AMA, as 302 criteria still in effect. Patient will then be converted to involuntary status. - Patient accepted to [facility], patient declined d/t distance, notes that he prefers to be within 1 hour of [place] for treatment - Patient noted that sister has been impersonating his mother and calling regarding his care, patient requested information not be shared with his sister any longer Low grade temperature elevation - 37.6C evening of 07/15/22. Follow clinically. If reoccurs, consider further workup. Anxiety - P.o. Ativan 0.5 mg every 4 hours as needed. Insomnia - Melatonin 6 mg p.o. as needed. diet: gluten-free. safe tray ppx: REINALDO stocking ordered; check compliance vs change to SCDs. ambulate prn. code: full dispo: downgrading to med surg (2) Seizure disorder: (3) Fracture of radius, distal, left, closed: (4) OCD (obsessive compulsive disorder): (5) Anxiety: Admission and Anticipated Discharge Date Admission Date: July 13, 2022 Supervising Physician Co-Signing Physician Notes I saw and examined patient. I agree with assessment and plan, and have discussed care with Dr. Dupree. Subjective Patient had some L arm pain last night, received ibuprofen. No current complaints. ROS neg. No current numbness of hand. States mood is ok. Review of Systems Review of Systems: All systems reviewed & are unremarkable except as noted in HPI & below Physical Exam Physical Exam: General: Grossly A&O. NAD. Cooperative. HEENT: Atraumatic, normocephalic. EOMI Pulm: CTAB. -wheezes, -rales, -rhonchi. No respiratory distress. Cardiac: RRR, -mrg. No LE edema. Abdominal: Nontender, nondistended, soft. Msk: Moving LUE. Wiggling fingers. Wearing forearm/wrist cast. Neuro: Sensation to light touch of left fingers intact. Results & Data Results & Data Vital Signs (Past 12 Hours) Vital Signs Temp Pulse Pulse Resp BP Pulse Ox O2 Del Method 07/16/22 03:15 37.1 C 54 L 15 121/73 98 Room Air 07/16/22 00:50 53 L 07/15/22 22:48 37.4 C 69 20 109/58 L 97 Room Air 07/15/22 19:03 37.6 C H 75 18 120/67 97 Room Air Diagnostic Findings Brain MRI 07/14/22 14:45 Brain MRI WITH AND WITHOUT CONTRAST HISTORY: seizure, right temporal lobe abnormality on prior MRI TECHNIQUE: Multiplanar multisequence MRI of the brain was performed both before and after the intravenous administration of contrast. COMPARISON STUDY: Head CT 07/13/2022. Brain MRI 01/26/2022. FINDINGS: There are no areas of restricted diffusion to suggest acute infarction. The midline structures are intact. The paranasal sinuses are clear. The mastoid air cells are clear. The ventricles and sulci are within normal limits for age. There is no mass, hematoma, midline shift. The major vascular flow-voids at the skull base are well maintained. Postcontrast sequences show no areas of abnormal enhancement. There is again noted increased T2 signal within the medial right temporal lobe/hippocampus. There is also suggestion of mild atrophy of the hippocampus which is new from the prior study. The associated cortical thickening of the medial right temporal lobe seen on the prior study has improved/resolved. IMPRESSION: 1. No acute infarct or intracranial hemorrhage. 2. Redemonstration of the abnormal signal within the medial right temporal lobe which now demonstrates mild hippocampal atrophy. 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 ACT 112: Negative or not required by law. Electronically signed by: Hermann Mckeon M.D. 07/14/2022 8:05 PM Resident Activity Tracking Resident Involvement: Resident Care Provided Care Provided: Adult [facility]
[2022-07-16] MEDS ORDERED: POTASSIUM CHLORIDE CRTAB 20 MEQ TABCR PO ONE (07:52)
[2022-07-16] MEDS ORDERED: POTASSIUM CHLORIDE CRTAB 20 MEQ TABCR PO STA (10:42)
[2022-07-16] MEDS: MAGNESIUM OXIDE 400 MG TAB PO SCH (10:48)
[2022-07-16] MEDS: lamoTRIgine 25 MG TAB PO SCH ×2 (10:49→20:50)
[2022-07-16] MEDS: levETIRAcetam 500 MG TAB PO SCH ×2 (10:49→20:51)
[2022-07-16 12:12] LABS: Marijuana Quant, GCMS Urine 4198 ng/mL (<5)
[2022-07-16] MEDS: MELATONIN 3 MG TAB PO PRN (22:55)
[2022-07-17] MEDS: IBUPROFEN 600 MG TAB PO PRN ×2 (03:55→09:59)
--- NOTE | 2022-07-17 07:39 | Discharge Summary ---
Date of Service July 17, 2022 Admission HPI Per Admitting Provider This 36-year-old male injured himself last evening around 5 PM. He states he was running down his driveway in [facility] and slipped, falling forward onto both hands. He sustained an injury to his wrists as well as his right hip. He did not seek treatment last night because he did not have a ride to the hospital. 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 He has been seizure- free since then. He is now on Keppra. He sees Dr. Hernandez from neurology for management. No prior history of wrist injury. He denies any numbness but does have some tingling to his fingers. He describes some soreness in the left upper arm and forearm, but his worst pain is at the wrist. He notes limitation in motion of the elbow, wrist, and digits. [id number]. Radiographic imaging has been obtained. Further exploration of his medical record reveals a 302 petition that states he threatened to kill himself last evening with a gun. He recently broke up with his girlfriend. His mother had taken away all firearms without him knowing. He became irate at not being able to find a gun, and threatened to drive himself to a bridge and jump off. He was not able to find keys to the car. His mother had the keys and attempted to leave. He reportedly jumped on the ferris of the car, attempting to prevent her from leaving. Admission Exam Per Admitting Provider General: Well-developed, well-nourished, young male, in no acute distress. No obvious discomfort. Sitting on the bed. Alert and oriented. Skin: Warm and dry with good turgor. No rashes or lesions. Mild ecchymosis developing at the left wrist. The patient is not diaphoretic. Multiple abrasions present on both palms as well as the right hip. None of these look infected. No appreciable foreign material. There is edema present at his left wrist and forearm. HEENT: Normocephalic atraumatic. Eyes PERRLA, EOMI. No conjunctiva or scleral injection. Nares patent bilaterally without turbinate enlargement. No significant drainage. No epistaxis. Oropharynx without erythema or exudate. Uvula midline, oral mucosa moist. No lesions present. Heart: Heart RRR. No MGR. Peripheral pulses are 2+. Lungs: Lungs are clear to auscultation. No crackles rhonchi or wheezing. Good air movement. The patient is able to take a deep breath. Abdomen: Abdomen was inspected, auscultated, and palpated. Bowel sounds present x 4. Soft, nontender to palpation. No hepato-splenomegaly. No masses noted. No rebound. Musculoskeletal: Gross motor function of the upper and lower extremities is intact for the right arm, and both legs. Left arm has full range of motion of the shoulder. He has full flexion and extension of the elbow but there is limited supination and pronation secondary to wrist pain. There is very limited motion of the wrist secondary to pain. Full pronation, supination to just past neutral. Very limited flexion and extension as well as radial and ulnar deviation. Motor function of the digits is intact but causes pain at the wrist. Thumb circumduction and opposition are intact. He has discomfort with palpation over the mid bicep, midshaft forearm, and wrist. Neurologic: Gross sensation is intact across both lower extremities by soft touch. Sensation is also intact to the right arm and hand. He complains of some tingling to the fingers on the left hand, but sensation is intact. Psych: Patient is anxious at this time. Makes good eye contact with conversation. Normal thought process. No tangential or grandiose thoughts. Principal Diagnosis Suicidal Ideation Left Wrist Fracture Discharge Exam General: A&Ox3. NAD. Cooperative. HEENT: Atraumatic, normocephalic. Pulm: CTAB A&P. -wheezes, -rales, -rhonchi. Symmetrical chest rise. No increase work of breathing. No respiratory distress. Cardiac: RRR, -mrg. Radial pulses intact and symmetrical. No LE edema. Abdominal: soft, non-tender, non-distended, BS x 4 Left Wrist: splint c/d/i. No surrounding erythema. Discharge Data Allergies Allergy/AdvReac Type Severity Reaction Status Date / Time Sulfa (Sulfonamide Allergy Unknown "SULFA = Verified 07/13/22 16:49 Antibiotics) UNSURE OF REACTION" Consultations 07/13/22 17:15 Consult Hospitalist Routine 07/13/22 18:04 ED Decision to Admit Stat 07/13/22 20:16 Consult Neurology Routine 07/14/22 00:04 Consult Psychiatry Routine Procedures Performed Operation Date: 07/14/22 09:10 Actual Procedures p Left Wrist Intra-articular Comminuted Distal Radius Fracture, Open Reduction Internal Fixation(Left) - Jean-Paul Bonilla MD Ordered Studies 07/13/22 18:43 CT head/brain wo con Stat 07/14/22 FL wrist LT 3V RTN Routine 07/14/22 08:42 US - OR guided needle placemen Stat 07/14/22 14:45 MR brain seizure wo/w con Routine Hospital Course (1) Closed fracture of left wrist: 36 y/o male w/ PMHx of epilepsy, anxiety, admitted to [facility] from 07/13 - 07/17 for surgical repair of left wrist fracture, as well as voluntary stay for suicidal ideation/intent. Will be transferred to [facility] on 07/17. Closed fracture of left wrist - Now s/p ORIF 07/14/22. Medically cleared postop by orthopedic surgery. Wearing cast. - Pain control: PRN Tylenol 650mg PO Q6H; PRN Ibuprofen 600mg PO Q6H Suicidal ideation - Voluntary petition evaluated by psychiatry due to aforementioned events (see HPI, H&P document on admission). - Will be transferred [facility] 07[facility], with ongoing efforts for placement to outside psychiatric facility - One-on-one sitter and suicidal precautions/checks ordered. Epilepsy - Patient of Dr. Logan Hernandez. Takes Keppra 1000 mg twice daily at home. - 07/14/22 brain MRI w/ redemonstration of likelymesial temporal sclerosis which would be consistent w/ epilepsy. - Lamotrigine 25mg PO BID added on 07/14 (per Neuro) due to concern for mood lability while on Keppra --> plan to transition to Lamotrigine long-term, defer to Neuro who will arrange this in several weeks as outpatient - Continue Keppra 1000 mg twice daily - Keppra level pending (drawn on 07/15) Anxiety - P.o. Ativan 0.5 mg every 4 hours as needed. Insomnia - Melatonin 6 mg p.o. as needed. diet: gluten-free. safe tray ppx: REINALDO stocking ordered; check compliance vs change to SCDs. ambulate prn. code: full (2) Seizure disorder: (3) Fracture of radius, distal, left, closed: (4) OCD (obsessive compulsive disorder): (5) Anxiety: Total Time Total Time Spent Total Time Spent (In Minutes): 30 minutes Discharge Plan Discharge Items Patient Disposition: Transfer Behavioral Health Fac Reason For Visit: LEFT DISTAL RADIUS FRACTURE Discharge Diagnosis: left distal radius fracture suicidal ideation Activity: Per Instructions section Non-emergency contact: Primary Care Provider and Psychiatrist Call non-emergency contact if: you have any medication questions, your symptoms worsen and you have a fever Follow-up/Referrals: Logan Hernandez MD [Physician] - (please schedule f/u in 3-4 weeks) Logan Nails DO [Primary Care Provider] - Lizbeth Nelson PA [Physician Lidar Technician] - 07/28/22 12:00 pm Diet: Regular Addtl Attending Provider Instructions: 36 y/o male w/ PMHx of epilepsy, anxiety, admitted to [facility] from 07/13 - 07/17 for surgical repair of left wrist fracture, as well as voluntary stay for suicidal ideation/intent. Will be transferred to [facility] on 07/17. Closed fracture of left wrist - Now s/p ORIF 07/14/22. Medically cleared postop by orthopedic surgery. Wearing cast. - Pain control: PRN Tylenol 650mg PO Q6H; PRN Ibuprofen 600mg PO Q6H Suicidal ideation - Voluntary petition evaluated by psychiatry due to aforementioned events (see HPI, H&P document on admission). - Will be transferred to [facility] on 07/17, with ongoing efforts for placement to outside psychiatric facility - One-on-one sitter and suicidal precautions/checks ordered. Epilepsy - Patient of Dr. Logan Hernandez. Takes Keppra 1000 mg twice daily at home. - 07/14/22 brain MRI w/ redemonstration of likelymesial temporal sclerosis which would be consistent w/ epilepsy. - Lamotrigine 25mg PO BID added on 07/14 (per Neuro) due to concern for mood lability while on Keppra --> plan to transition to Lamotrigine long-term, defer to Neuro who will arrange this in several weeks as outpatient - Continue Keppra 1000 mg twice daily - Keppra level pending (drawn on 07/15) Anxiety - P.o. Ativan 0.5 mg every 4 hours as needed. Insomnia - Melatonin 6 mg p.o. as needed. diet: gluten-free. safe tray ppx: REINALDO stocking ordered; check compliance vs change to SCDs. ambulate prn. code: full Addtl [employer] Provider Instructions: Post-operative Instructions Dear Patient and Family/Friends, Before you are discharged from the hospital, it is important to know what to expect when you get home after surgery. To that end, we have created this sheet of discharge instructions which covers many commonly asked questions. Make sure you go through this sheet in its entirety with your nurse before you are discharged. Please note that we will go over the specifics of your surgery and recovery when you return for your first post-operative visit. Sincerely, Dr. Bonilla Pain Expect to be in a fair amount of pain after surgery. Remember, our goal is not to eliminate your pain, but to make it tolerable. It is a good idea to stay a head of your pain by taking the medications you were prescribed once you get home. Typically, the pain starts improving 3-7 days after surgery. You should start weaning off the narcotic pain medication (oxycodone, hydrocodone, hydromorphone, morphine) as soon as your pain improves. Please call our office if your pain is not adequately controlled. Ice Ice your operative site at least 5 times a day for 15-30 minutes at a time. Make sure you have a thin cloth between the ice or cooling unit and your skin to prevent brandon bite. This is especially important if you received a nerve block. Continue icing your operative site for the first 5-7 days after surgery, then as needed. Diet/Nausea/Vomiting Start by drinking clear liquids and eating crackers. If you can tolerate this, then you may resume your normal diet. If you feel nauseated or vomit, take Zofran/ondansetron (if prescribed). Please call our office if you have intractable nausea or vomiting, or, if after hours, you may go to the Emergency Room for help. Constipation Constipation is a common side effect of narcotic pain medication. If you have not had a bowel movement within 2 days after surgery, we recommend purchasing an over the counter laxative such as Milk of Magnesia, Dulcolax, or Miralax from a local pharmacy, and taking it as instructed. Call our clinic if any questions. Slings and Braces If you were placed in a sling or brace, it must be worn at all times, including sleep. You may remove your sling or brace for physical therapy, home exercises, and showering. The length of time you will be in your brace and range of motion restrictions depends on what surgery you had; these details will be reviewed at your first post-operative appointment. Weight bearing and Range of Motion. Do not bear any weight through your operative extremity. If you had upper extremity surgery, do not lift anything with that arm. We will discuss your weight bearing, range of motion, and lifting restrictions in detail at your first post-operative appointment. Continuous Passive Motion (CPM) Machine If you were prescribed a CPM machine, it will start after your first post- operative appointment, at which time we will give you instructions on the range of motion settings and duration of treatment Physical therapy You are scheduled for physical therapy on 07/28/22 at and [facility] physical therapy at [address] [place] [address]. Please call the office if there is a conflict. [phone]. Wound care and showering We will inspect your wound at your first post-operative visit, and may do a dressing change at that time. Most patients will be in a water-proof dressing that is removed 14 days after surgery. It is normal to see some dried blood on the dressing. Do not remove your dressing, paper strips or sutures yourself unless you are given permission. REINALDO stockings If you were given white stockings, these are to be worn at all times except to shower (on both legs) for the first 2 weeks after surgery. Return to Work Your return to work depends on what surgery was done and what type of work you do. Please bring any paperwork your employer needs completed to your first post-operative visit. Also, bring a description of your job duties, as this helps us to understand what risks you may face at work. Travel Avoid long distance travel (greater than 1 hour) in airplanes and cars for the first 6 weeks after surgery. If you must travel, you need to have a Doppler ultrasound done before you travel to rule out a blood clot in your legs. Follow-up You have a follow up appointment scheduled on 07/28/2022 at 12:00, immediately after your physical therapy appointment, same place. If not, please contact our office to make this appointment before you leave the hospital. When to call the office It is normal to have swelling and bruising in the limb that was operated on. This will improve with time. It is also normal to have fevers for the first 2 days after surgery. Reasons you should call your doctor include: Uncontrolled pain; Nausea, vomiting, or constipation that does not improve with medication; Fevers over 101.5, chills, sweats; Drainage or bleeding from the wound; Foul odor; Spreading areas of redness; Any other concerns Pending Studies at Discharge: No Stand-Alone Forms: My [facility] Medications and DC Order Prescriptions: Continued levetiracetam [Keppra] 1,000 mg tablet 1,000 mg PO BID Qty: 60 5RF betaine-minerals Capsule 1 cap PO DAILY cetirizine [Zyrtec] 10 mg Tablet 10 mg PO DAILY PRN (Reason: Congestion) cod liver oil Capsule 1 cap PO DAILY magnesium oxide 500 mg Tablet 500 mg PO DAILY coenzyme Q10 [CoQ-10] 100 mg Capsule 200 mg PO DAILY K-99 Mix A Pro 1 dose PO DAILY Selicore Binder 1 dose PO DAILY L-Carnitine 500 mg Capsule 1,000 mg PO DAILY Rx Instructions: must administer with a meal/food Discharge Orders: Discharge Order (Routine); Ordered 07/17/22 Ordered By: Ha Freeman Admission Data Admit Date/Time: 07/13/22 17:10 Attending Provider: Vish Cardona Admit Provider: Jean-Paul Bonilla Primary Care Provider: Logan Nails Other Providers: Rodney Walton ; Jean-Paul Bonilla ; Logan Hernandez ; Consuelo Humphries ; Teresa Camejo ; Jens Ferris Supervising Physician Co-Signing Physician Notes I saw and examined patient. I agree with assessment and plan as well as discharge plan to psychiatry floor, and have discussed care with Dr. Freeman. Total time spent with Discharge plannin minutes Resident Activity Tracking Resident Involvement: Resident Care Provided Care Provided: Adult Hospital Medicine
[2022-07-17] MEDS: LORazepam 0.5 MG TAB PO PRN (07:58)
[2022-07-17] MEDS: lamoTRIgine 25 MG TAB PO SCH (08:02)
[2022-07-17] MEDS: levETIRAcetam 500 MG TAB PO SCH (08:02)
[2022-07-17] MEDS: MAGNESIUM OXIDE 400 MG TAB PO SCH (09:24)
== END 2022-07-17 13:14 | DRG 511 ==
LOC: ED 14:23 → SUATTDRO 17:10 → EDINP 17:10 → 2E 07-14 12:13 → 3E 07-16 19:06

== ENCOUNTER 2022-07-17 09:19 | Inpatient (IN) ==
[2022-07-17] MEDS ORDERED: BISMUTH SUBSALICYLATE LIQD 236 ML PO PRN (09:29)
[2022-07-17] MEDS ORDERED: MAGNESIUM HYDROXIDE SUSP 30 ML UDC PO PRN (09:29)
[2022-07-17] MEDS ORDERED: SODIUM CHLORIDE 0.65% NA SOLN 45 ML (OCEAN) PRN (09:29)
[2022-07-17] MEDS: hydrOXYzine HCl 25 MG TAB PO PRN ×3 (13:58→21:53)
[2022-07-17] MEDS: ACETAMINOPHEN 325 MG TAB PO PRN ×3 (13:58→21:54)
[2022-07-17] MEDS ORDERED: LORazepam 1 MG TAB PO PRN ×3 (14:09)
[2022-07-17] MEDS ORDERED: Ativan PO Alcohol Withdrawal--Active Protocol PO PRN (14:09)
[2022-07-17] MEDS: levETIRAcetam 500 MG TAB PO SCH (21:53)
[2022-07-17] MEDS: lamoTRIgine 25 MG TAB PO SCH (21:53)
[2022-07-18] MEDS: lamoTRIgine 25 MG TAB PO SCH ×2 (08:49→21:08)
[2022-07-18] MEDS: levETIRAcetam 500 MG TAB PO SCH ×2 (08:49→21:08)
[2022-07-18] MEDS: hydrOXYzine HCl 25 MG TAB PO PRN ×2 (08:50→21:10)
[2022-07-18] MEDS: ACETAMINOPHEN 325 MG TAB PO PRN ×2 (08:50→17:29)
[2022-07-18] MEDS: IBUPROFEN 600 MG TAB PO PRN (12:59)
--- NOTE | 2022-07-18 13:30 | History & Physical ---
Date of Service July 18, 2022 Impression / Recommendations Impression 36 y/o man who reportedly is able to function in a complex work environment but not in his personal life, who has a history of episodic suicidality in the context of alcohol intoxication and who believes that his behavior changed when he started levetiracetam. He evidences limited insight and significant minimization of events prior to admission. He fractured his left wrist during the events that led to this admission and had ORIF on 07/14/2022. He is not currently at risk for alcohol withdrawal symptoms given that he has been hospitalized since 07/13/2022. Risk of self-harm remains elevated given concerning suicidal statements reported prior to admission, minimization of events leading to hospitalization, impulsivity, social isolation, irritability, limited insight, substance use. Given elevated risk of harm to self he meets criteria for inpatient psychiatric care for diagnostic clarification, safety, stabilization, development of additional coping skills, disposition & safety planning. He is agreeable at this time for voluntary treatment. (1) Substance induced mood disorder: Present on Admission?: Yes (2) Alcohol use disorder, severe, dependence: Present on Admission?: Yes (3) Cannabis use disorder, severe, dependence: Present on Admission?: Yes (4) Seizure disorder: Present on Admission?: Yes (5) OCD (obsessive compulsive disorder): (6) ADD (attention deficit disorder): Plan * The patient was admitted to the [facility] ([facility]) on q15 min checks (behavioral with suicide precautions) for safety. The patient will participate in group, recreational, and milieu therapies and will be offered additional individual and family sessions as clinically appropriate. * He wishes to transfer to a residential life skills program in [place], so will f ocus on facilitating this Inventory Assets Strengths: supportive relationships willing to get treatment intelligent employed Needs: safety and stabilization additional coping skills increased outpatient services improved insight Suicide Risk Level Suicide Risk Level: Moderate (q15 min suicide checks) Suicide Risk Level Comments: denies any suicidal thoughts, now or prior to admission, but his narrative appears unreliable Risk Factors Assessment Male: Yes : Yes Do You Have Access To A Gun?: No Health Problems: No Mental Health Diagnoses: No Substance Use Disorders: Yes Previous Attempt: Yes Family History of Suicide: Yes Previous Psychiatric Hospitalization: Yes Hopelessness: No Protective Factors Assessment Lutheran Beliefs: Yes : No Responsible for Young Children: No Employed: Yes Stable Relationships: Yes Supportive Family: Yes Psychiatric History Identifying Data DAWSON MUNIZ is a 36-year-old M who currently lives with his mother, has a history of substance abuse, and was admitted on 07/17/22 13:15 on a 201 voluntary commitment for suicidal statements. Chief Complaint "It's all a misunderstanding". History of Present Illness As part of my review of the medical record, I read the following hospitalist H&P exerpted below: "This 36-year-old male injured himself last evening around 5 PM. He states he was running down his driveway in [facility] and slipped, falling forward onto both hands. He sustained an injury to his wrists as well as his right hip. He did not seek treatment last night because he did not have a ride to the hospital. 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 He has been seizure-free since then. He is now on Keppra. He sees Dr. Hernandez from neurology for management. No prior history of wrist injury. He denies any numbness but does have some tingling to his fingers. He describes some soreness in the left upper arm and forearm, but his worst pain is at the wrist. He notes limitation in motion of the elbow, wrist, and digits. [id number]. Radiographic imaging has been obtained. Further exploration of his medical record reveals a 302 petition that states he threatened to kill himself last evening with a gun. He recently broke up with his girlfriend. His mother had taken away all firearms without him knowing. He became irate at not being able to find a gun, and threatened to drive himself to a bridge and jump off. He was not able to find keys to the car. His mother had the keys and attempted to leave. He reportedly jumped on the ferris of the car, attempting to prevent her from leaving." the following hospitalist consultation exerpted below: "According to his mother, he recently broke up with his girlfriend, after which he threatened to kill himself with a gun. Mom had moved the guns by the time he went looking for them, at which point he became more agitated. He then tried to drive off (his license is suspended due to the seizures until July) but mom had also hidden the keys. He then stood in front of his mother's vehicle to prevent her from leaving. It is unclear what happened afterwards, but he apparently fell and fractured his wrist while attempting to break his fall." and the following psychiatric liaison RN note: "Patient signed MELECIO to speak with brother Kvng, per Kvng patient has a long history of substance abuse but most recently has been smoking exorbitant amounts of marijuana which contribute to his seizures and paranoid state, they have a life skills facility they want patient to go to in [place] once he is psychiatrically discharged from whatever facility he is placed at, patient's brother and sister have been working on their mothers behalf to coordinate aftercare as his mother and patient have a "abusive codependent relationship", Kvng spoke with patient's boss and his job will be held indefinitely until he gets treatment, denied other questions at this time." The petitioning Statement reads: 07/08/22 his girlfriend broke up with him. He missed two days of work was very dispondent and was drinking heavily. Yesterday 07/12/22 he told me he was going to kill himself and he was going to do it in the bathroom so he wouldnt make a mess. He said goodbye to me and his dog and ran upstairs. He was drunk, a couple of minutes later he came downstairs screaming in my face wheres the gun. The gun had been removed weeks ago unknown to him. So then he said he was going to jump off a bridge near our house. He got in his care but I had earlier removed all the car keys. Came back in very angry and demanded that I get the gun back from his brother or take him to [facility] to buy a gun. I got in my car to leave and he jumped on the ferris and stood and layed in front of the care for 30 min. I finally just got out of the car and went in the house. I watched which way he came back in and I ran out the other way and left. Because pt was voluntary, Dr. Humphries denied the part 302 petition and pt signed a part 201 voluntary admission. Pt reports a history of a previous psychiatric admission in 2013 when he "was taken to the ER drunk and became unruly". He says "they must have used some Haldol because I don't remember after that, but I woke up in [place]". He remains angry about this. Pt's father, Senior Film Projector Operatorpinking machine operator at [employer], by suicide in May 2021 and pt has voiced the belief that this was because his father was wracked with guilt about having forced that hospitalization. In the past, he has been assigned diagnoses of attention-deficit hyperactivity disorder (ADHD) and obsessive-compulsive disorder (OCD). On 07/14/2022 he underwent ORIF of comminuted left wrist fracture and was followed by the psychiatric liaison service during a search for a psychiatric bed. One was located, but he decided it was too far away and refused that option. His family had wanted him to go to a "life skills retreat" in [place] but pt initially refused and wanted no communication with family. He later changed his mind and said he did want to go to the life skills program. When a discharge made a bed available here, he was transferred to this unit on 07/17/2024. Pt tells me he was injured running after his mother's car as she drove down a steep driveway because he "didn't want her to leave" and tripping due to wearing sandals - this was nearly identical to what the hospitalist documented having been told. This differs substantially from the allegations in the petition for involuntary admission in several regards, not least that he denies any suicidality at all. He does acknowledge having "a glass of red wine" after work but insists he does not drink to excess. He has been on levetiracetam for seizures and is aware he is not supposed to use alcohol at all with it. He says he uses moderate amounts of medical cannabis. In speaking with me, pt presents as calm and superficially rational. He agrees that he needs to go for residential treatment because he lacks life skills, giving examples of not being able to do his own taxes or pay his bills and requiring family members to "manage all the adult stuff" in his life. 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 I tried to discuss the incongruity inherent in his being able to manage employee schedules, inventory, necessary records and paperwork, etc. at work and apparently not being able to manage similar tasks in his personal life, but he seemed unable to grasp that point. He refers to the woman his family call his "girlfriend" as his "fiancee". He says they've been together since February 2022 and that she's an undocumented immigrant who doesn't speak Bel[place]ian and needs to a citizen for residency purposes. He denies any symptoms at all of depression or steffany. Reports good sleep, appetite, energy, interest. Denies any delusions or hallucinations. Past Psychiatric History Previous Psych History: Admitted to [place] involuntarily in 2013, apparently as a result of behaviors while drunk. Has been assigned Dx ADHD and OCD. Current Psychiatric Diagnosis: SI, MDD Outpatient Services: Not currently in treatment Previous Psych Admissions: [place] in 2013 Do You Have Access To A Gun?: No Describe Attempts in the Past: record contains an allusion to an overdose attempt in 2015 Past Head Trauma/Neuro History History of Concussion/Seizure: Yes Currently on levetiracetam, being transitioned to lamotrigine Allergies Allergy/AdvReac Type Severity Reaction Status Date / Time Sulfa (Sulfonamide Allergy Unknown "SULFA = Verified 07/13/22 16:49 Antibiotics) UNSURE OF REACTION" Home Medications Medication Instructions Recorded Confirmed Type K-99 Mix A Pro 1 dose PO DAILY 01/26/22 07/13/22 History Selicore Binder 1 dose PO DAILY 01/26/22 07/13/22 History cetirizine 10 mg tablet (Zyrtec) 10 mg PO DAILY PRN Congestion 01/26/22 07/13/22 History cod liver oil 1 cap PO DAILY 01/26/22 07/13/22 History coenzyme Q10 100 mg capsule 200 mg PO DAILY 01/26/22 07/13/22 History (CoQ-10) magnesium oxide 500 mg tablet 500 mg PO DAILY 01/26/22 07/13/22 History betaine-minerals capsule 1 cap PO DAILY 02/03/22 07/13/22 History levetiracetam 1,000 mg tablet 1,000 mg PO BID #60 tabs 02/09/22 07/18/22 Rx (Keppra) levocarnitine 500 mg capsule 1,000 mg PO DAILY 07/13/22 07/13/22 History (L-Carnitine) Family History Family History of: Suicide Attempts and Suicide Completion Family Mental Health History Comment: Father completed suicide in May 2021. Alcohol History Hx of Alcohol Use Over the Past 12 Months: Yes (drinks "3 glasses of wine a night") AUDIT Total Score: 13 Smoking Use Have You Smoked or Used Tobacco Products in the Last 30 Days: No tobacco type: cigarettes Smoking Status: Never smoker Substance History Hx of Prescription Med Misuse Over the Past 12 Months: No Hx of Over the Counter Med Misuse Over the Past 12 Months: No Hx of Inhalent Misuse Over the Past 12 Months: No Hx of Organic Substance Use Over the Past 12 Months: Yes (smokes medical marijuana nightly) Hx of Illegal Substances/Street Drug Use Over Past 12 Months: No Problems as a Result of Past Substance Use: Estranged from Family and Loss of Family Support Problems as a Result of Past Substance Use Comments: Patient has history of alcohol abuse. Personal History Living Arrangements: Home Highest Grade Completed: College Highest Grade Completed Comment: [employer] BA graduated in 2018 Marital Status: Single Beliefs That Will Affect Care: None Patient History Medical History ADD (attention deficit disorder) Anxiety Cyclical vomiting Depression OCD (obsessive compulsive disorder) Overdose (05/28/14) Seizure-like activity Seizures Seizures Suicidal ideation Surgical History No significant past surgical history Family History Father Mother Skin cancer Other No significant family history Denies family history of Ovarian cancer Prostate cancer Myocardial infarction Breast cancer Lung cancer Colorectal cancer Hypertension Social History Smoking Status: Never smoker Tobacco Type: Cigarettes Age Started Using Tobacco: 17; Age Quit Using Tobacco: 33; packs per day: 1; Second Hand Exposure: No; Hx Alcohol Use: Yes Alcohol type: wine Hx Substance Use: Yes Prescribed Medications: Marijuana Last Used Substance: Days (ago) Preferred Language: Bel[place]ian Communication Ability: Effective Visual Impairment: Limited Hearing Ability: Normal Engineer Automated Equipment Required: No Beliefs That Will Affect Care: None marital status: Single Current Living Situation: Parent current occupational status: employed 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 Feels Safe at Home: Yes Childhood Exposure to Second-Hand Smoke: Yes Diet Comment: organic caffeine: Yes Dental Care, Regularly: Yes Physical Activity Frequency: 5-6 Times per Week Physical Activity Frequency Comment: run, cross country skiing weights and cardio Seatbelt Use: always Sunscreen Use: No Gender Identity: Male Assistive Devices: Brace/Splint/Immobilizer and Glasses Assistive Devices Comment: cast on left wrist/arm Review of Systems Psychiatric: as per Subjective / HPI and + substance abuse; no depression, no abnormal sleep pattern, no change in appetite, no suicidal ideation, no paranoia and no hallucinations Physical Exam Psychiatric: Orientation: alert, oriented to person, oriented to place, oriented to time and cooperative (superficially) Apperance: appropriately dressed Eye Contact: good eye contact Motor Behavior: steady gait and station and no abnormal motor movements Speech: normal rate/rhythm/volume of speech Affect: euthymic affect Mood: no depressed mood, no anxious mood and no irritable mood euthymic mood Thought Process: + circumstantial thought process and + tangential thought process Thought Content: reality based without delusions Suicidal Thoughts: denies suicidal thoughts, denies suicidal plan and denies suicidal intent Homicidal Thoughts: denies homicidal thoughts Hallucinations: no auditory hallucinations and no visual hallucinations Cognition: recent memory grossly intact, remote memory grossly intact, attention grossly intact and language grossly intact Estimated Intelligence: average estimated intelligence Insight: + impaired insight Judgment: + impaired judgement Vital Signs (Past 24 Hours): Last Vital Signs Temp 36.7 C 07/18/22 10:00 Pulse 64 07/18/22 10:00 Resp 16 07/18/22 10:00 BP 107/65 07/18/22 10:00 Pulse Ox 98 07/17/22 17:47 O2 Del Method Room Air 07/17/22 17:47 Exam Statement: A physical exam was performed in the ED for the purposes of medical clearance. I accept that physical as correct and adequate for the purposes of the inpatient physical exam. Results & Data ([facility]) Current Inpatient Medications Current Inpatient Medications: Current Inpatient Medications Acetaminophen (Acetaminophen 325 Mg Tab) 650 mg PO Q4H PRN PRN Reason: Headache or Minor Fever Stop: 08/16/22 09:28 Last Admin: 07/18/22 08:50 Dose: 650 mg Al Hydrox/Mg Hydrox/Simethicone (Aluminum/Magnesium Susp 30 Ml Udc) 30 ml PO Q4H PRN PRN Reason: GI Upset Stop: 08/16/22 09:28 Bismuth Subsalicylate (Bismuth Subsalicylate Liqd 236 Ml) 15 ml PO PRN PRN PRN Reason: Loose Stool Stop: 08/16/22 09:28 Hydroxyzine HCl (Hydroxyzine Hcl 25 Mg Tab) 50 mg PO HSZ PRN PRN Reason: Insomnia Stop: 08/16/22 09:28 Last Admin: 07/17/22 21:53 Dose: 50 mg Hydroxyzine HCl (Hydroxyzine Hcl 25 Mg Tab) 25 mg PO Q4H PRN PRN Reason: Anxiety Stop: 08/16/22 09:28 Last Admin: 07/18/22 08:50 Dose: 25 mg Ibuprofen (Ibuprofen 600 Mg Tab) 600 mg PO TID PRN PRN Reason: Pain Stop: 08/16/22 21:59 Last Admin: 07/18/22 12:59 Dose: 600 mg Lamotrigine (Lamotrigine 25 Mg Tab) 25 mg PO BID VIKTOR Stop: 08/16/22 20:59 Last Admin: 07/18/22 08:49 Dose: 25 mg Levetiracetam (Levetiracetam 500 Mg Tab) 1,000 mg PO BID VIKTOR Stop: 08/16/22 20:59 Last Admin: 07/18/22 08:49 Dose: 1,000 mg Lorazepam (Lorazepam 1 Mg Tab) 2 mg PO UD PRN; Protocol PRN Reason: EtOH Withdrawal AWSS Score 8,9 Stop: 08/16/22 14:08 Lorazepam (Lorazepam 1 Mg Tab) 3 mg PO ONCE PRN; Protocol PRN Reason: EtOH Withdrawal AWSS Score 10 & above Lorazepam (Lorazepam 1 Mg Tab) 1 mg PO UD PRN; Protocol PRN Reason: EtOH Withdrawal AWSS Score 6,7 Stop: 08/16/22 14:08 Magnesium Hydroxide (Magnesium Hydroxide Susp 30 Ml Udc) 30 ml PO DAILY PRN PRN Reason: Constipation Stop: 08/16/22 09:28 Sodium Chloride (Sodium Chloride 0.65% Na Soln 45 Ml (Lares)) 1 - 2 sprays NA PRN PRN PRN Reason: Nasal Dryness/Congestion Stop: 08/16/22 09:28
[2022-07-18] MEDS: ALUMINUM/MAGNESIUM SUSP 30 ML UDC PO PRN (18:20)
[2022-07-19] MEDS: IBUPROFEN 600 MG TAB PO PRN ×3 (08:55→20:58)
[2022-07-19] MEDS: levETIRAcetam 500 MG TAB PO SCH ×2 (08:56→20:58)
[2022-07-19] MEDS: lamoTRIgine 25 MG TAB PO SCH ×2 (08:56→20:59)
--- NOTE | 2022-07-19 13:08 | Psychiatric Progress Note ---
Date of Service July 19, 2022 Impression / Recommendations Impression 36 y/o man who reportedly is able to function in a complex work environment but not in his personal life, who has a history of episodic suicidality in the context of alcohol intoxication and who believes that his behavior changed when he started levetiracetam. He evidences limited insight and significant minimization of events prior to admission. He fractured his left wrist during the events that led to this admission and had ORIF on 07/14/2022. He is not currently at risk for alcohol withdrawal symptoms given that he has been hospitalized since 07/13/2022. 07/19/2022: Pt reports apprehensions about planned travel tomorrow to a residential life skills program in [place]. He's worried because their materials indicate many former patients remain in that area, indicating to him that "they become dependent on the program and can't ever get on with their lives". He is preoccupied with the conundrum of how he can function at work yet not in his personal life. Spent a total of over an hour [id number] with pt, about 50 minutes of that in cognitive-behavioral therapy addressing cognitive distortions and the effect of alcohol on his mood and behavior, and the remainder in coordination of care for his planned discharge early tomorrow morning. 07/18/2022: Risk of self-harm remains elevated given concerning suicidal statements reported prior to admission, minimization of events leading to hospitalization, impulsivity, social isolation, irritability, limited insight, substance use. Given elevated risk of harm to self he meets criteria for inpatient psychiatric care for diagnostic clarification, safety, stabilization, development of additional coping skills, disposition & safety planning. He is agreeable at this time for voluntary treatment. (1) Substance induced mood disorder: (2) Alcohol use disorder, severe, dependence: (3) Cannabis use disorder, severe, dependence: (4) Seizure disorder: (5) OCD (obsessive compulsive disorder): (6) ADD (attention deficit disorder): Plan 07/19/2022: * No clear indication seen for initiating any psychiatric medication at this time * Will continue to focus on transition to residential life skills program in [place] * Anticipate discharge early tomorrow morning. 07/18/2022: * The patient was admitted to the [facility] ([facility] unit) on q15 min checks (behavioral with suicide precautions) for safety. The patient will participate in group, recreational, and milieu therapies and will be offered additional individual and family sessions as clinically appropriate. * He wishes to transfer to a residential life skills program in [place], so will focus on facilitating this Inventory Assets Strengths: supportive relationships willing to get treatment intelligent employed Needs: safety and stabilization additional coping skills increased outpatient services improved insight Suicide Risk Level Suicide Risk Level: Moderate (q15 min suicide checks) Suicide Risk Level Comments: denies any suicidal thoughts, now or prior to admission, but his narrative appears unreliable Risk Factors Assessment Male: Yes : Yes Do You Have Access To A Gun?: No Health Problems: No Mental Health Diagnoses: No Substance Use Disorders: Yes Previous Attempt: Yes Family History of Suicide: Yes Previous Psychiatric Hospitalization: Yes Hopelessness: No Protective Factors Assessment Gnosticist Beliefs: Yes : No Responsible for Young Children: No Employed: Yes Stable Relationships: Yes Supportive Family: Yes Interval History Chief Complaint "[]". 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 Meal Information Percent Meal Consumed - Breakfast: 100 Percent Meal Consumed - Lunch: 100 Percent Meal Consumed - Dinner: 100 Subjective Subjective Patient was seen & assessed and interval progress reviewed with [treatment team] [nursing and social work] Physical Exam Psychiatric Orientation: alert, oriented to person, oriented to place, oriented to time and cooperative (superficially) Apperance: appropriately dressed Eye Contact: good eye contact Motor Behavior: steady gait and station and no abnormal motor movements Speech: normal rate/rhythm/volume of speech Affect: euthymic affect Mood: no depressed mood, no anxious mood and no irritable mood Thought Process: + circumstantial thought process and + tangential thought process Thought Content: reality based without delusions Suicidal Thoughts: denies suicidal thoughts, denies suicidal plan and denies suicidal intent Homicidal Thoughts: denies homicidal thoughts Hallucinations: no auditory hallucinations and no visual hallucinations Cognition: recent memory grossly intact, remote memory grossly intact, attention grossly intact and language grossly intact Estimated Intelligence: average estimated intelligence Insight: + impaired insight Judgment: + impaired judgement Vital Signs (Past 24 Hours) Last Vital Signs Temp 36.7 C 07/19/22 06:47 Pulse 53 L 07/19/22 06:48 Resp 16 07/19/22 06:47 BP 104/65 07/19/22 06:48 Pulse Ox 98 07/17/22 17:47 O2 Del Method Room Air 07/17/22 17:47 Results & Data ([facility]) Current Inpatient Medications Current Inpatient Medications: Current Inpatient Medications Acetaminophen (Acetaminophen 325 Mg Tab) 650 mg PO Q4H PRN PRN Reason: Headache or Minor Fever Stop: 08/16/22 09:28 Last Admin: 07/18/22 17:29 Dose: 650 mg Al Hydrox/Mg Hydrox/Simethicone (Aluminum/Magnesium Susp 30 Ml Udc) 30 ml PO Q4H PRN PRN Reason: GI Upset Stop: 08/16/22 09:28 Last Admin: 07/18/22 18:20 Dose: 30 ml Bismuth Subsalicylate (Bismuth Subsalicylate Liqd 236 Ml) 15 ml PO PRN PRN PRN Reason: Loose Stool Stop: 08/16/22 09:28 Hydroxyzine HCl (Hydroxyzine Hcl 25 Mg Tab) 50 mg PO HSZ PRN PRN Reason: Insomnia Stop: 08/16/22 09:28 Last Admin: 07/18/22 21:10 Dose: 50 mg Hydroxyzine HCl (Hydroxyzine Hcl 25 Mg Tab) 25 mg PO Q4H PRN PRN Reason: Anxiety Stop: 08/16/22 09:28 Last Admin: 07/18/22 08:50 Dose: 25 mg Ibuprofen (Ibuprofen 600 Mg Tab) 600 mg PO TID PRN PRN Reason: Pain Stop: 08/16/22 21:59 Last Admin: 07/19/22 08:55 Dose: 600 mg Lamotrigine (Lamotrigine 25 Mg Tab) 25 mg PO BID VIKTOR Stop: 08/16/22 20:59 Last Admin: 07/19/22 08:56 Dose: 25 mg Levetiracetam (Levetiracetam 500 Mg Tab) 1,000 mg PO BID VIKTOR Stop: 08/16/22 20:59 Last Admin: 07/19/22 08:56 Dose: 1,000 mg Lorazepam (Lorazepam 1 Mg Tab) 2 mg PO UD PRN; Protocol PRN Reason: EtOH Withdrawal AWSS Score 8,9 Stop: 08/16/22 14:08 Lorazepam (Lorazepam 1 Mg Tab) 3 mg PO ONCE PRN; Protocol PRN Reason: EtOH Withdrawal AWSS Score 10 & above Lorazepam (Lorazepam 1 Mg Tab) 1 mg PO UD PRN; Protocol PRN Reason: EtOH Withdrawal AWSS Score 6,7 Stop: 08/16/22 14:08 Magnesium Hydroxide (Magnesium Hydroxide Susp 30 Ml Udc) 30 ml PO DAILY PRN PRN Reason: Constipation Stop: 08/16/22 09:28 Sodium Chloride (Sodium Chloride 0.65% Na Soln 45 Ml (Bell)) 1 - 2 sprays NA PRN PRN PRN Reason: Nasal Dryness/Congestion Stop: 08/16/22 09:28 Post Discharge Appointments Primary Care Physician Name Of Family Doctor/PCP: Dr. Nails Contact Information Discharge / Discharge Address: [address] [place] [address] E&M Selection based on Time Time Spent Minutes Spent on Pre-Visit Items: 12 (multidisciplinary treatment team meeting; discharge planning; review of the medical record) Minutes Spent During Visit: 62 (cognitive-behavioral therapy addressing cognitive distortions; discharge planning) Minutes Spent Post-Visit: 10 (documentation; communication with relevant members of the treatment team) Total Minutes Spent: 84
--- NOTE | 2022-07-19 13:42 | Discharge Summary ---
Date of Service July 20, 2022 History of Present Illness As part of my review of the medical record, I read the following hospitalist H&P exerpted below: "This 36-year-old male injured himself last evening around 5 PM. He states he was running down his driveway in [facility] and slipped, falling forward onto both hands. He sustained an injury to his wrists as well as his right hip. He did not seek treatment last night because he did not have a ride to the hospital. 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 He has been seizure-free since then. He is now on Keppra. He sees Dr. Hernandez from neurology for management. No prior history of wrist injury. He denies any numbness but does have some tingling to his fingers. He describes some soreness in the left upper arm and forearm, but his worst pain is at the wrist. He notes limitation in motion of the elbow, wrist, and digits. [id number]. Radiographic imaging has been obtained. Further exploration of his medical record reveals a 302 petition that states he threatened to kill himself last evening with a gun. He recently broke up with his girlfriend. His mother had taken away all firearms without him knowing. He became irate at not being able to find a gun, and threatened to drive himself to a bridge and jump off. He was not able to find keys to the car. His mother had the keys and attempted to leave. He reportedly jumped on the ferris of the car, attempting to prevent her from leaving." the following hospitalist consultation exerpted below: "According to his mother, he recently broke up with his girlfriend, after which he threatened to kill himself with a gun. Mom had moved the guns by the time he went looking for them, at which point he became more agitated. He then tried to drive off (his license is suspended due to the seizures until July) but mom had also hidden the keys. He then stood in front of his mother's vehicle to prevent her from leaving. It is unclear what happened afterwards, but he apparently fell and fractured his wrist while attempting to break his fall." and the following psychiatric liaison RN note: "Patient signed MELECIO to speak with brother Kvng, per Kvng patient has a long history of substance abuse but most recently has been smoking exorbitant amounts of marijuana which contribute to his seizures and paranoid state, they have a life skills facility they want patient to go to in [place] once he is psychiatrically discharged from whatever facility he is placed at, patient's brother and sister have been working on their mothers behalf to coordinate aftercare as his mother and patient have a "abusive codependent relationship", Kvng spoke with patient's boss and his job will be held indefinitely until he gets treatment, denied other questions at this time." The petitioning Statement reads: 07/08/22 his girlfriend broke up with him. He missed two days of work was very dispondent and was drinking heavily. Yesterday 07/12/22 he told me he was going to kill himself and he was going to do it in the bathroom so he wouldnt make a mess. He said goodbye to me and his dog and ran upstairs. He was drunk, a couple of minutes later he came downstairs screaming in my face wheres the gun. The gun had been removed weeks ago unknown to him. So then he said he was going to jump off a bridge near our house. He got in his care but I had earlier removed all the car keys. Came back in very angry and demanded that I get the gun back from his brother or take him to [facility] to buy a gun. I got in my car to leave and he jumped on the ferris and stood and layed in front of the care for 30 min. I finally just got out of the car and went in the house. I watched which way he came back in and I ran out the o ther way and left. Because pt was voluntary, Dr. Humphries denied the part 302 petition and pt signed a part 201 voluntary admission. Pt reports a history of a previous psychiatric admission in 2013 when he "was taken to the ER drunk and became unruly". He says "they must have used some Haldol because I don't remember after that, but I woke up in [place]". He remains angry about this. 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 In the past, he has been assigned diagnoses of attention-deficit hyperactivity disorder (ADHD) and obsessive-compulsive disorder (OCD). On 07/14/2022 he underwent ORIF of comminuted left wrist fracture and was followed by the psychiatric liaison service during a search for a psychiatric bed. One was located, but he decided it was too far away and refused that option. His family had wanted him to go to a "life skills retreat" in [place] but pt initially refused and wanted no communication with family. He later changed his mind and said he did want to go to the life skills program. When a discharge made a bed available here, he was transferred to this unit on 07/17/2024. Pt tells me he was injured running after his mother's car as she drove down a steep driveway because he "didn't want her to leave" and tripping due to wearing sandals - this was nearly identical to what the hospitalist documented having been told. This differs substantially from the allegations in the petition for involuntary admission in several regards, not least that he denies any suicidality at all. He does acknowledge having "a glass of red wine" after work but insists he does not drink to excess. He has been on levetiracetam for seizures and is aware he is not supposed to use alcohol at all with it. He says he uses moderate amounts of medical cannabis. In speaking with me, pt presents as calm and superficially rational. He agrees that he needs to go for residential treatment because he lacks life skills, giving examples of not being able to do his own taxes or pay his bills and requiring family members to "manage all the adult stuff" in his life. 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 I tried to discuss the incongruity inherent in his being able to manage employee schedules, inventory, necessary records and paperwork, etc. at work and apparently not being able to manage similar tasks in his personal life, but he seemed unable to grasp that point. He refers to the woman his family call his "girlfriend" as his "fiancee". He says they've been together since February 2022 and that she's an undocumented immigrant who doesn't speak Sinhala and needs to a citizen for residency purposes. He denies any symptoms at all of depression or steffany. Reports good sleep, appetite, energy, interest. Denies any delusions or hallucinations. Physical Exam Psychiatric Orientation: alert, oriented to person, oriented to place, oriented to time and cooperative (superficially) Apperance: appropriately dressed Eye Contact: good eye contact Motor Behavior: steady gait and station and no abnormal motor movements Speech: normal rate/rhythm/volume of speech Affect: euthymic affect Mood: no depressed mood, no anxious mood and no irritable mood Thought Process: + circumstantial thought process and + tangential thought process Thought Content: reality based without delusions Suicidal Thoughts: denies suicidal thoughts, denies suicidal plan and denies suicidal intent Homicidal Thoughts: denies homicidal thoughts Hallucinations: no auditory hallucinations and no visual hallucinations Cognition: recent memory grossly intact, remote memory grossly intact, attention grossly intact and language grossly intact Estimated Intelligence: average estimated intelligence Insight: + impaired insight Judgment: + impaired judgement Vital Signs (Past 24 Hours) Last Vital Signs Temp 36.7 C 07/19/22 06:47 Pulse 53 L 07/19/22 06:48 Resp 16 07/19/22 06:47 BP 104/65 07/19/22 06:48 Pulse Ox 98 07/17/22 17:47 O2 Del Method Room Air 07/17/22 17:47 See admission H&P and DOD assessment. Principal Diagnosis Substance-induced Mood Disorder Psychiatric Data See daily stay summary. In short, safety was maintained and the patient was cooperative with care. Medication changes were not made. A family session was held and safety plan was completed prior to discharge. 07/19/2022: Pt reports apprehensions about planned travel tomorrow to a residential life skills program in [place]. He's worried because their materials indicate many former patients remain in that area, indicating to him that "they become dependent on the program and can't ever get on with their lives". He is preoccupied with the conundrum of how he can function at work yet not in his personal life. Spent a total of over an hour [id number] with pt, about 50 minutes of that in cognitive-behavioral therapy addressing cognitive distortions and the effect of alcohol on his mood and behavior, and the remainder in coordination of care for his planned discharge early tomorrow morning. 07/18/2022: Risk of self-harm remains elevated given concerning suicidal statements reported prior to admission, minimization of events leading to hospitalization, impulsivity, social isolation, irritability, limited insight, substance use. Given elevated risk of harm to self he meets criteria for inpatient psychiatric care for diagnostic clarification, safety, stabilization, development of additional coping skills, disposition & safety planning. He is agreeable at this time for voluntary treatment. Day of Discharge Assessment Today the patient voices readiness for discharge. They note improvement in mood and deny thoughts to harm self or others. Thoughts remain organized and they are improved from admission. There is no evidence of psychosis. They agree to take mediations as prescribed and keep follow-up appointments. They are stable for discharge to outpatient level of care. Transition of Care Transition Of Care Record: was reviewed with the patient Advance Directives Advance Directives Information Provided: Yes Advance Directives: No Mental Health Advance Directive: No Advance Directives on File: No Living Will: No Power of Ditch Digger: No Advance Directives Reason:: Declines as Mental Health Visit. Suicide Risk Level Suicide Risk Level: Low (q15 min observation checks) Suicide Risk Level Comments: denies any suicidal thoughts Risk Factors Assessment Male: Yes : Yes Do You Have Access To A Gun?: No Health Problems: No Mental Health Diagnoses: No Substance Use Disorders: Yes Previous Attempt: Yes Family History of Suicide: Yes Previous Psychiatric Hospitalization: Yes Hopelessness: No Protective Factors Assessment Pent[employer]al Beliefs: Yes : No Responsible for Young Children: No Employed: Yes Stable Relationships: Yes Supportive Family: Yes Total Time Total Time Spent: Greater Than 30 Minutes Total Time Includes: Discharge Planning, Medication Reconciliation, Communication with other providers and As well as (documentation) Hospital Course (1) Substance induced mood disorder: (2) Alcohol use disorder, severe, dependence: (3) Cannabis use disorder, severe, dependence: (4) ADD (attention deficit disorder): (5) Seizure disorder: (6) Fracture of radius, distal, left, closed: Plan 07/19/2022: * No clear indication seen for initiating any psychiatric medication at this time * Will continue to focus on transition to residential life skills program in [place] * Anticipate discharge early tomorrow morning. 07/18/2022: * The patient was admitted to the [facility] (locked inpatient mental health unit) on q15 min checks (behavioral with suicide precautions) for safety. The patient will participate in group, recreational, and milieu therapies and will be offered additional individual and family sessions as clinically appropriate. * He wishes to transfer to a residential life skills program in [place], so will focus on facilitating this Post Discharge Appointments Primary Care Physician Name Of Family Doctor/PCP: Dr. Nails Other #1: Name of Aftercare Appointment: [facility] Phone Number of Aftercare Appointment: Date of Aftercare Appointment: 07/20/22 Aftercare Appointment Comment: [address] [place] [id number] Contact Information Discharge / Discharge Address: [address] [place] [id number] Discharge Plan Discharge Items Patient Disposition: Home - Self-Care Reason For Visit: MDD Discharge Diagnosis: Substance-induced Mood Disorder Activity: Resume your previous activity Non-emergency contact: Primary Care Provider and Psychiatrist Call non-emergency contact if: you have any medication questions and your symptoms worsen Follow-up/Referrals: Logan Nails, [Primary Care Provider] - Diet: Regular Addtl Attending Provider Instructions: SPECIAL CARE INSTRUCTIONS: 1. Follow through with your scheduled aftercare appointments. If unable to keep an appointment, please call to reschedule. 2. Take your medication only as prescribed. Medication should not be changed or stopped without the approval of your doctor. In the event of worsening symptoms or concerns about side effects, contact your doctor immediately. 3. Utilize new healthy coping skills, anger management skills, and stress management skills learned during your hospitalization. Journal feelings and process them with a support person. Identify stressors or situations that may result in relapse, deterioration or inappropriate behaviors and develop a plan to deal with those issues. 4. If your coping skills are ineffective and you are in crisis, contact your outpatient providers for direction. If unable to reach your providers, please call the [facility] CRISIS LINE AT , go to the [facility] walk-in center at [address], [address], [place], or go to the closest Emergency Room. 5. Avoid alcohol and un-prescribed drugs. 6. You have been provided with the Mental Health Advance Directives Pamphlet for your review. 7. Your condition is stable for discharge to outpatient level of care, but recovery is an ongoing process. Ifthoughts to harm yourself or others return, follow the safety plan developed during your stay. Planning for a safe return home includes securing weapons. Our treatment team recommends weaponsbe removed from the home until your outpatient provider reassesses your progress. In rare cases where the items themselvescannot be removed, guns and ammunitionshould be secured separatelyand keys stored by a reliable personoutside of the home. If you were admitted on an involuntary commitment, the police or other legal authorities may be involved in this process. AFTERCARE APPOINTMENTS: * Please call your insurance company prior to your scheduled appointment to confirm your aftercare providers are covered. Take your insurance information to your appointments. WHO TO CALL AND WHEN: Medical Emergencies: For questions or emergencies related to your hospital stay, please contact the Inpatient Behavioral Health Unit at [phone]. A lumber handler is on-call 14/11 for the Behavioral Health Unit for emergencies At any time you feel your situation is an emergency, you may also call 911 immediately. MEDICATION Continue lamotrigine 25 mg tablets 2 tablets (together) once a day for one more week, then increase to 4 tablets (together) once a day Pending Studies at Discharge: No Stand-Alone Forms: My [facility], Smoking Cessation Medications and DC Order Prescriptions: New lamotrigine [Lamictal] 25 mg Tablet See Rx Instructions .ROUTE .COMPLEX Qty: 106 0RF Rx Instructions: take 2 tablets by mouth daily for 1 more week, then 4 tablets (together) by mouth daily Continued levetiracetam [Keppra] 1,000 mg tablet 1,000 mg PO BID Qty: 60 5RF betaine-minerals Capsule 1 cap PO DAILY cetirizine [Zyrtec] 10 mg Tablet 10 mg PO DAILY PRN (Reason: Congestion) cod liver oil Capsule 1 cap PO DAILY magnesium oxide 500 mg Tablet 500 mg PO DAILY coenzyme Q10 [CoQ-10] 100 mg Capsule 200 mg PO DAILY K-99 Mix A Pro 1 dose PO DAILY Selicore Binder 1 dose PO DAILY L-Carnitine 500 mg Capsule 1,000 mg PO DAILY Rx Instructions: must administer with a meal/food Discharge Orders: Discharge Order (Routine); Ordered 07/20/22 Ordered By: Jens Ferris Admission Data Admit Date/Time: 07/17/22 13:15 Attending Provider: Jens Ferris Admit Provider: Jens Ferris Primary Care Provider: Logan Nails Other Interventions: Discharge Summary Assessment (RN) Last Done: 07/19/22 15:50 PSY Interdisciplinary Discharge Planning Last Done: 07/19/22 09:55 Coding Level of Care Code 34266 D/C day mgmt > 30 min Diagnoses Substance induced mood disorder F19.94 Alcohol use disorder, severe, dependence F10.20 Cannabis use disorder, severe, dependence F12.20 ADD (attention deficit disorder) F98.8 Seizure disorder G40.909 Fracture of radius, distal, left, closed S52.502A Time Spent (min) 32
[2022-07-19] MEDS: ACETAMINOPHEN 325 MG TAB PO PRN (18:43)
[2022-07-19] MEDS: hydrOXYzine HCl 25 MG TAB PO PRN (20:58)
[2022-07-19] MEDS: ALUMINUM/MAGNESIUM SUSP 30 ML UDC PO PRN (23:06)
[2022-07-20] MEDS: lamoTRIgine 25 MG TAB PO SCH (06:32)
[2022-07-20] MEDS: ACETAMINOPHEN 325 MG TAB PO PRN (06:53)
== END 2022-07-20 06:55 | disposition home or self-care (01) | DRG 897 ==
LOC: 3S 13:15

== ENCOUNTER 2024-04-04 13:59 | Observation (INO) ==
--- NOTE | 2024-04-04 14:23 | Emergency Department Note ---
ED Provider Note History of Present Illness Chief Complaint: Swelling/Edema to Extremity Stated Complaint: FACIAL EDEMA Time Seen by Provider: 04/04/24 14:08 Source: patient Mode of arrival: ambulatory Limitations: no limitations This patient is a 38-year-old male who presents to the emergency department for evaluation of left-sided facial swelling. Patient reports that he had a dental implant done in early February, a little over a month ago. He took a short course of amoxicillin after that and states that he did fine initially but after finishing the amoxicillin had some vomiting for about 2 weeks. Patient does have a history of cyclical vomiting syndrome. He states that after that, he seemed to be fine and was not having any dental issues. He began having pain of the left upper teeth 6 days ago. Symptoms continued throughout the weekend and on Monday (3 days ago) he was seen by the dentist. He states that they did x- rays and ruled out an abscess. He reports that he was diagnosed with a bacterial infection under the gums. He reports that his dentist recommended that he do "oil pulling." He started doing this and states that 2 days ago, he developed increased pain as well as some facial swelling. This worsened throughout the day yesterday. He went to [facility] today and they recommended that he come here. He states the swelling is throughout his face up toward the eye. It is painful and rates his discomfort a 7/10. He has felt slightly feverish but denies any known fevers. He denies any difficulty breathing or swallowing. Home Medications Medication Instructions Recorded Confirmed Type coenzyme Q10 100 mg capsule 200 mg PO DAILY 01/26/22 04/04/24 History (CoQ-10) magnesium oxide 500 mg PO DAILY 01/26/22 04/04/24 History Beef Liver 1 dose PO DAILY 04/04/24 04/04/24 History Lactobacillus acidophilus 10 10,000 mmu cells PO DAILY 04/04/24 04/04/24 History billion cell capsule (Probiotic) Grant Iodine 1 dose PO DAILY 04/04/24 04/04/24 History acetylcarnitine 500 mg capsule 500 mg PO DAILY 04/04/24 04/04/24 History ascorbic acid (vitamin C) 1,000 mg 1 g PO DAILY 04/04/24 04/04/24 History tablet (Vitamin C) digestive enzymes 1 cap PO DAILY 04/04/24 04/04/24 History vitamin B complex 1 tab PO DAILY 04/04/24 04/04/24 History zinc gluconate 50 mg tablet 50 mg PO DAILY 04/04/24 04/04/24 History Allergies Allergy/AdvReac Type Severity Reaction Status Date / Time Sulfa (Sulfonamide Allergy Unknown "SULFA = Verified 01/31/24 09:48 Antibiotics) UNSURE OF REACTION" Past Med/Surg History Problem List (Updated 04/04/24 @ 21:09 by Rodney Walton MD) Cyclical vomiting See prior GI notes from [facility]. Review from progress notes 09/11/2023 ADD (attention deficit disorder) (Chronic) Anxiety Medical History (Updated 04/04/24 @ 21:09 by Rodney Walton MD) Seizure disorder Alcohol use disorder, severe, dependence Substance induced mood disorder Fracture of radius, distal, left, closed Cannabis use disorder, severe, dependence Abrasion, hand Encephalopathy Temporal lobe seizure Seizures Seizure-like activity Neck pain Gastroparesis Suicidal ideation Overdose (05/28/14) Depression Seizures OCD (obsessive compulsive disorder) provisional Surgical History History of surgery on wrist No significant past surgical history Family History Father Mother Skin cancer Other No significant family history Denies family history of Ovarian cancer Prostate cancer Myocardial infarction Breast cancer Lung cancer Colorectal cancer Hypertension Social History Smoking Status: Never smoker Tobacco Type: Cigarettes Age Started Using Tobacco: 17; Age Quit Using Tobacco: 33; packs per day: 1; Second Hand Exposure: No; Do You Dip or Chew Tobacco: No; Hx Alcohol Use: Yes Alcohol type: wine Hx Substance Use: Yes Prescribed Medications: Marijuana Last Used Substance: Days (ago) Preferred Language: Japanese Communication Ability: Effective Visual Impairment: Limited Hearing Ability: Normal Overseer Kosher Kitchen Required: No Beliefs That Will Affect Care: None marital status: Single Current Living Situation: Parent current occupational status: employed 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 Feels Safe at Home: Yes Childhood Exposure to Second-Hand Smoke: Yes Diet: regular Diet Comment: organic caffeine: Yes Dental Care, Regularly: Yes Physical Activity Frequency: 5-6 Times per Week Physical Activity Frequency Comment: run, cross country skiing weights and cardio Seatbelt Use: always Sunscreen Use: No Gender Identity: Male Assistive Devices: Brace/Splint/Immobilizer and Glasses Physical Exam Vital Signs Vital Signs - 24 hr 04/04/24 14:03 04/04/24 15:59 04/04/24 17:00 Temperature 37.3 C Temperature Source Temporal Artery Scan Pulse Rate 69 Pulse Rate [Apical] 74 74 Respiratory Rate 18 22 18 Respiratory Effort / Characteristics Non-Labored Spontaneous Non-Labored Spontaneous Non-Labored Spontaneous Respiratory Depth Normal Normal Normal Respiratory Pattern Regular Blood Pressure 129/77 Blood Pressure [Right Arm] 125/70 121/75 Blood Pressure Mean 94 Blood Pressure Mean [Right Arm] 88 90 Pulse Oximetry 99 98 98 Oxygen Delivery Method Room Air Room Air Sepsis Recent Fever Within 48 Hours No Sepsis New/Unexplained Change in Mental Status N/A Sepsis Action Taken by Nursing No Action Required 04/04/24 19:00 Temperature Temperature Source Pulse Rate Pulse Rate [Apical] 55 L Respiratory Rate 19 Respiratory Effort / Characteristics Non-Labored Spontaneous Respiratory Depth Normal Respiratory Pattern Blood Pressure Blood Pressure [Right Arm] 120/85 Blood Pressure Mean Blood Pressure Mean [Right Arm] 96 Pulse Oximetry 97 Oxygen Delivery Method Room Air Sepsis Recent Fever Within 48 Hours Sepsis New/Unexplained Change in Mental Status Sepsis Action Taken by Nursing VITALS: Vitals are noted on the nurse's note and reviewed by myself. GENERAL: This is a 38-year-old male, in no acute distress, well-developed well- nourished. FACE: There is swelling over the left maxillary region extending into the infraorbital region. EARS: External auditory canals clear, tympanic membranes pearly canseco without erythema or effusion bilaterally. EYES: Pupils equal round and reactive to light and accommodation. NOSE: Patent, turbinates without inflammation or discharge. MOUTH: Overall poor dentition with multiple caries noted. NECK: Supple without nuchal rigidity. Left anterior cervical lymphadenopathy noted. HEART: Regular rate and rhythm without murmurs gallops or rubs. LUNGS: Clear to auscultation bilaterally without wheezes, rales or rhonchi. NEURO: Patient was alert and oriented to person place and time. Course Administered Medications Ketorolac Tromethamine (Ketorolac Tromethamine 15 Mg/Ml Vial) 15 mg IV Q6H PRN PRN Reason: Pain Stop: 04/09/24 20:26 Last Admin: 04/04/24 20:40 Dose: 15 mg Documented By: RACHANA Discontinued Medications Clindamycin Phosphate (Cleocin/D5w) 600 mg in 50 mls @ 100 mls/hr IV NOW ONE Stop: 04/04/24 18:11 Last Infusion: 04/04/24 20:09 Dose: Infused Documented By: Admin: 04/04/24 19:28 Dose: 100 mls/hr Documented By: CARLOS Acetaminophen (Ofirmev) 1,000 mg in 100 mls @ 400 mls/hr IV NOW STA Stop: 04/04/24 18:10 Last Infusion: 04/04/24 19:07 Dose: Infused Documented By: Admin: 04/04/24 18:01 Dose: 400 mls/hr Documented By: CARLOS Ioversol (Optiray 320 100ml) 90 ml IV ONCE ONE Stop: 04/04/24 16:55 Last Admin: 04/04/24 16:55 Dose: 90 ml Documented By: EMELY Ketorolac Tromethamine (Ketorolac Tromethamine 15 Mg/Ml Vial) 15 mg IV NOW STA Stop: 04/04/24 14:19 Last Admin: 04/04/24 14:35 Dose: 15 mg Documented By: ALEJANDRA Morphine Sulfate (Morphine Sulfate 4 Mg/Ml 1 Ml Carp\\Vial) 4 mg IV NOW STA Stop: 04/04/24 16:14 Last Admin: 04/04/24 18:13 Dose: 4 mg Documented By: CARLOS Ondansetron HCl (Ondansetron Inj 2 Mg/Ml 2 Ml Vial) 4 mg IV NOW STA Stop: 04/04/24 16:14 Last Admin: 04/04/24 16:48 Dose: 4 mg Documented By: ALEJANDRA Medical Decision Making Differential Diagnosis Differential diagnosis includes dental caries, periapical abscess, facial cellulitis, Abel's angina, pharyngitis, referred pain, among others. Laboratory Data Attestation: I reviewed the patient's lab results. 04/04/24 15:59 04/04/24 15:59 Lab Results 04/04/24 Range/Units 15:59 WBC 16.39 H (4.8-10.8) K/ul RBC 4.80 (4.70-6.10) M/uL Hgb 15.2 (14.0-18.0) g/dl Hct 44.0 (42.0-52.0) % MCV 91.7 (80.0-100.0) fL MCH 31.7 (25.0-34.0) pg MCHC 34.5 (32.0-36.0) g/dL RDW Std Deviation 42.0 (36.4-46.3) fL RDW Coeff of Debbie 12.4 (11.5-14.5) % Plt Count 181 (130-400) K/uL MPV 10.5 (9.4-12.4) fL Immature Gran % (Auto) 0.4 % Neut % (Auto) 83.7 % Lymph % (Auto) 6.5 % [place] % (Auto) 9.0 % Eos % (Auto) 0.2 % Baso % (Auto) 0.2 % Neut # (Auto) 13.73 H (1.40-6.50) K/uL Lymph # (Auto) 1.07 L (1.20-3.40) K/uL [place] # (Auto) 1.47 H (0.11-0.59) K/uL Eos # (Auto) 0.03 (0.00-0.50) K/uL Baso # (Auto) 0.03 (0.00-0.20) K/uL Immature Gran # (Auto) 0.06 (0.01-0.20) K/uL Sodium 138 (136-145) mmol/L Potassium 4.2 (3.5-5.1) mmol/L [place] 104 (98-107) mmol/L Carbon Dioxide 26 (21-32) mmol/L Anion Gap 8 (3-11) BUN 20 (6-23) mg/dl Creatinine 0.78 (0.6-1.4) mg/dl Est Cr Clr Drug Dosing 104.9 ml/min eGFR 117.79 BUN/Creatinine Ratio 25.6 H (10-20) Glucose 78 (70-99(Fasting)) mg/dl Calcium 9.8 (8.6-10.3) mg/dl Total Bilirubin 1.1 H (0.2-1.0) mg/dl AST 19 (13-39) U/L ALT 22 (7-52) U/L Alkaline Phosphatase 48 (34-104) U/L Total Protein 8.0 (6.0-8.3) gm/dl Albumin 5.0 (3.4-5.0) gm/dl Globulin 3.0 (2.5-4.0) gm/dl Albumin/Globulin Ratio 1.7 (0.9-2) Imaging Data Attestation: I personally reviewed and interpreted this imaging study as follows: Radiologist's Impression: Face CT 04/04/24 14:18 EXAM: CT Maxillofacial With Intravenous Contrast INDICATION: Left facial swelling. Upper dental pain. TECHNIQUE: Axial computed tomography images of the face with intravenous contrast. Sagittal and coronal reformatted images were created and reviewed. This CT exam was performed using one or more of the following dose reduction techniques: automated exposure control, adjustment of the mA and/or kV according to patient size, and/or use of iterative reconstruction technique. CONTRAST: In theml of Optiray 320 was administered intravenously. COMPARISON: No relevant prior studies available. FINDINGS: Bones/joints: No osseous erosion. Soft tissues: There is severe left facial soft tissue swelling from the orbit to below the mandible. There is a left periodontal abscess along the maxilla measuring 2.2 cm AP by 0.9 cm transverse by 2.2 cm long. No soft tissue gas collection. Orbits: No abnormality noted. Sinuses: No layering fluid in the visualized portions of the paranasal sinuses. IMPRESSION: Severe left facial cellulitis with a 2.2 x 0.9 x 2.2 cm periodontal abscess along the left maxilla. ACT 112: Negative or not required by law. Electronically signed by Hollie Saenz 04-04-2024 5:17 PM MDM Narrative This patient is a 38-year-old male who presents to the emergency department for evaluation of left-sided facial pain and swelling. On exam patient has significant swelling in the maxillary region extending to the infraorbital region. He is afebrile. Labs revealed a leukocytosis of 16,000 and were otherwise unremarkable. CT of the face performed and shows a severe left-sided facial cellulitis with a periodontal abscess. Patient was given IV clindamycin. Pain was treated with Toradol, Tylenol and morphine. I discussed the case with the maxillofacial surgeon, Dr. Mosher who advised medical admission and he will see the patient in consult. Patient was agreeable with plan of care. Case was then discussed with the [place] hospitalist service who agreed to evaluate the patient for further care. Discharge Plan Visit Data Chief Complaint: Swelling/Edema to Extremity Stated Complaint: FACIAL EDEMA ED Provider: Jens Archuleta ED Midlevel Provider: Mary Moore
[2024-04-04] MEDS: KETOROLAC TROMETHAMINE 15 MG/ML VIAL IV STA (14:35)
[2024-04-04 16:21] LABS: Basophils # (auto) 0.03 K/uL (0.00-0.20); Basophils % (auto) 0.2 %; Eosinophils # (auto) 0.03 K/uL (0.00-0.50); Eosinophils % (auto) 0.2 %; Hemoglobin 15.2 g/dl (14.0-18.0); Immature Granulocytes # (auto) 0.06 K/uL (0.01-0.20); Immature Granulocytes % (auto) 0.4 %; Lymphocytes # (auto) 1.07 K/uL (1.20-3.40); Lymphocytes % (auto) 6.5 %; Mean Corpuscular Hemoglobin 31.7 pg (25.0-34.0); Mean Corpuscular Hgb Conc 34.5 g/dL (32.0-36.0); Mean Corpuscular Volume 91.7 fL (80.0-100.0); Mean Platelet Volume 10.5 fL (9.4-12.4); Monocytes # (auto) 1.47 K/uL (0.11-0.59); Neutrophils # (auto) 13.73 K/uL (1.40-6.50); Neutrophils % (auto) 83.7 %; Platelet Count 181 K/uL (130-400); RDW Coefficient of Variation 12.4 % (11.5-14.5); White Blood Count 16.39 K/ul (4.8-10.8)
[2024-04-04 16:34] LABS: Albumin Globulin Ratio 1.7 (0.9-2); BUN Creatinine Ratio 25.6 (10-20); Bilirubin,Total 1.1 mg/dl (0.2-1.0); Calcium 9.8 mg/dl (8.6-10.3); Creatinine Clr Calc Pharmacy 104.9 ml/min; Potassium 4.2 mmol/L (3.5-5.1)
[2024-04-04] MEDS: ONDANSETRON INJ 2 MG/ML 2 ML VIAL IV STA (16:48)
[2024-04-04] MEDS: OPTIRAY 320 100ml IV ONE (16:55)
--- NOTE | 2024-04-04 17:35 | CT Scan Report ---
EXAM: CT Maxillofacial With Intravenous Contrast INDICATION: Left facial swelling. Upper dental pain. TECHNIQUE: Axial computed tomography images of the face with intravenous contrast. Sagittal and coronal reformatted images were created and reviewed. This CT exam was performed using one or more of the following dose reduction techniques: automated exposure control, adjustment of the mA and/or kV according to patient size, and/or use of iterative reconstruction technique. CONTRAST: In theml of Optiray 320 was administered intravenously. COMPARISON: No relevant prior studies available. FINDINGS: Bones/joints: No osseous erosion. Soft tissues: There is severe left facial soft tissue swelling from the orbit to below the mandible. There is a left periodontal abscess along the maxilla measuring 2.2 cm AP by 0.9 cm transverse by 2.2 cm long. No soft tissue gas collection. Orbits: No abnormality noted. Sinuses: No layering fluid in the visualized portions of the paranasal sinuses. IMPRESSION: Severe left facial cellulitis with a 2.2 x 0.9 x 2.2 cm periodontal abscess along the left maxilla. ACT 112: Negative or not required by law. Electronically signed by Hollie Saenz 04-04-2024 5:17 PM
[2024-04-04] MEDS: ACETAMINOPHEN 1,000 MG/100 ML VIAL IV STA (18:01)
[2024-04-04] MEDS: MoRPHine SULFATE 4 MG/ML 1 ML CARP\\VIAL IV STA (18:13)
--- NOTE | 2024-04-04 19:12 | History & Physical Report ---
Date of Service April 04, 2024 Assessment & Plan (1) Facial cellulitis: Plan: with periodontal abscess IV Unasyn, no skin trauma to warrant MRSA coverage (source is periodontal) but if worsening will add this Consult oromaxillofacial surgery - Dr Mosher (ER discussed case with plan to see tomorrow) NPO after midnight (2) Cyclical vomiting: Plan: x3/year Ondansetron 4mg IV q4h PRN (3) Periodontal abscess: Plan Seizure disorder previously listed as diagnosis however patient reports no longer needing medication for this and he is seizure free VTE Prophylaxis - low risk Diet - clear liquids, NPO at midnight Disposition - observation to med/surg Admission and Anticipated Discharge Date Admission Date: April 04, 2024 History of Present Illness Chief Complaint: Left facial swelling Primary Care Provider: DO Rohith Davis Landry is a 38 year old male who presents to the ER with left facial swelling and chills. He initially had oral surgery with bottom left implant screw. He was placed on amoxicillin for prophylaxis at that time. 2 weeks follow the antibiotics started his cyclic vomiting syndrome and he had diarrhea (non watery), nausea and vomiting for 2 weeks but managed to stay out of hospital. 5 days ago (Monday) his recent issues started with pain in between two teeth on the upper left side of his mouth. 3 days ago (Monday) he saw his dentist for this with XRs taken and some concern for bacterial build up but was not prescribed any antibiotics - prescribed clove oil and recommended "oil pulling". This oild caused irritation of his mouth the following day (Monday) and swelling of his face started that night and he found it difficult to sleep. Chills started yesterday and the swelling and erythema has significantly increased therefore decided to come [facility]. ER provider discussed with Dr Mosher and recommended admission for IV antibiotics, NPO at midnight and will be seen in consult. Allergies Allergy/AdvReac Type Severity Reaction Status Date / Time Sulfa (Sulfonamide Allergy Unknown "SULFA = Verified 01/31/24 09:48 Antibiotics) UNSURE OF REACTION" Home Medications Medication Instructions Recorded Confirmed Type coenzyme Q10 100 mg capsule 200 mg PO DAILY 01/26/22 04/04/24 History (CoQ-10) magnesium oxide 500 mg PO DAILY 01/26/22 04/04/24 History Beef Liver 1 dose PO DAILY 04/04/24 04/04/24 History Lactobacillus acidophilus 10 10,000 mmu cells PO DAILY 04/04/24 04/04/24 History billion cell capsule (Probiotic) Grant Iodine 1 dose PO DAILY 04/04/24 04/04/24 History acetylcarnitine 500 mg capsule 500 mg PO DAILY 04/04/24 04/04/24 History ascorbic acid (vitamin C) 1,000 mg 1 g PO DAILY 04/04/24 04/04/24 History tablet (Vitamin C) digestive enzymes 1 cap PO DAILY 04/04/24 04/04/24 History vitamin B complex 1 tab PO DAILY 04/04/24 04/04/24 History zinc gluconate 50 mg tablet 50 mg PO DAILY 04/04/24 04/04/24 History Past Med/Surg History Problem List (Updated 04/04/24 @ 21:40 by Rodney Walton MD) Facial cellulitis Periodontal abscess Cyclical vomiting See prior GI notes from [facility]. Review from progress notes 09/11/2023 ADD (attention deficit disorder) (Chronic) Anxiety Medical History (Updated 04/04/24 @ 21:40 by Rodney Walton MD) Seizure disorder Alcohol use disorder, severe, dependence Substance induced mood disorder Fracture of radius, distal, left, closed Cannabis use disorder, severe, dependence Abrasion, hand Encephalopathy Temporal lobe seizure Seizures Seizure-like activity Neck pain Gastroparesis Suicidal ideation Overdose (05/28/14) Depression Seizures OCD (obsessive compulsive disorder) provisional Surgical History History of surgery on wrist No significant past surgical history Family History Father Mother Skin cancer Other No significant family history Denies family history of Ovarian cancer Prostate cancer Myocardial infarction Breast cancer Lung cancer Colorectal cancer Hypertension Social History Smoking Status: Never smoker Tobacco Type: Cigarettes Age Started Using Tobacco: 17; Age Quit Using Tobacco: 33; packs per day: 1; Second Hand Exposure: No; Do You Dip or Chew Tobacco: No; Hx Alcohol Use: Yes Alcohol type: wine Hx Substance Use: Yes Prescribed Medications: Marijuana Last Used Substance: Days (ago) Preferred Language: Citizen Of [place] Communication Ability: Effective Visual Impairment: Limited Hearing Ability: Normal Document Reviewer Required: No Beliefs That Will Affect Care: None marital status: Single Current Living Situation: Parent current occupational status: employed current occupation: [employer] Feels Safe at Home: Yes Childhood Exposure to Second-Hand Smoke: Yes Diet: regular Diet Comment: organic caffeine: Yes Dental Care, Regularly: Yes Physical Activity Frequency: 5-6 Times per Week Physical Activity Frequency Comment: run, cross country skiing weights and cardio Seatbelt Use: always Sunscreen Use: No Gender Identity: Male Assistive Devices: Brace/Splint/Immobilizer and Glasses Review of Systems 2 Review of Systems: All systems reviewed & are unremarkable except as noted in HPI & below Physical Exam 2 Constitutional: WD/WN, vitals as above Eyes: PERRL, conjunctivae normal, anicteric sclerae EOM intact bilaterally (without diplopia) Respiratory: normal respiratory effort, lungs clear to auscultation no stridor Cardiovascular: RRR, no murmur, no edema Gastrointestinal (Abdomen): normal bowel sounds, soft, nontender, no hepatosplenomegaly Skin: Erythema warmth and swelling to left side of face from Psychiatric: A+Ox3, euthymic affect Results & Data Results & Data Vital Signs (Past 12 Hours) Vital Signs Temp Pulse Pulse Resp BP BP Pulse Ox 04/04/24 19:00 55 L 19 120/85 97 04/04/24 17:00 74 18 121/75 98 04/04/24 15:59 74 22 125/70 98 04/04/24 14:03 37.3 C 69 18 129/77 99 O2 Del Method 04/04/24 19:00 Room Air 04/04/24 17:00 Room Air 04/04/24 15:59 Room Air 04/04/24 14:03 Laboratory Results Abnormal lab results 04/04/24 Range/Units 15:59 WBC 16.39 H (4.8-10.8) K/ul Neut # (Auto) 13.73 H (1.40-6.50) K/uL Lymph # (Auto) 1.07 L (1.20-3.40) K/uL [place] # (Auto) 1.47 H (0.11-0.59) K/uL BUN/Creatinine Ratio 25.6 H (10-20) Total Bilirubin 1.1 H (0.2-1.0) mg/dl Diagnostic Findings CT Maxillofacial With Intravenous Contrast INDICATION: Left facial swelling. Upper dental pain. TECHNIQUE: Axial computed tomography images of the face with intravenous contrast. Sagittal and coronal reformatted images were created and reviewed. This CT exam was performed using one or more of the following dose reduction techniques: automated exposure control, adjustment of the mA and/or kV according to patient size, and/or use of iterative reconstruction technique. CONTRAST: In theml of Optiray 320 was administered intravenously. COMPARISON: No relevant prior studies available. FINDINGS: Bones/joints: No osseous erosion. Soft tissues: There is severe left facial soft tissue swelling from the orbit to below the mandible. There is a left periodontal abscess along the maxilla measuring 2.2 cm AP by 0.9 cm transverse by 2.2 cm long. No soft tissue gas collection. Orbits: No abnormality noted. Sinuses: No layering fluid in the visualized portions of the paranasal sinuses. IMPRESSION: Severe left facial cellulitis with a 2.2 x 0.9 x 2.2 cm periodontal abscess along the left maxilla. Medications Administered ER Medications Given: Toradol 15mg IV Morphine 4mg IV Ondansetron 4mg IV Clindamycin 600mg IV Acetaminophen 1000mg IV Code Status & VTE Plan Code Status Full VTE Prophylaxis Plan VTE Prophylaxis will be ordered: No PG Care Time/CCT Total # of Minutes Spent Total Time Spent with Patient: Total time spent is greater than 50% in coordination of care (as documented) at patient's floor/unit and/or counseling patient: Coding Level of Care Code 09761 INT INP/OBS CARE 2MIN Diagnoses Facial cellulitis L03.211 Cyclical vomiting G43.A0 Periodontal abscess K05.219
[2024-04-04] MEDS: CLINDAMYCIN/D5W 600 MG/50 ML BAG IV ONE (19:28)
[2024-04-04] MEDS ORDERED: MoRPHine SULFATE 2 MG/ML CARP IV PRN (20:30)
[2024-04-04] MEDS: KETOROLAC TROMETHAMINE 15 MG/ML VIAL IV PRN (20:40)
[2024-04-04] MEDS ORDERED: oxyCODONE HCL IR 5 MG TAB (IMMEDIATE RELEASE) PO PRN (21:11)
[2024-04-04] MEDS: AMPICILLIN/SULBACTAM SOD 3,000 MG/100 ML BAG IV SCH (21:27)
[2024-04-04] MEDS: ONDANSETRON INJ 2 MG/ML 2 ML VIAL IV PRN (21:27)
[2024-04-04] MEDS: SODIUM CHLORIDE 0.9% 1,000 ML IV SCH (22:09)
[2024-04-04] MEDS: oxyCODONE HCL IR 5 MG TAB (IMMEDIATE RELEASE) PO PRN (22:16)
[2024-04-05] MEDS: MoRPHine SULFATE 4 MG/ML 1 ML CARP\\VIAL IV PRN (01:27)
[2024-04-05 07:49] LABS: Basophils # (auto) 0.04 K/uL (0.00-0.20); Basophils % (auto) 0.3 %; Eosinophils # (auto) 0.04 K/uL (0.00-0.50); Eosinophils % (auto) 0.3 %; Hematocrit (blood only) 39.1 % (42.0-52.0); Hemoglobin 13.2 g/dl (14.0-18.0); Immature Granulocytes # (auto) 0.09 K/uL (0.01-0.20); Immature Granulocytes % (auto) 0.6 %; Lymphocytes # (auto) 1.21 K/uL (1.20-3.40); Lymphocytes % (auto) 7.6 %; Mean Corpuscular Hemoglobin 31.5 pg (25.0-34.0); Mean Corpuscular Hgb Conc 33.8 g/dL (32.0-36.0); Mean Corpuscular Volume 93.3 fL (80.0-100.0); Mean Platelet Volume 10.6 fL (9.4-12.4); Monocytes # (auto) 1.68 K/uL (0.11-0.59); Monocytes % (auto) 10.5 %; Neutrophils # (auto) 12.93 K/uL (1.40-6.50); Neutrophils % (auto) 80.7 %; Platelet Count 169 K/uL (130-400); RDW Coefficient of Variation 12.8 % (11.5-14.5); RDW Standard Deviation 43.9 fL (36.4-46.3); Red Blood Count 4.19 M/uL (4.70-6.10); White Blood Count 15.99 K/ul (4.8-10.8)
[2024-04-05 08:39] LABS: Potassium 4.5 mmol/L (3.5-5.1)
[2024-04-05 08:45] LABS: BUN Creatinine Ratio 17.8 (10-20); Creatinine Clr Calc Pharmacy 91.4 ml/min
--- NOTE | 2024-04-05 09:20 | Oral/Maxillofacial Consult ---
Date of Consultation April 05, 2024 Assessment & Plan (1) Facial cellulitis: (2) Periodontal abscess: History of Present Illness Attending Physician: Jayde Resendiz MD History of Present Illness Oral Maxillofacial Surgery Exam Present Complaint: Pain/swelling/drainage upper left face and eye, large large abscess infraorbital area need emergency drainage MARCO ANTONIO Symptoms have been ongoing for a while at least 1 week Oral Exam: Finding--Very swollen and tender gingival tissue with deep pocket formation.Not related to teeth but looks to be a isolated soft tissue problem-infection Imaging: EXAM: CT Maxillofacial With Intravenous Contrast INDICATION: Left facial swelling. Upper dental pain. FINDINGS: Bones/joints: No osseous erosion. Soft tissues: There is severe left facial soft tissue swelling from the orbit to below the mandible. There is a left periodontal abscess along the maxilla measuring 2.2 cm AP by 0.9 cm transverse by 2.2 cm long. No soft tissue gas collection. Orbits: No abnormality noted. Sinuses: No layering fluid in the visualized portions of the paranasal sinuses. IMPRESSION: Severe left facial cellulitis with a 2.2 x 0.9 x 2.2 cm periodontal abscess along the left maxilla. The CT was reviewed, there were no abnormal findings other then the left side facial abscess at least 2 cm The TMJ are well positioned and no evidence of bony pathology. The sinus, supporting bone all WNL Dental large restorations. Soft tissue: The left mucobuccal and infraorbital area is swollen as is the periorbital area left eye, cheek and upper lip. The floor of the mouth, tongue, hard/soft palate, posterior pharyngeal area all with in normal limits, no pathology or abnormal findings noted. No lesions noted that require follow up or Bx. Oral Care: Overall oral care is fair Occlusion: Class I missing teeth, # 19 implant placed 6 weeks ago looks very good TMJ exam: No pop, clicking, pain, good ROM, No history of TMJ injury or dysfunction Periodontal exam: Mild gingival inflammation (generalized) gingival tissue with evidence of early periodontal pathology. Head/Neck exam: Neck is supple, FROM, Able to extend and flex neck w/o difficulty, no masses, no abnormalities, no airway issues, no evidence of sleep apnea. Treatment Plan: Set up with general anesthesia in hospital for I&D only- due to complexity of the procedure. Understanding was expressed. Time was given for questions regarding the surgery, risks and post op care. Discussed alternative to treatment--procedure as planned, Do not do surgery Risks discussed: Bleeding,Pain,swelling,infection, dry socket, delayed healing, nerve injury to face,lips,tongue,chin area which could be permanent (rare). Many need dental care upper teeth as per dentist TMJ, jaw stiffness, change in bite (rare), ear pain (referred). Sinus problems like fistula or infection. May need periodontal care in future Home care reviewed: tooth brushing, rinsing, follow up care with Dr Mosher. diet=[id number] dental. Discussed activity level, driving/work while on Rx pain Meds. follow up with dentist, crowd controller and OMS for implant Surgery to be set up for I&D left infraorbital and mucobuccal area left maxilla Allergies Allergy/AdvReac Type Severity Reaction Status Date / Time Sulfa (Sulfonamide Allergy Unknown "SULFA = Verified 01/31/24 09:48 Antibiotics) UNSURE OF REACTION" Home Medications Medication Instructions Recorded Confirmed Type coenzyme Q10 100 mg capsule 200 mg PO DAILY 01/26/22 04/04/24 History (CoQ-10) magnesium oxide 500 mg PO DAILY 01/26/22 04/04/24 History Beef Liver 1 dose PO DAILY 04/04/24 04/04/24 History Lactobacillus acidophilus 10 10,000 mmu cells PO DAILY 04/04/24 04/04/24 History billion cell capsule (Probiotic) [place] Iodine 1 dose PO DAILY 04/04/24 04/04/24 History acetylcarnitine 500 mg capsule 500 mg PO DAILY 04/04/24 04/04/24 History ascorbic acid (vitamin C) 1,000 mg 1 g PO DAILY 04/04/24 04/04/24 History tablet (Vitamin C) digestive enzymes 1 cap PO DAILY 04/04/24 04/04/24 History vitamin B complex 1 tab PO DAILY 04/04/24 04/04/24 History zinc gluconate 50 mg tablet 50 mg PO DAILY 04/04/24 04/04/24 History Patient History Medical History (Updated 04/04/24 @ 21:40 by Rodney Walton MD) Seizure disorder Alcohol use disorder, severe, dependence Substance induced mood disorder Fracture of radius, distal, left, closed Cannabis use disorder, severe, dependence Abrasion, hand Encephalopathy Temporal lobe seizure Seizures Seizure-like activity Neck pain Gastroparesis Suicidal ideation Overdose (05/28/14) Depression Seizures OCD (obsessive compulsive disorder) provisional Surgical History History of surgery on wrist No significant past surgical history Family History Father Mother Skin cancer Other No significant family history Denies family history of Ovarian cancer Prostate cancer Myocardial infarction Breast cancer Lung cancer Colorectal cancer Hypertension Social History Smoking Status: Never smoker Tobacco Type: Cigarettes Age Started Using Tobacco: 17; Age Quit Using Tobacco: 33; packs per day: 1; Second Hand Exposure: No; Do You Dip or Chew Tobacco: No; Hx Alcohol Use: No Hx Substance Use: Yes Prescribed Medications: Marijuana Last Used Substance: Days (ago) Last Used Substance Other:: Last used 04/03 per pt Preferred Language: Faroese Communication Ability: Effective Visual Impairment: Limited Hearing Ability: Normal Wet Pour Supervisor Required: No Beliefs That Will Affect Care: None marital status: Single Current Living Situation: Alone current occupational status: employed 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 Other Information That Helps Us Care for You: No Feels Safe at Home: Yes Safety Concerns: Feels Safe At This Time Childhood Exposure to Second-Hand Smoke: Yes Diet: regular Diet Comment: organic caffeine: Yes Dental Care, Regularly: Yes Physical Activity Frequency: 5-6 Times per Week Physical Activity Frequency Comment: run, cross country skiing weights and cardio Seatbelt Use: always Sunscreen Use: No Gender Identity: Male Assistive Devices: Glasses Results & Data Vital Signs (Past 12 Hours) Vital Signs Temp Pulse Resp BP Pulse Ox O2 Del Method 04/05/24 06:59 37.5 C 64 16 106/58 L 97 Room Air PG Care Time/CCT Total # of Minutes Spent Total Time Spent with Patient: Total time spent is greater than 50% in coordination of care (as documented) at patient's floor/unit and/or counseling patient: Coding Level of Care Code 17108 IN/OBS CONSULT LVL 2,35M Diagnoses Facial cellulitis L03.211 Periodontal abscess K05.219
[2024-04-05] MEDS: ADVANCED PROBIOTIC 625 MG CAPSULE PO SCH (10:12)
--- NOTE | 2024-04-05 11:40 | Hospitalist Progress Note ---
<Statement entered by Jayde Resendiz MD - 04/05/24 13:55> I have reviewed vital signs, chart notes, labs and imaging. I have also discussed the management of the patient with the CRISTIN and I agree with the exam findings documented in the history and physical examination and the documented assessment and plan unless otherwise stated below. Date of Service April 05, 2024 Assessment & Plan (1) Facial cellulitis: Plan: Acute severe secondary to periodontal abscess - IV Unasyn, no skin trauma to warrant MRSA coverage - Oromaxillofacial surgery - Dr Mosher, appreciate assistance, plans for OR this afternoon - Maintain NPO status until after surgery - IV morphine for pain but will d/c after surgery and switch to percocet - APAP for mild pain or fever - Ketorolac 15mg IV q6 prn mild-moderate pain (2) Cyclical vomiting: Plan: x3/year - Ondansetron 4mg IV q4h PRN (3) Periodontal abscess: Plan: - As above Plan Seizure disorder previously listed as diagnosis however patient reports no longer needing medication for this and he is seizure free VTE Prophylaxis - low risk Diet - clear liquids, NPO at midnight Disposition - observation to med/surg Plan as outlined above. Can advanced diet following surgery, pain control, continued IV abx with transition to Augmentin upon d/c. Probably d/c home tomorrow 04/06. Plan d/w Dr. Resendiz. Admission and Anticipated Discharge Date Admission Date: April 04, 2024 Solis Newberry was seen and examined on daily rounds this morning. He was admitted with a periodontal infection with abscess and is currently being treated with IV antibiotics. He endorses a significant amount of pain of which responds only briefly to IV morphine. He was see this AM by Dr. Mosher who plans to take him to the OR for I&D. Review of Systems 2 Review of Systems: All systems reviewed and are unremarkable except as noted in HPI and below. Denies fever, chills, fatigue, headache, nasal congestion, sore throat, cough, chest pain, shortness of breath, palpitations, orthopnea, PND, abdominal pain, n/v/d, constipation, dysuria, hematuria, frequency, back pain, joint pain or swelling, easy bruising or bleeding, skin lesions or rashes. Physical Exam 2 Physical Exam: GENERAL: 38 yo well-developed, well-nourished WM. A&Ox4. NAD. HENT: marked edema left side of face extending to left periorbital area LUNGS: Clear to auscultation bilaterally. No W/R/R. CARDIOVASCULAR: Regular rate and rhythm. Results & Data Results & Data Vital Signs (Past 12 Hours) Vital Signs Temp Pulse Resp BP Pulse Ox O2 Del Method 04/05/24 06:59 37.5 C 64 16 106/58 L 97 Room Air Laboratory Results 04/05/24 06:50 04/05/24 06:50 PG Care Time/CCT Total # of Minutes Spent Total Time Spent with Patient: Total time spent is greater than 50% in coordination of care (as documented) at patient's floor/unit and/or counseling patient: 37 minutes Coding Level of Care Code 79323 SUB INP/OBS CARE 2/35MIN Diagnoses Facial cellulitis L03.211 Cyclical vomiting G43.A0 Periodontal abscess K05.219
--- NOTE | 2024-04-05 13:52 | Anesthesiology Consultation ---
Date of Service April 05, 2024 Assessment & Plan (1) Encounter for pre-operative examination: Chart Review Chart Review: Acceptable Risk for Surgery History Surgery Operation Date: 04/05/24 15:15 Proposed Procedures p Left Facial Incision and Drainage - Layo Mosher DMD Height/Weight Height: 5 ft 7 in Weight: 57.5 kg Allergies Allergy/AdvReac Type Severity Reaction Status Date / Time Sulfa (Sulfonamide Allergy Unknown "SULFA = Verified 01/31/24 09:48 Antibiotics) UNSURE OF REACTION" Medications Home Medications Medication Instructions Recorded Confirmed Last Taken coenzyme Q10 100 mg capsule 200 mg PO DAILY 01/26/22 04/04/24 07/13/22 (CoQ-10) magnesium oxide 500 mg PO DAILY 01/26/22 04/04/24 07/13/22 Beef Liver 1 dose PO DAILY 04/04/24 04/04/24 Unknown Lactobacillus acidophilus 10 10,000 mmu cells PO DAILY 04/04/24 04/04/24 Unknown billion cell capsule (Probiotic) [place] Iodine 1 dose PO DAILY 04/04/24 04/04/24 Unknown acetylcarnitine 500 mg capsule 500 mg PO DAILY 04/04/24 04/04/24 Unknown ascorbic acid (vitamin C) 1,000 mg 1 g PO DAILY 04/04/24 04/04/24 Unknown tablet (Vitamin C) digestive enzymes 1 cap PO DAILY 04/04/24 04/04/24 Unknown vitamin B complex 1 tab PO DAILY 04/04/24 04/04/24 Unknown zinc gluconate 50 mg tablet 50 mg PO DAILY 04/04/24 04/04/24 Unknown Active Medications Generic Name Dose Route Start Last Admin Trade Name Freq PRN Reason Stop Dose Admin Ampicillin Sodium/Sulbactam Sodium 3,000 mg in 100 mls @ 200 mls/hr 04/04/24 20:30 04/05/24 10:46 Unasyn IV 04/14/24 20:29 Infused Q6H VIKTOR Infusion Sodium Chloride 1,000 mls @ 125 mls/hr 04/04/24 22:00 04/05/24 06:02 Nss IV 04/05/24 13:59 125 mls/hr .Q8H VIKTOR Administration Ketorolac Tromethamine 15 mg 04/04/24 20:27 04/05/24 02:57 Ketorolac Tromethamine 15 Mg/Ml Vial IV 04/09/24 20:26 15 mg Q6H PRN Administration Pain Lactobacillus Acidophilus 1,250 mg 04/05/24 09:00 04/05/24 10:12 Advanced Probiotic 625 Mg Capsule PO 05/05/24 08:59 1,250 mg DAILY VIKTOR Administration Morphine Sulfate 4 mg 04/04/24 20:30 04/05/24 09:13 Morphine Sulfate 4 Mg/Ml 1 Ml Carp\\Vial IV 04/18/24 20:29 4 mg Q3H PRN Administration Pain (6,7,8,9,10) Ondansetron HCl 4 mg 04/04/24 21:10 04/05/24 08:44 Ondansetron Inj 2 Mg/Ml 2 Ml Vial IV 05/04/24 21:09 4 mg Q4H PRN Administration Nausea NPO Date Last Intake of Fluids: 04/04/24 Time Last Intake of Fluids: 23:00 Date Last Intake of Solids: 04/04/24 Time Last Intake of Solids: 23:00 Past Medical History Medical History Seizure disorder Alcohol use disorder, severe, dependence Substance induced mood disorder Fracture of radius, distal, left, closed Cannabis use disorder, severe, dependence Abrasion, hand Encephalopathy Temporal lobe seizure Seizures Seizure-like activity Neck pain Gastroparesis Suicidal ideation Overdose (05/28/14) Depression Seizures OCD (obsessive compulsive disorder) provisional Past Family History Family History Father Mother Skin cancer Other No significant family history Denies family history of Ovarian cancer Prostate cancer Myocardial infarction Breast cancer Lung cancer Colorectal cancer Hypertension Past Surgical History Surgical History History of surgery on wrist No significant past surgical history Social History Smoking Status: Never smoker tobacco type: cigarettes Do You Dip or Chew Tobacco: No Hx Alcohol Use: No Alcohol type: wine alcohol intake frequency: a few times a week Hx Substance Use: Yes substance use type: marijuana Last Used Substance: Days (ago) Last Used Substance Other:: Last used 04/03 per pt Physical Exam Vital Signs Last Vital Signs Temp 37.1 C 04/05/24 12:26 Pulse 65 04/05/24 12:26 Resp 18 12/13/24 12:26 BP 113/65 04/05/24 12:26 Pulse Ox 99 04/05/24 12:26 O2 Del Method Room Air 04/05/24 12:26 Testing Laboratory Results 04/05/24 06:50 04/05/24 06:50
[2024-04-05] MEDS ORDERED: ATROPINE SULFATE 0.1 MG/ML 10ML SYR IV PRN (13:54)
[2024-04-05] MEDS ORDERED: KETOROLAC 30 MG/ML VIAL IV PRN (13:54)
[2024-04-05] MEDS ORDERED: DROPERIDOL 5 MG/2 ML VIAL IV PRN (13:54)
[2024-04-05] MEDS ORDERED: ROCURONIUM BROMIDE 10 MG/ML 5 ML VIAL IV ONE (13:57)
[2024-04-05] MEDS ORDERED: PROPOFOL IV EMULSION 10 MG/ML 20 ML VIAL IV ONE (13:57)
[2024-04-05] MEDS ORDERED: MIDAZOLAM HCL 1 MG/ML 2ML VIAL ONE (13:58)
[2024-04-05] MEDS ORDERED: fentaNYL citrate PF 100 MCG/2 ML VIAL ONE (13:58)
[2024-04-05] MEDS ORDERED: LIDOCAINE 2% 2 ML VIAL/AMP(20MG/ML) INFIL ONE ×3 (14:00)
--- NOTE | 2024-04-05 14:06 | History & Physical Bridge Note ---
Date of Service April 05, 2024 History & Physical Bridge Note I have examined the patient, reviewed the History & Physical and in the interval since the performance of the History & Physical I have noted the following changes of clinical significance: no changes noted. OK for the planned I&D
[2024-04-05] MEDS: CHLORHEXIDINE GLUCONATE 0.12% 480 ML MT ONE (14:50)
[2024-04-05] MEDS ORDERED: DEXAMETHASONE SOD INJ 4 MG/ML VIAL ONE (14:54)
[2024-04-05] MEDS ORDERED: ONDANSETRON INJ 2 MG/ML 2 ML VIAL ONE (14:54)
[2024-04-05] MEDS ORDERED: SUGAMMADEX SODIUM 200 MG/2 ML VIAL IV ONE (15:04)
[2024-04-05] MEDS: BUPIVACAINE/EPINEPHRINE 0.5% 1:200,000 1.8 ML CARP ONE (15:05)
[2024-04-05] MEDS: HYDROmorphone INJ 1 MG/ML SYRINGE IV PRN (15:30)
--- NOTE | 2024-04-05 15:58 | Post Operative Brief Note ---
PG Immediate Post Op with CF Date of Surgery April 05, 2024 Pre & Post Diagnosis Operation Date: 04/05/24 15:15 Pre-Op Diagnosis: Severe Left Facial Cellulitis with Periodontal Abscess Post-Op Diagnosis: Severe Left Facial Cellulitis with Periodontal Abscess I identified the patient and participated in the time-out.: Yes Procedure Operation Date: 04/05/24 15:15 Actual Procedures p Left Facial Incision and Drainage(Left) - Layo Mosher DMD Surgeon Layo Mosher, ROJAS Metal Cut Off Saw Operator none Estimated Blood Loss 2 Findings Consistent with Post-Op Diagnosis acute left face infection Specimens Specimen Description: 1. Left Infraorbital Abscess Complications none Disposition Accompanied Patient To Recovery: Yes
[2024-04-05 16:13] VITALS: RESP 16
--- NOTE | 2024-04-05 16:56 | Anesthesiology Progress Note ---
Date of Service April 05, 2024 Anesthesia Post Procedure Vital Signs Vital Signs: Temp Pulse Pulse Pulse Resp BP BP 04/05/24 16:30 37.0 C 55 L 16 111/66 04/05/24 16:10 68 16 04/05/24 16:00 36.8 C 56 L 17 04/05/24 15:50 52 L 14 04/05/24 15:40 60 14 04/05/24 15:30 52 L 12 04/05/24 15:20 58 L 18 04/05/24 15:18 36.9 C 64 15 04/05/24 12:26 37.1 C 65 18 04/05/24 06:59 37.5 C 64 16 04/04/24 20:15 36.6 C 49 L 16 04/04/24 20:00 60 18 124/79 04/04/24 19:00 55 L 19 04/04/24 17:00 74 18 BP Pulse Ox O2 Del Method O2 Flow Rate 04/05/24 16:30 96 Room Air 04/05/24 16:10 111/69 99 Room Air 04/05/24 16:00 115/69 98 Room Air 04/05/24 15:50 109/63 96 Room Air 04/05/24 15:40 112/62 100 Oxymask 3 04/05/24 15:30 113/65 99 Oxymask 3 04/05/24 15:20 114/64 100 Oxymask 6 04/05/24 15:18 117/68 100 Oxymask 6 04/05/24 12:26 113/65 99 Room Air 04/05/24 06:59 106/58 L 97 Room Air 04/04/24 20:15 127/75 99 Room Air 04/04/24 20:00 99 Room Air 04/04/24 19:00 120/85 97 Room Air 04/04/24 17:00 121/75 98 Room Air Pain Intensity Left Face: Pain Intensity: 6 Transfer of Care Handoff Completed per policy Notes Mental Status: alert / awake / arousable Patient Amnestic to Procedure: Yes Nausea / Vomiting: adequately controlled Pain: adequately controlled Airway Patency, RR, SpO2: stable & adequate BP & HR: stable & adequate Hydration State: stable & adequate Anesthetic Complications: no major complications apparent
[2024-04-05] MEDS: ACETAMINOPHEN 325 MG TAB PO PRN (19:57)
[2024-04-05 23:36] LABS: Appearance Urine Clear (Clear); Bilirubin Urine Negative (Negative); Blood Urine Negative (Negative); Color Urine Yellow; Glucose Urine UA 1+ (Negative); Ketones Urine Negative (Negative); Leukocyte Esterase Urine Negative (Negative); Nitrite Urine Negative (Negative); Protein Urine Negative (Negative); Specific Gravity Urine 1.019 (1.000-1.030); Urobilinogen Urine Negative (Negative)
[2024-04-06] MEDS: MELATONIN 3 MG TAB PO STA (01:07)
[2024-04-06 04:03] VITALS: PULSE 46
[2024-04-06 07:22] VITALS: BP 110/58; TEMP 98.2; O2SAT 99
--- NOTE | 2024-04-06 11:00 | Oral/Maxillofacial Progress Nt ---
Date of Service April 06, 2024 Assessment & Plan Admission and Anticipated Discharge Date Admission Date: April 04, 2024 Subjective Post Op infection evaluation 24 hours The infected area is resolving very well. Swelling is all most gone and the tissue is almost back to normal size and texture. No further drainage is noted. Cultures pending Infection has responded very well to the antibiotics and the I and D. I requested that the patient continue with oral care and Peridex rinses At this time the area has responded well to treatment, no further treatment needed. I will follow in office Rx Augmentin, Vicodin and Zofran Results & Data Vital Signs (Past 12 Hours) Vital Signs Temp Pulse Resp BP BP Pulse Ox O2 Del Method 04/06/24 07:19 36.8 C 46 L 16 110/58 L 99 Room Air 04/06/24 04:02 36.6 C 46 L 16 100/56 L 100 Room Air PG Care Time/CCT Total # of Minutes Spent Total Time Spent with Patient: Total time spent is greater than 50% in coordination of care (as documented) at patient's floor/unit and/or counseling patient: Coding Level of Care Code None
--- NOTE | 2024-04-06 13:44 | Hospitalist Progress Note ---
Date of Service April 06, 2024 Assessment & Plan (1) Facial cellulitis: Plan: Acute severe secondary to periodontal abscess - S/P I&D yesterday w/ Dr. Mosher. Dr. Mosher approved for discharge, start on Augmentin. Vicodin and Zofran ordered for pain and nausea. - Cultures pending. - Continue with oral care and peridex rinses. (2) Cyclical vomiting: Plan: x3/year - Ondansetron (3) Periodontal abscess: Plan: - As above Plan Seizure disorder previously listed as diagnosis however patient reports no longer needing medication for this and he is seizure free Disposition - discharge to home. Admission and Anticipated Discharge Date Admission Date: April 04, 2024 Subjective Rohith is feeling much better today. He is sp L facial I&D yesterday. The infected area is improving, swelling is decreased. Patient reports significant improvement. Mild swelling still noted. Culture are still pending. Review of Systems Constitutional: no fever and no chills Eyes: no problem reported Ear, Nose, Mouth, Throat: + problem reported (L facial swelling, m uch improved from yesterday s/p I&D) Respiratory: no cough and no dyspnea Cardiovascular: no chest pain Gastrointestinal: no abdominal pain, no nausea and no vomiting Integumentary: no lesions Physical Exam Constitutional: well developed and well nourished ENMT: L sided facial swelling noted. Respiratory: normal respiratory effort; no respiratory distress Auscultation: lungs clear to auscultation bilaterally Cardiovascular: Rate/Rhythm: regular rate and regular rhythm Gastrointestinal (Abdomen): Inspection/Auscultation: normal bowel sounds Percussion/Palpation: abdomen soft; abdomen nontender Skin: no rashes, warm and dry Results & Data Results & Data Vital Signs (Past 12 Hours) Vital Signs Temp Pulse Resp BP BP Pulse Ox O2 Del Method 04/06/24 11:14 36.8 C 46 L 16 100/56 L 110/58 L 99 04/06/24 07:19 36.8 C 46 L 16 110/58 L 99 Room Air 04/06/24 04:02 36.6 C 46 L 16 100/56 L 100 Room Air PG Care Time/CCT Total # of Minutes Spent Total Time Spent with Patient: Total time spent is greater than 50% in coordination of care (as documented) at patient's floor/unit and/or counseling patient: Coding [place] [address] SUB INP/OBS CARE 235MIN Patient Type Established History Expanded Problem Focused Exam Expanded Problem Focused Medical Decision Making Moderate Complexity Diagnoses Facial cellulitis L03.211 Cyclical vomiting G43.A0 Periodontal abscess K05.219
--- NOTE | 2024-04-06 18:46 | Operative Report ---
PG Post Operative Report Pre & Post Diagnosis Operation Date: 04/05/24 15:15 Pre-Op Diagnosis: Severe Left Facial Cellulitis with Periodontal Abscess Post-Op Diagnosis: Severe Left Facial Cellulitis with Periodontal Abscess I identified the patient and participated in the time-out.: Yes Procedure Operation Date: 04/05/24 15:15 Actual Procedures p Left Facial Incision and Drainage(Left) - Layo Mosher DMD Surgeon Layo Mosher DMD Director Funeral none Estimated Blood Loss 2 Findings Consistent with Post-Op Diagnosis Specimens C&S culture Drains none Anesthesia Type General Complications none Disposition Accompanied Patient To Recovery: Yes Indications acute facial and infraorbital swelling left cheek and eye Description of Procedure p Incision and Drainage left maxillary vestibule and infraorbital space Abscess; - Layo Mosher DMD ICD 10 K12.2 , L03.211 CPT 08955 and [address] I & D of deep subcutaneous abscess of the inferior orbital and vestibular space of left maxilla Once cleared for surgery general anesthesia was achieved, the eyes were protected by the anesthesia dept criteria. A time out was take for patient ID, antibiotics, equipment and position verification once all agreed the procedure began. Local anesthesia using Marcaine with a vasoconstrictor ( 1.8 ml per site) given into left posterior maxilla A throat pack was placed after the oral cavity was irrigated with saline. Once a surgical level of anesthesia was obtained and the local anesthesia was given time for the blocks the surgery was started. I turned my attention to the infection which was located in the in the left cheek,left vestibule, left tuberosity area, Infraorbital fossa area Incision and Drainage -----CPT 49311 and 48478 ICD10 K12.2 , L03.211 Using a 15 blade an incision was made in the posterior aspect of the vestibular area upper left side. Once the incision was made a lot of pus extruded from the site. This drainage was cultured for anaerobic and aerobic bacteria. A curved hemostat was carefully placed superior into the infected space to drain the infraorbital space. To gain access to the pocket of pus in the cheek another incision was made in the vestibule. This allowed further drainage to escape. I palpated the face and cheek area and no further drainage was expressed. The area was irrigated with at least 100 ml of NS solution. With a 4-0 Vicryl suture the tissue sites were closed to allow the tissue to be repositioned yet to still allow dependent drainage. I inspected the site to insure all bleeding was controlled and there was good drainage noted. I removed the throat pack and suctioned the throat. An OG tube was passed and the GI contents were evaluated. A gauze pressure dressings was placed. All instrument and sponge count was correct. The patient was allowed to awake from the anesthesia. Once full awake the anesthesia tube was removed and the patient was taken to the recovery room with all vital sign stable. The patient tolerated the surgery very well. I will follow the patient in my office, Rx and instructions will be given upon discharge. He will need to follow up with his dentist for on going care, periodontal care and voodoo of the # 19 implant by his dentist. I attest to the content of the Intraoperative Record and any orders documented therein. Any exceptions are noted below.
--- NOTE | 2024-04-08 16:19 | Discharge Summary ---
Date of Service April 07, 2024 Rohith is doing well and can be discharged this morning. I reviewed home care and oral care with Rohith. Overall he is doing well and can be discharged. Post Op infection evaluation 24 hours The infected area is resolving very well. Swelling is all most gone and the tissue is almost back to normal size and texture. No further drainage is noted. Cultures pending Infection has responded very well to the antibiotics and the I and D. I requested that the patient continue with oral care and Peridex rinses At this time the area has responded well to treatment, no further treatment needed. I will follow in office Follow up Apr 18 at 3:15 Rx Augmentin, Vicodin and Zofran Admission HPI Per Admitting Provider Rohith Alatorre is a 38 year old male who presents to the ER with left facial swelling and chills. He initially had oral surgery with bottom left implant screw. He was placed on amoxicillin for prophylaxis at that time. 2 weeks follow the antibiotics started his cyclic vomiting syndrome and he had diarrhea (non watery), nausea and vomiting for 2 weeks but managed to stay out of hospital. 5 days ago (Monday) his recent issues started with pain in between two teeth on the upper left side of his mouth. 3 days ago (Monday) he saw his dentist for this with XRs taken and some concern for bacterial build up but was not prescribed any antibiotics - prescribed clove oil and recommended "oil pulling". This oild caused irritation of his mouth the following day (Monday) and swelling of his face started that night and he found it difficult to sleep. Chills started yesterday and the swelling and erythema has significantly increased therefore decided to come to go to [email or web address] who sent him to the ER. ER provider discussed with Dr Mosher and recommended admission for IV antibiotics, NPO at midnight and will be seen in consult. Discharge Data Consultations 04/04/24 19:35 ED Decision to Admit Stat 04/04/24 21:41 Consult Oromaxillofacial Surgery Routine Procedures Performed Operation Date: 04/05/24 15:15 Actual Procedures p Left Facial Incision and Drainage(Left) - Layo Mosher DMD Coding Level of Care Code 62711 IN/OBS DISCH 30 MIN/LESS
== END 2024-04-06 11:52 | disposition home or self-care (01) ==
LOC: ED 13:59 → 3N 13:59 → SUATTDRO 19:07 → 3N 20:00